=== PATIENT | male | born 1990 | race Caucasian/White ===

== ENCOUNTER 2017-01-16 07:05 | Observation (INO) ==
--- NOTE | 2017-01-16 07:37 | Emergency Department Note ---
Disposition Clinical Impression: Flexor tenosynovitis of finger Disposition: Admitted As Inpatient Condition: Fair Time of Disposition: 08:39 Extremity Problem HPI - General Chief complaint: ED Extremity Injury, Upper Stated complaint: right ring finger swelling Time Seen by Provider: 01/16/17 07:22 Source: patient Limitations: other (appears intoxicated) Nursing Notes Reviewed: Yes Vital Signs Reviewed: Yes - History of Present Illness HPI Narrative: Nontoxic-appearing 26-year-old male presents to the emergency department for a second time within the past 6 hours for evaluation of a right fourth finger injury, pain, and swelling. The patient was evaluated at the same facility last night for the same complaint. At that time, he was given a prescription for clindamycin, 300 mg 3 times daily for 7 days, as well as tramadol, 50 mg twice daily as needed for pain. He has yet to get these prescriptions filled, however complains of increasing pain, redness, and swelling. He denies any fever, chills, nausea, vomiting, or signs/symptoms of a systemic infection. The patient does appear to be intoxicated or under the influence. He can answer questions appropriately, however his mentation is slightly delayed. Of note, the patient was found to be wandering the hallways of this hospital after being discharged at 1:00 this morning. He was escorted back to the emergency department lobby, where he again checked in for a repeat evaluation. Pt Subjective Complaint: joint swelling, joint paint Onset (ago): day(s) (yesterday) Consistency: Worsening Injury Location: other (Right fourth finger) Pain Scale: 10 Quality: sharp Worsens with: range of motion, palpation Associated symptoms: Reports: denies other symptoms - Related Data Home Medications Medication Instructions Recorded Confirmed Citalopram Hydrobromide [Celexa] 40 mg PO DAILY 01/16/17 01/16/17 Dextroamphetamine/Amphetamine 20 mg PO BID 01/16/17 01/16/17 [Adderall 20 mg Tablet] Quetiapine Fumarate [SEROquel] 100 mg PO HS 01/16/17 01/16/17 Allergies Allergy/AdvReac Type Severity Reaction Status Date / Time No Known Allergies Allergy Verified 09/17/16 15:42 All systems ED: reviewed and negative except as stated. Constitutional: Denies: fever, chills, weakness, weight change Eyes: Denies: eye pain, eye discharge, vision change ENT ED: Denies: ear pain, throat pain, dental pain, hearing loss, epistaxis, congestion, dysphagia Cardiovascular: Denies: chest pain, palpitations, dyspnea on exertion, edema, syncope Respiratory: Denies: cough, dyspnea, wheezes, hemoptysis, stridor Gastrointestinal: Denies: abdominal pain, nausea, vomiting, diarrhea, constipation, hematemesis, melena, hematochezia Genitourinary: Denies: urgency, dysuria, frequency, hematuria Musculoskeletal: Reports: as per HPI, joint swelling (Right fourth finger swelling), arthralgia (Right fourth finger pain). Denies: back pain, neck pain , myalgia Integumentary: Denies: rash, abrasion, lesions Neurological: Denies: headache, weakness, numbness, paresthesias, confusion, abnormal gait, vertigo Psychiatric: Denies: anxiety, depression, suicidal thoughts, homicidal thoughts , auditory hallucinations, visual hallucinations Endocrine: Denies: fatigue Hematological/Lymphatic: Denies: easy bleeding, easy bruising Allergic/Immunologic: Denies: facial swelling, urticaria Past Medical History - Past Medical History Attestation: Yes The following information was validated with the patient. Source: patient, nursing notes reviewed Medical history: Reports: arthritis Psychiatric history: Reports: ADHD, bipolar - Social History Smoking Status: Current every day smoker Smokeless Tobacco Status: No Alcohol use: Reports: heavy, recent Drug use: Reports: marijuana Physical Exam - General Limitations: no limitations General appearance: alert, in no apparent distress, appears intoxicated - Head Head exam: atraumatic, normocephalic, normal inspection - Eye Eye exam: Present: normal appearance, PERRL, EOMI. Absent: nystagmus - ENT ENT exam: mucous membranes moist - Neck Neck exam: Present: normal inspection, full ROM, trachea midline. Absent: lymphadenopathy - Respiratory Respiratory exam: Present: normal lung sounds bilaterally. Absent: respiratory distress, wheezes, stridor, accessory muscle use, prolonged expiratory phase - Cardiovascular Cardiovascular exam: Present: regular rate, normal rhythm, normal heart sounds - Abdominal Exam Abdominal exam: Present: soft, Non-Tender, normal bowel sounds. Absent: tenderness, distention, guarding, rebound, rigidity - Expanded Upper Extremity Exam Shoulder exam: Present: normal inspection, full ROM Arm exam: Present: normal inspection, full ROM Elbow exam: Present: normal inspection, full ROM Forearm/Wrist exam: Present: normal inspection, full ROM Hand exam: Present: tenderness, swelling, abrasion, ecchymosis, erythema, other (The patient's right fourth digit is uniformly swollen from the MCP joint distally. Slight erythema noted over the region of the fourth metacarpal. This finger is held in a slight position of flexion at rest. There is pain with active flexion of the fourth digit. There is a breach in the skin of the distal phalanx, lateral aspect with moderate ecchymosis associated. The entire digit is moderately erythematous and warm to the touch.). Absent: full ROM, laceration, skin avulsion, deformity, crepitus, dislocation Neuromotor exam: Normal: wrist extension, thumb opposition, fingers 2-5 abduction Neurosensory exam: Normal: radial nerve, ulnar nerve, 2-point discrimination Vascular exam: Normal: capillary refill, radial pulse, ulnar pulse - Neurological Exam Neurological exam: Present: alert - Psychiatric Psychiatric exam: Present: normal affect, normal mood - Skin Skin exam: Present: warm, dry, intact, normal color Course Course Narrative: 0835: I spoke with Dr. Winn, hospitalist. Dr. Winn accepts patient for admission to the hospitalist service with orthopedic consult. - Consultations Consultation #1: I spoke with Dr. Zamora, orthopedist emission specialist. I discussed with Dr. Zamora my concerns for the possibility of a flexor tenosynovitis given the uniform swelling, flexion at rest, pain with flexion, inability to extend the finger, erythema, and wound. Dr. Zamora recommends admission to the hospitalist service with orthopedic consultation for the administration of IV antibiotics. He recommends Vancomycin and Zosyn. He also recommends forgoing the CT of the right hand. Time: 07:52 Vital Signs Temperature 99.0 F 01/16/17 07:05 Pulse Rate 81 01/16/17 07:05 Respiratory Rate 16 01/16/17 07:05 Blood Pressure 126/73 01/16/17 07:05 O2 Sat by Pulse Oximetry 99 01/16/17 07:05 Temperature 99.0 F 01/16/17 07:05 Pulse Rate 106 01/16/17 08:35 Respiratory Rate 16 01/16/17 08:55 Blood Pressure 127/83 01/16/17 08:55 O2 Sat by Pulse Oximetry 97 01/16/17 08:35 Oxygen Delivery Oxygen Delivery Room Air Extremity Problem, Nontraumati - Medical Records Medical records reviewed: Yes I reviewed the patient's medical records. - Lab Data Lab results reviewed: Yes I reviewed the patient's lab results. Result diagrams: 01/16/17 07:45 01/16/17 07:45 Lab Results 01/16/17 01/16/17 01/16/17 Range/Units 07:45 07:45 07:45 WBC 16.1 H (4.3-11.1) K/mcL RBC 4.35 (4.19-5.50) M/mcL Hgb 13.6 (12.9-16.9) g/dL Hct 40.5 (37.5-50.1) % MCV 93.1 (83.0-100.0) fL MCH 31.3 (28.0-33.3) pg MCHC 33.6 (31.6-35.5) g/dL RDW 12.1 (11.5-14.5) % Plt Count 204 (140-400) K/mcL MPV 9.7 (9.4-12.4) fL Immature Gran % 0.6 (0-4) % Seg Neutrophils % 90.0 % Lymphocytes % 3.1 % Monocytes % 6.1 % Eosinophils % 0.0 % Basophils % 0.2 % Neutrophils # 14.5 H (1.6-8.9) K/mcL Lymphocytes # 0.5 L (0.6-4.6) K/mcL Monocytes # 1.0 (0.0-1.3) K/mcL Eosinophils # 0.0 (0.0-0.6) K/mcL Basophils # 0.0 (0.0-0.2) K/mcL ESR 17 H (0-10) mm/hr Sodium 135 L (136-145) mEq/L Potassium 3.5 (3.5-4.5) mEq/L Chloride 104 (98-109) mEq/L Carbon Dioxide 21 (19-29) mEq/L BUN 16 (8-26) mg/dL Creatinine 0.92 (0.72-1.25) mg/dL Est GFR ( Amer) > 60 (> 60) Est GFR (Non-Af Amer) > 60 (> 60) BUN/Creatinine Ratio 17 (6-26) Glucose 106 H (70-99) mg/dL Calculated Osmolality 282 (280-300) Calcium 9.1 (8.6-10.8) mg/dL - Radiology Data Radiology results reviewed: Yes I reviewed the patient's radiology results. Hand X-Ray 01/16/17 07:53 IMPRESSION: No acute osseous abnormality. Soft tissue swelling of the right ring finger and dorsum of the hand. No soft tissue gas. D/ / Pratibha Meeks MD / Pratibha Meeks MD Interpreting Provider: Pratibha Meeks MD Attestation Statement - Attestation Attestation: I, Tan Foley, examined this patient and my medical decision-making was reviewed with the MUD MIXER/PA/Advanced Practice Nurse/Resident Physician. I agree with the documented findings, disposition and treatment plan as described except to the extent set forth below. 26-year-old male presents with pain and swelling and erythema to the right ring finger. Patient states he woke up at his cousin's house with severe pain in the right hand. He does not remember what injury occurred to the right ring finger. Upon my initial evaluation he has significant pain to forced extension of the right ring finger with a large amount of your edema, swelling surrounding the entire finger extending to the proximal metacarpal phalangeal joint. PA spoke with the orthopedic physician, Dr. Zamora, who recommended admission of the hospital for IV antibiotics and will see him on the floor.
[2017-01-16] MEDS ORDERED: Piperacillin/Tazobactam 3.375 GM in D5% in Water (Mini-Bag+) 100 ML IVPB ONE (07:50)
[2017-01-16] MEDS ORDERED: Vancomycin 1,000 MG in D5% in Water 250 ML IVPB ONE (07:50)
[2017-01-16 07:56] LABS: Basophils % 0.2 %; Hematocrit 40.5 % (37.5-50.1); Hemoglobin 13.6 g/dL (12.9-16.9); Immature Granulocytes % 0.6 % (0-4); Lymphocytes # 0.5 K/mcL (0.6-4.6); Lymphocytes % 3.1 %; Mean Corpuscular HGB Conc 33.6 g/dL (31.6-35.5); Mean Corpuscular Hemoglobin 31.3 pg (28.0-33.3); Mean Corpuscular Volume 93.1 fL (83.0-100.0); Mean Platelet Volume 9.7 fL (9.4-12.4); Monocytes % 6.1 %; Neutrophils # 14.5 K/mcL (1.6-8.9); Platelet Count 204 K/mcL (140-400); Red Blood Count 4.35 M/mcL (4.19-5.50); Red Cell Distribution Width 12.1 % (11.5-14.5)
[2017-01-16] MEDS ORDERED: Ketorolac 30 MG/ML VIAL IVP ONE (07:57)
[2017-01-16 08:12] LABS: BUN/Creatinine Ratio 17 (6-26); Blood Urea Nitrogen 16 mg/dL (8-26); Calcium 9.1 mg/dL (8.6-10.8); Carbon Dioxide 21 mEq/L (19-29); Chloride 104 mEq/L (98-109); Glucose 106 mg/dL (70-99); Osmolality,Calculated 282 (280-300); Potassium 3.5 mEq/L (3.5-4.5); Sodium 135 mEq/L (136-145); eGFR For African Americans > 60 (> 60); eGFR For Non-African Americans > 60 (> 60)
[2017-01-16] MEDS ORDERED: *HR* Morphine 2 MG/ML SYRINGE IVP ONE (09:51)
--- NOTE | 2017-01-16 09:58 | Orthopedic Consult Note ---
Date of Encounter: 01/16/17 Time of Encounter: 09:40 Assessment and Plan (1) Flexor tenosynovitis of finger Current Visit: Yes Status: Acute Elevate RUE inside stockinette from IV pole. ROM of hand as tolerated. Pain control per hospitalist. Continue IV vancomycin and zosyn. Will monitor for any improvement overnight. WBC has increased from 11 to 16.1 over 6hr time frame this morning. ESR elevated at 17. NPO after midnight tonight for possible surgery if no improvement or worsening overnight. Pending drug screen for patient's incoherence. History of Present Illness Chief complaint: right ring finger swelling HPI: Mr. Segura is a 26 year old male who presented to the ER this morning for right finger swelling and pain. He was given script for clindamycin and discharged. Per ER note patient was found wandering the halls of the hospital and brought back to ER and later admitted as swelling and redness had worsened. Patient unable to answer questions appropriately stating this was a work injuries several days ago but then said it happened Friday and then saying he wasnt sure exactly how it happened. He could not remember the actual injury. He thinks he just noticed the swelling early this morning when he originally came to ER. Denies numbness to finger but kept saying the whole hand hurt and could not give any other descriptions. Past Med Surg Social Fam HX - Past Medical History Medical history: arthritis Psychiatric history: ADHD, bipolar - Social History Smoking Status: Current every day smoker Smokeless Tobacco Status: No Alcohol use: heavy, recent Drug use: marijuana Medications and Allergies Citalopram Hydrobromide [Celexa] 40 mg PO DAILY 01/16/17 [History] Dextroamphetamine/Amphetamine [Adderall 20 mg Tablet] 20 mg PO BID 01/16/17 [ History] Quetiapine Fumarate [SEROquel] 100 mg PO HS 01/16/17 [History] Allergies No Known Allergies Allergy (Verified 09/17/16 15:42) ROS unobtainable: due to mental status (patient did not answer questions appropriately, asked me to repeat questions and then would fall asleep during exam. He would startle himself back awake and then ask where he was) All Systems Reviewed: A 10-system review of systems was performed and is negative for pertinent findings except as documented above in the HPI. Physical Exam - Constitutional Vitals: Temp Pulse Resp BP Pulse Ox 99.0 F 106 16 127/83 97 01/16/17 07:05 01/16/17 08:35 01/16/17 08:55 01/16/17 08:55 01/16/17 08:35 - Wrist & Hand right Location of pain: ring finger (Right ring finger moderately swollen uniformely through entire finger with erythema streaking into hand on dorsal side.Small open wound noted to dorsal ulnar side of RF distal phalanx with sourrounding ecchymosis. held in flexed position with limited AROM. Significant pain on passive extension/flexion of the RF. Significant tenderness along flexor tendon sheath upon palpation. NV intact with brisk cap refill) Results - Labs Result Diagrams: 01/16/17 07:45 01/16/17 07:45 Labs: Abnormal lab results WBC 16.1 K/mcL (4.3-11.1) H 01/16/17 07:45 Neutrophils # 14.5 K/mcL (1.6-8.9) H 01/16/17 07:45 Lymphocytes # 0.5 K/mcL (0.6-4.6) L 01/16/17 07:45 ESR 17 mm/hr (0-10) H 01/16/17 07:45 Sodium 135 mEq/L (136-145) L 01/16/17 07:45 Glucose 106 mg/dL (70-99) H 01/16/17 07:45 All other labs normal. - Diagnostic results Wrist/Hand x-ray: report reviewed, image reviewed (no acute bony abnormality, soft tissue swelling with no soft tissue gas) Consult Discharge Plan - Plan Referrals: NO,PCP [Primary Care Provider] - - Attending Attestation Case and plan of care discussed with supervising physician who was available for all aspects of care.
[2017-01-16] MEDS ORDERED: Ondansetron 4 MG/2 ML VIAL IVP PRN (10:12)
[2017-01-16] MEDS ORDERED: Naloxone 0.4 MG/ML INJ IVP PRN (10:12)
[2017-01-16] MEDS ORDERED: Acetaminophen 325 MG TABLET PO PRN (10:12)
--- NOTE | 2017-01-16 10:14 | Internal Med History&Physical ---
Date of Encounter: 01/16/17 Time of Encounter: 09:30 Assessment and Plan (1) Flexor tenosynovitis of finger Current visit: Yes Status: Acute right 4th digit tenosynovitis. He presented to our ED overnight because of pain and swelling on his right 4th and 3rd finger. Patient is alert and oriented x3 but very confused, and restless , and unable to provide a good history of present illness. Per records, he came to our ED overnight and was discharged to home on clindamycin and tramadol but he never left the hospital to get filled his prescription due to severe pain in his right hand. He was found wandering the hallways of this hospital at 1am and was escorted back to the ED. 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 He thinks he noticed swelling and pain on his right fingers 2 days ago but yesterday night, the pain and swelling became so severe that he seek medical attention. He reports fever and chills at home as well as hematuria. No other skin lesions or joint pain. No headache. No penile discharge. No dysuria. No animal or human bite. He lives in a [facility]. He denies any drugs or alcohol use. Xray of hand showed no acute process and no gas. Orthopedic consulted. continue Iv Vancomycin and Zosyn. blood cultures taken. pain control. (2) Cellulitis of ring finger Current visit: Yes Status: Acute plan as above. Qualifiers: Laterality: right Qualified Code(s): L03.011 - Cellulitis of right finger (3) Confusion Current visit: Yes Status: Acute suspect drug abuse but patient denies it. check urine drug screen. (4) Depression Current visit: Yes Status: Acute continue home dose of celexa and seroquel Qualifiers: Depression Type: unspecified Qualified Code(s): F32.9 - Major depressive disorder, single episode, unspecified (5) Hematuria Current visit: Yes Status: Acute new onset this morning. check UA, chlamydia and gonorrhea. Internal Medicine - H&P: HPI Chief complaint: right finger pain for 2 days Admitted From: Home Plans for Post Hospital Care: Home History of present illness: Mr. Segura is a 26 year old male with past medical history of depression on Seroquel and Celexa and ADHD on adderall who presents to our ED overnight because of pain and swelling on his right 4th and 3rd finger. Patient is alert and oriented x3 but very confused, and restless, and unable to provide a good history of present illness. Per records, he came to our ED overnight and was discharged to home on clindamycin and tramadol but he never left the hospital to get filled his prescription due to severe pain in his right hand. He was found wandering the hallways of this hospital at 1am and was escorted back to the ED. 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 He thinks he noticed swelling and pain on his right fingers 2 days ago but yesterday night, the pain and swelling became so severe that he seek medical attention. He reports fever and chills at home as well as hematuria. No other skin lesions or joint pain. No headache. No penile discharge. No dysuria. No animal or human bite. He lives in a [facility]. He denies any drugs or alcohol use. Past Med Surg Social Fam HX - Past Medical History Medical history: arthritis Psychiatric history: ADHD, bipolar, depression - Social History Smoking Status: Current every day smoker Smokeless Tobacco Status: No Alcohol use: heavy, recent Drug use: marijuana - Family History Mother Hx Family Cardiac Disorders: Yes (htn) Internal Medicine - H&P: Meds Citalopram Hydrobromide [Celexa] 40 mg PO DAILY 01/16/17 [History] Dextroamphetamine/Amphetamine [Adderall 20 mg Tablet] 20 mg PO BID 01/16/17 [ History] Quetiapine Fumarate [SEROquel] 100 mg PO HS 01/16/17 [History] Allergies No Known Allergies Allergy (Verified 09/17/16 15:42) All Systems PM: A 10-system review of systems was performed and is negative for pertinent findings except as documented above in the HPI. - Constitutional Vitals: Temp Pulse Resp BP Pulse Ox 99.0 F 106 16 127/83 97 01/16/17 07:05 01/16/17 08:35 01/16/17 08:55 01/16/17 08:55 01/16/17 08:35 General appearance: Present: cooperative, A&O X 3, pleasant, no acute distress, answers questions appropriately - Eye Eye exam: Present: PERRL - Respiratory Respiratory exam: Present: CTAB - Cardiovascular Cardiovascular exam: Present: RRR - GI/Abdominal GI/Abdominal exam: Present: normal bowel sounds, soft. Absent: distended, tenderness - Extremities Exam Extremities exam: Absent: pedal edema Additional comments: right fourth digit: there is erythema, swelling and tenderness to minimal touch from MCP to distal phalange. the finger is held in a flexed position and ROM is limited due to pain. there is a small skin opening on his distal phalange that has a yellow crust and a area of ecchymosis nearby. Third digit has mild swelling. - Neurological Exam Neurological exam: Present: alert, oriented X3, no focal deficits, strengths equal and symetr throughout. Absent: pronater drift, facial droop, speech deficit Additional comments: patient is confused and his speech is delayed. he states that he is in so severe pain that he can not think straight. no neck pain. no neck rigidity. - Skin Skin exam: Absent: intact (patient has multiple skin breaks in his arms and legs. Forehead: there is a yellow crust in between his eyebrows with a red base ulceration. ) Internal Med - H&P Results - Labs CBC & Chem 7: 01/16/17 07:45 01/16/17 07:45
[2017-01-16 10:40] LABS: Alanine Aminotransferase 14 Units/L (0-55); Albumin 3.9 g/dL (3.5-5.0); Albumin/Globulin Ratio 1.4 (1.1-2.2); Alkaline Phosphatase 81 Units/L (38-126); Aspartate Amino Transferase 21 Units/L (5-34); Bilirubin,Direct 0.5 mg/dL (0.0-0.5); Bilirubin,Indirect 1.3 mg/dL (0.0-1.2); Bilirubin,Total 1.8 mg/dL (0.2-1.2); C-Reactive Protein 68 mg/L (Less than 5); Globulin 2.7 g/dL (2.4-3.5); Magnesium 1.8 mg/dL (1.6-2.6); Phosphorous 1.8 mg/dL (2.3-4.7); Total Protein 6.6 g/dL (6.0-8.3)
[2017-01-16 10:42] LABS: INR 1.3; Prothrombin Time 14.5 Seconds (9.4-12.1)
[2017-01-16 10:45] LABS: Activated Partial Thrombo Time 32.1 Seconds (26.0-36.0)
[2017-01-16] MEDS: Ringers Solution, Lactated 1,000 ML IVC SCH (11:52)
[2017-01-16 18:08] LABS: Bilirubin,Urine Negative (Negative); Blood,Urine Small (Negative); Clarity,Urine Clear (Clear); Color,Urine Yellow (Yellow); Glucose,Urine (UA) Normal (Normal); Ketones,Urine 15 mg/dL (Negative); Leukocyte Esterase,Urine Negative (Negative); Nitrite,Urine Negative (Negative); Protein,Urine 30 mg/dL (Neg-Trace); Specific Gravity,Urine >= 1.030 (1.010-1.025); Urobilinogen,Urine Normal (Normal)
[2017-01-16 18:10] LABS: Amphetamine Screen,Urine Positive ng/mL (Cutoff=1000); Barbiturate Screen,Urine Negative ng/mL (Cutoff=200); Benzodiazepines Screen,Urine Negative ng/mL (Cutoff=200); Cannabinoid Screen,Urine Positive ng/mL (Cutoff = 50); Cocaine Screen,Urine Negative ng/mL (Cutoff= 300); Opiate Screen,Urine Negative ng/mL (Cutoff=300); Phencyclidine Screen,Urine Negative ng/mL (Cutoff=25)
[2017-01-16 18:24] LABS: Bacteria,Urine Few per hpf (None-Few)
[2017-01-16] MEDS: *HR* HYDROcodone/Acet 5/325 mg TABLET PO PRN (21:30)
[2017-01-17] MEDS: *HR* Morphine 2 MG/ML SYRINGE IVP PRN ×5 (00:25→20:33)
[2017-01-17] MEDS: Ringers Solution, Lactated 1,000 ML IVC SCH (00:26)
[2017-01-17] MEDS: *HR* HYDROcodone/Acet 5/325 mg TABLET PO PRN ×3 (03:09→22:15)
[2017-01-17 04:59] LABS: Basophils % 0.3 %; Eosinophils # 0.1 K/mcL (0.0-0.6); Hematocrit 38.4 % (37.5-50.1); Hemoglobin 12.8 g/dL (12.9-16.9); Immature Granulocytes % 0.3 % (0-4); Lymphocytes % 11.3 %; Mean Corpuscular HGB Conc 33.3 g/dL (31.6-35.5); Mean Corpuscular Hemoglobin 31.4 pg (28.0-33.3); Mean Corpuscular Volume 94.1 fL (83.0-100.0); Mean Platelet Volume 10.5 fL (9.4-12.4); Monocytes # 1.1 K/mcL (0.0-1.3); Monocytes % 12.1 %; Neutrophils # 6.8 K/mcL (1.6-8.9); Platelet Count 189 K/mcL (140-400); Red Blood Count 4.08 M/mcL (4.19-5.50); Red Cell Distribution Width 12.6 % (11.5-14.5)
[2017-01-17 05:26] LABS: BUN/Creatinine Ratio 14 (6-26); Blood Urea Nitrogen 11 mg/dL (8-26); Calcium 8.4 mg/dL (8.6-10.8); Carbon Dioxide 23 mEq/L (19-29); Chloride 108 mEq/L (98-109); Glucose 113 mg/dL (70-99); Osmolality,Calculated 284 (280-300); Potassium 3.6 mEq/L (3.5-4.5); Sodium 137 mEq/L (136-145); eGFR For African Americans > 60 (> 60); eGFR For Non-African Americans > 60 (> 60)
[2017-01-17] MEDS ORDERED: Lidocaine 1% 20 ML MDV ID ONE (09:31)
[2017-01-17] MEDS: Pantoprazole 40 MG VIAL IVP SCH (09:36)
[2017-01-17] MEDS ORDERED: Ondansetron 4 MG/2 ML VIAL ONE (10:31)
[2017-01-17] MEDS ORDERED: Vancomycin 2,000 MG in D5% in Water 250 ML IVPB SCH (12:00)
--- NOTE | 2017-01-17 13:33 | Internal Med Progress Note ---
Date of Encounter: 01/17/17 Time of Encounter: 13:31 - Assessment and plan (1) Flexor tenosynovitis of finger Current Visit: Yes Status: Acute Assessment and plan: persistent swelling and redness of eliza right hand mostly 4th and 5th finger. reports decreased sensation at the tip of 4th and 5th finger continue IV vanco and Zosyn follow blood cx, seen by ortho , appreciate recommendations planned for bedside I and D today. pain control. (2) Confusion Current Visit: Yes Status: Acute Assessment and plan: no confusion at present alert, awake and orientedx3, may have been confused due to severe pain yest - Subjective Interval history: seen at the bedside, c/o pain and swelling of the right hand, admitted for cellulitis seen by , planned for bedside I ad D. - Constitutional Vitals: Temp Pulse Resp BP Pulse Ox 99.8 F H 61 16 112/69 96 01/17/17 11:04 01/17/17 11:04 01/17/17 11:04 01/17/17 11:04 01/17/17 11:04 General appearance: Present: cooperative, A&O X 3, pleasant, no acute distress, answers questions appropriately Exam: - Eye Eye exam: Present: PERRL - Respiratory Respiratory exam: Present: CTAB - Cardiovascular Cardiovascular exam: Present: RRR - GI/Abdominal GI/Abdominal exam: Present: normal bowel sounds, soft. Absent: distended, tenderness - Extremities Exam Extremities exam: Absent: pedal edema Additional comments: right fourth digit: there is erythema, swelling and tenderness to minimal touch from MCP to distal phalange. the finger is held in a flexed position and ROM is limited due to pain. there is a small skin opening on his distal phalange that has a yellow crust and a area of ecchymosis nearby. Third digit has mild swelling. Neurological Exam Neurological exam: Present: alert, oriented X3, no focal deficits, strengths equal and symetr throughout. Absent: pronater drift, facial droop, speech deficit - Skin Skin exam: Absent: intact (patient has multiple skin breaks in his arms and legs. Forehead: there is a yellow crust in between his eyebrows with a red base ulceration Internal Medicine: Result - Labs CBC & Chem 7: 01/17/17 04:20 01/17/17 04:20 Labs: Short CBC 01/17/17 Range/Units 04:20 WBC 9.1 (4.3-11.1) K/mcL Hgb 12.8 L (12.9-16.9) g/dL Hct 38.4 (37.5-50.1) % Plt Count 189 (140-400) K/mcL Neutrophils # 6.8 (1.6-8.9) K/mcL BMP 01/17/17 04:20 Sodium 137 Potassium 3.6 Chloride 108 Carbon Dioxide 23 BUN 11 Creatinine 0.77 Glucose 113 H Calcium 8.4 L Urine 01/16/17 Range/Units 17:56 Urine Color Yellow (Yellow) Urine Clarity Clear (Clear) Urine pH 6.0 (5.0-8.0) pH Units Ur Specific [place] >= 1.030 H (1.010-1.025) Urine Protein 30 H (Neg-Trace) mg/dL Urine Glucose (UA) Normal (Normal) mg/dL - ABG Interpretation ABG results: PT/INR, D-dimer PT 14.5 Seconds (9.4-12.1) H 01/16/17 10:30 Consult Discharge Plan - Plan Referrals: NO,PCP [Primary Care Provider] -
[2017-01-17] MEDS: Vancomycin 1,250 MG in D5% in Water 250 ML IVPB SCH (14:21)
[2017-01-17] MEDS: Nicotine 14 MG PATCH.TD24 TD SCH (14:21)
--- NOTE | 2017-01-17 15:59 | Orthopedics Progress Note ---
Date of Encounter: 01/17/17 Time of Encounter: 12:45 - Assessment and Plan (1) Flexor tenosynovitis of finger Current Visit: Yes Status: Acute Patient also examined by Dr. Zamora this morning who recommended bedside I&D. I discussed the procedure as well as r/b/a and patient expressed understanding. Consent signed and given to nurse. Right ring finger was prepped and draped in sterile fashion using hibiclense. Digital block performed using 6cc 1% lidocaine. #11blade scapel used to make incision on ulnar side of the ring finger. Area did bleed some with very minimal purulent drainage. cx collected. No deep loculations noted. Area was not large enough to insert packing. Incision irrigated with saline and bulky dry dressings applied. Elevate RUE inside stockinette from IV pole. ROM of hand as tolerated. Pain control per hospitalist. Continue IV vancomycin and zosyn. WBC has decreased from 16.1 to 9.1 today. Subjective Principal diagnosis: right ring finger swelling Interval history: Patient states still having significant pain but better controlled with pain medication. no events overnight. States he did keep his hand elevated in stockinette overnight. admits to numbness to ring finger. Patient more alert and oriented today. 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 He removed a hang nail to the ring finger near the open wound a few days before this all started. Objective Vital signs: Vital Signs Temp Pulse Resp BP Pulse Ox 01/17/17 15:39 99.5 F 82 16 126/71 96 01/17/17 11:04 99.8 F H 61 16 112/69 96 01/17/17 06:49 99.6 F 67 16 116/70 94 01/17/17 04:45 98.6 F 69 18 111/70 96 01/17/17 00:19 99.3 F 72 16 107/64 95 01/16/17 21:00 100.3 F H 86 16 95/58 95 01/16/17 15:56 100.1 F H 87 18 109/67 95 Intake and Output 01/16/17 01/17/17 01/17/17 23:59 07:59 15:59 Intake Total 1000 / 1000 Output Total 300 / 300 250 / 250 700 / 700 Balance -300 / -300 750 / 750 -700 / -700 Intake: IV Fluids 1000 / 1000 Lactated Ringers 1,000 ML 1000 / 1000 @ 75 mls/hr IVC .[id number] [facility] Rx#:[id number] Output: Urine 300 / 300 250 / 250 700 / 700 Other: # Voids 1 Weight 92.034 kg Patient Weight 01/17/17 23:59 Weight 92.034 kg Incision: swollen (right ring finger has worsening uniform swelling and erythema and developed blister like area on ulnar side of finger just proximal to the open wound that is roughly 4cm long. continues to hold finger in flexed postion. no active drainage. Restricted ROM of all fingers but especially the ring finger. significant tenderness along all sides of finger. brisk cap refill , NV intact) - Labs CBC & BMP: 01/17/17 04:20 01/17/17 04:20 Labs: Abnormal lab results RBC 4.08 M/mcL (4.19-5.50) L 01/17/17 04:20 Hgb 12.8 g/dL (12.9-16.9) L 01/17/17 04:20 ESR 17 mm/hr (0-10) H 01/16/17 07:45 PT 14.5 Seconds (9.4-12.1) H 01/16/17 10:30 Glucose 113 mg/dL (70-99) H 01/17/17 04:20 Calcium 8.4 mg/dL (8.6-10.8) L 01/17/17 04:20 Phosphorus 1.8 mg/dL (2.3-4.7) L 01/16/17 07:45 Total Bilirubin 1.8 mg/dL (0.2-1.2) H 01/16/17 07:45 Indirect Bilirubin 1.3 mg/dL (0.0-1.2) H 01/16/17 07:45 C-Reactive Protein 68 mg/L (Less than 5) H 01/16/17 07:45 Ur Specific [place] >= 1.030 (1.010-1.025) H 01/16/17 17:56 Urine Protein 30 mg/dL (Neg-Trace) H 01/16/17 17:56 Urine Ketones 15 mg/dL (Negative) H 01/16/17 17:56 Urine Blood Small (Negative) H 01/16/17 17:56 Urine Microscopic RBC 3-5 per hpf (0-3) H 01/16/17 17:56 Ur Amphetamines Screen Positive ng/mL (Enatip=5489) H 01/16/17 17:30 U Marijuana (THC) Screen Positive ng/mL (Cutoff = 50) H 01/16/17 17:30 Consult Discharge Plan - Plan Referrals: NO,PCP [Primary Care Provider] -
[2017-01-18] MEDS: Vancomycin 1,250 MG in D5% in Water 250 ML IVPB SCH ×2 (00:28→12:29)
[2017-01-18] MEDS: *HR* Morphine 2 MG/ML SYRINGE IVP PRN ×2 (00:34→04:42)
[2017-01-18] MEDS: *HR* HYDROcodone/Acet 5/325 mg TABLET PO PRN ×2 (03:39→09:01)
--- NOTE | 2017-01-18 08:18 | Orthopedics Progress Note ---
Date of Encounter: 01/18/17 Time of Encounter: 08:13 Subjective Principal diagnosis: right ring finger swelling Interval history: S: Patient seen at the bedside. Complains of persistent pain to the right ring finger. Had an I and D yesterday by Destinee Nowak along the dorsal/ulnar aspect of the hand. O: Afebrile, VSS Right ring finger moderately swollen/edametous with edema to the hand. There is a blister that had been unroofed over the dorsal/ulnar aspect of the ring finger Slightly cloudy drainage from this area with focal tenderness most pronounced over this area. He is able go gently flex and extend the digit without significant worsening of his symptoms. Mild tenderness volarly along the digit A: Right ring finger infection P: Continue broad spectrum antibiotics in the mean time. Follow up cultures from yesterdays I and D. Minimal concern for a purulent flexor tenosynovitis. Elevation. Will add toradol to his meds. Objective Vital signs: Vital Signs Temp Pulse Resp BP Pulse Ox 01/18/17 07:05 99.2 F 79 18 125/80 99 01/18/17 03:52 98.8 F 70 16 123/78 96 01/17/17 23:52 99.5 F 72 14 131/82 97 01/17/17 20:42 97 01/17/17 19:18 99.4 F 62 16 116/75 96 01/17/17 15:39 99.5 F 82 16 126/71 96 01/17/17 11:04 99.8 F H 61 16 112/69 96 Intake and Output 01/17/17 01/18/17 01/18/17 23:59 07:59 15:59 Intake Total 250 / 250 350 / 350 Output Total 300 / 300 Balance 250 / 250 50 / 50 Intake: IV Fluids 250 / 250 250 / 250 Vancocin 1,250 MG In 250 / 250 250 / 250 Dextrose 5% 250 ML @ 166. 67 mls/hr IVPB Q12H [facility] Rx#:[id number] Oral 100 / 100 Output: Urine 300 / 300 Other: Weight 93 kg Patient Weight 01/18/17 23:59 Weight 93 kg - Labs CBC & BMP: 01/17/17 04:20 01/17/17 04:20 Labs: Abnormal lab results RBC 4.08 M/mcL (4.19-5.50) L 01/17/17 04:20 Hgb 12.8 g/dL (12.9-16.9) L 01/17/17 04:20 ESR 17 mm/hr (0-10) H 01/16/17 07:45 PT 14.5 Seconds (9.4-12.1) H 01/16/17 10:30 Glucose 113 mg/dL (70-99) H 01/17/17 04:20 Calcium 8.4 mg/dL (8.6-10.8) L 01/17/17 04:20 Phosphorus 1.8 mg/dL (2.3-4.7) L 01/16/17 07:45 Total Bilirubin 1.8 mg/dL (0.2-1.2) H 01/16/17 07:45 Indirect Bilirubin 1.3 mg/dL (0.0-1.2) H 01/16/17 07:45 C-Reactive Protein 68 mg/L (Less than 5) H 01/16/17 07:45 Ur Specific [place] >= 1.030 (1.010-1.025) H 01/16/17 17:56 Urine Protein 30 mg/dL (Neg-Trace) H 01/16/17 17:56 Urine Ketones 15 mg/dL (Negative) H 01/16/17 17:56 Urine Blood Small (Negative) H 01/16/17 17:56 Urine Microscopic RBC 3-5 per hpf (0-3) H 01/16/17 17:56 Ur Amphetamines Screen Positive ng/mL (Mtsszk=7430) H 01/16/17 17:30 U Marijuana (THC) Screen Positive ng/mL (Cutoff = 50) H 01/16/17 17:30 Consult Discharge Plan - Plan Referrals: NO,PCP [Primary Care Provider] -
[2017-01-18] MEDS: Nicotine 14 MG PATCH.TD24 TD SCH (09:00)
[2017-01-18] MEDS: Pantoprazole 40 MG VIAL IVP SCH (09:01)
[2017-01-18] MEDS: Ketorolac 30 MG/ML VIAL IVP SCH ×3 (12:01→22:58)
--- NOTE | 2017-01-18 15:22 | Internal Med Progress Note ---
Date of Encounter: 01/18/17 Time of Encounter: 15:19 - Assessment and plan (1) Flexor tenosynovitis of finger Current Visit: Yes Status: Acute Assessment and plan: persistent swelling and redness of eliza right hand mostly 4th and 5th finger, appears clinically better than yest. continue IV vanco and Zosyn prelim blood cx shows no growth, seen by ortho , appreciate recommendations s/p bedside I and D yesterday pain control. (2) Confusion Current Visit: Yes Status: Acute Assessment and plan: no confusion at present alert, awake and orientedx3, may have been confused due to severe pain yest - Subjective Interval history: seen at the bedside, c/o persistent pain and swelling of the right hand, admitted for cellulitis followed by , s/p bedside I ad D yesterday. - Constitutional Vitals: Temp Pulse Resp BP Pulse Ox 98.7 F 73 14 130/85 98 01/18/17 11:20 01/18/17 11:20 01/18/17 11:20 01/18/17 11:20 01/18/17 11:20 General appearance: Present: cooperative, A&O X 3, pleasant, no acute distress, answers questions appropriately Exam: - Eye Eye exam: Present: PERRL - Respiratory Respiratory exam: Present: CTAB - Cardiovascular Cardiovascular exam: Present: RRR - GI/Abdominal GI/Abdominal exam: Present: normal bowel sounds, soft. Absent: distended, tenderness - Extremities Exam Extremities exam: Absent: pedal edema Additional comments: right fourth digit: there is erythema, swelling and tenderness to minimal touch from MCP to distal phalange. wrapped in gauze,ROM is limited due to pain. Third digit has mild swelling. Neurological Exam Neurological exam: Present: alert, oriented X3, no focal deficits, strengths equal and symetr throughout. Absent: pronater drift, facial droop, speech deficit - Skin Skin exam: Absent: intact (patient has multiple skin breaks in his arms and legs. Forehead: there is a yellow crust in between his eyebrows with a red base ulceration Internal Medicine: Result - Labs CBC & Chem 7: 01/17/17 04:20 01/17/17 04:20 - ABG Interpretation ABG results: PT/INR, D-dimer PT 14.5 Seconds (9.4-12.1) H 01/16/17 10:30 Consult Discharge Plan - Plan Referrals: NO,PCP [Non-Partnered Physician] -
[2017-01-19] MEDS: *HR* HYDROcodone/Acet 5/325 mg TABLET PO PRN ×5 (00:13→20:32)
[2017-01-19] MEDS: Vancomycin 1,250 MG in D5% in Water 250 ML IVPB SCH ×3 (00:15→20:29)
[2017-01-19] MEDS: Ketorolac 30 MG/ML VIAL IVP SCH ×3 (06:49→18:58)
--- NOTE | 2017-01-19 09:35 | Orthopedics Progress Note ---
Date of Encounter: 01/19/17 Time of Encounter: 09:33 Subjective Principal diagnosis: right ring finger swelling Interval history: S: Patient seen at the bedside. Pain improved significantly compared to yesterday. No new complaints. O: Afebrile, VSS Right ring finger mildly swollen/edametous with edema to the hand, improved compared to yesterday. There is a blister that had been unroofed over the dorsal/ulnar aspect of the ring finger No drainage from this area with focal tenderness most pronounced over this area. He is able go flex and extend the digit without significant worsening of his symptoms. A: Right ring finger infection, improving P: Continue broad spectrum antibiotics in the mean time. Elevation. Since he is now improving, continue Abx with anticipation of switching to orals soon. No plans or surgical drainage. Will continue to follow clinically. Objective Vital signs: Vital Signs Temp Pulse Resp BP Pulse Ox 01/19/17 07:09 97.6 F 61 16 128/79 97 01/19/17 04:24 98.6 F 62 15 131/83 97 01/18/17 23:19 98.3 F 82 16 126/72 94 01/18/17 19:53 98.5 F 61 16 132/88 97 01/18/17 16:12 98.5 F 60 16 119/75 99 01/18/17 11:20 98.7 F 73 14 130/85 98 Intake and Output 01/18/17 01/19/17 01/19/17 23:59 07:59 15:59 Intake Total 250 / 250 Balance 250 / 250 Intake: IV Fluids 250 / 250 Vancocin 1,250 MG In 250 / 250 Dextrose 5% 250 ML @ 166. 67 mls/hr IVPB Q12H [facility] Rx#:[id number] Other: Weight 91.9 kg Patient Weight 01/19/17 23:59 Weight 91.9 kg - Labs CBC & BMP: 01/17/17 04:20 01/17/17 04:20 Labs: Abnormal lab results RBC 4.08 M/mcL (4.19-5.50) L 01/17/17 04:20 Hgb 12.8 g/dL (12.9-16.9) L 01/17/17 04:20 ESR 17 mm/hr (0-10) H 01/16/17 07:45 PT 14.5 Seconds (9.4-12.1) H 01/16/17 10:30 Glucose 113 mg/dL (70-99) H 01/17/17 04:20 Calcium 8.4 mg/dL (8.6-10.8) L 01/17/17 04:20 Phosphorus 1.8 mg/dL (2.3-4.7) L 01/16/17 07:45 Total Bilirubin 1.8 mg/dL (0.2-1.2) H 01/16/17 07:45 Indirect Bilirubin 1.3 mg/dL (0.0-1.2) H 01/16/17 07:45 C-Reactive Protein 68 mg/L (Less than 5) H 01/16/17 07:45 Ur Specific [place] >= 1.030 (1.010-1.025) H 01/16/17 17:56 Urine Protein 30 mg/dL (Neg-Trace) H 01/16/17 17:56 Urine Ketones 15 mg/dL (Negative) H 01/16/17 17:56 Urine Blood Small (Negative) H 01/16/17 17:56 Urine Microscopic RBC 3-5 per hpf (0-3) H 01/16/17 17:56 Ur Amphetamines Screen Positive ng/mL (Fclsuh=8517) H 01/16/17 17:30 U Marijuana (THC) Screen Positive ng/mL (Cutoff = 50) H 01/16/17 17:30 Consult Discharge Plan - Plan Referrals: NO,PCP [Non-Partnered Physician] -
[2017-01-19] MEDS: Pantoprazole 40 MG VIAL IVP SCH (10:48)
[2017-01-19] MEDS: Nicotine 14 MG PATCH.TD24 TD SCH (10:48)
[2017-01-19 11:53] LABS: Vancomycin,Trough 5.6 mcg/mL (10-20)
--- NOTE | 2017-01-19 12:17 | Internal Med Progress Note ---
Date of Encounter: 01/19/17 Time of Encounter: 12:14 - Assessment and plan (1) Flexor tenosynovitis of finger Current Visit: Yes Status: Acute Assessment and plan: persistent swelling and redness of eliza right hand mostly 4th and 5th finger, appears clinically better than yest. continue IV vanco prelim blood cx shows no growth, seen by ortho , appreciate recommendations s/p bedside I and D pain control. will plan dc tomm on oral antibiotics. (2) Confusion Current Visit: Yes Status: Acute Assessment and plan: no confusion at present alert, awake and orientedx3, may have been confused due to severe pain yest - Subjective Interval history: seen at the bedside, reports improvement in pain and swelling of the right hand, admitted for cellulitis followed by , s/p bedside I ad D . continue IV vanco for today, plan to dc tomm on oral. - Constitutional Vitals: Temp Pulse Resp BP Pulse Ox 97.6 F 61 16 128/79 97 01/19/17 07:09 01/19/17 07:09 01/19/17 07:09 01/19/17 07:09 01/19/17 07:09 General appearance: Present: cooperative, A&O X 3, pleasant, no acute distress, answers questions appropriately Exam: Exam: - Eye Eye exam: Present: PERRL - Respiratory Respiratory exam: Present: CTAB - Cardiovascular Cardiovascular exam: Present: RRR - GI/Abdominal GI/Abdominal exam: Present: normal bowel sounds, soft. Absent: distended, tenderness - Extremities Exam Extremities exam: Absent: pedal edema Additional comments: right fourth digit: there is improved erythema, swelling and tenderness MCP to distal phalange. wrapped in gauze,ROM is limited due to pain. Third digit has mild swelling. Neurological Exam Neurological exam: Present: alert, oriented X3, no focal deficits, strengths equal and symetr throughout. Absent: pronater drift, facial droop, speech deficit - Skin Skin exam: Absent: intact (patient has multiple skin breaks in his arms and legs. Forehead: there is a yellow crust in between his eyebrows with a red base ulceration Internal Medicine: Result - Labs CBC & Chem 7: 01/17/17 04:20 01/17/17 04:20 - ABG Interpretation ABG results: PT/INR, D-dimer PT 14.5 Seconds (9.4-12.1) H 01/16/17 10:30 Consult Discharge Plan - Plan Referrals: NO,PCP [Non-Partnered Physician] -
[2017-01-19 15:35] LABS: BUN/Creatinine Ratio 12 (6-26); Blood Urea Nitrogen 8 mg/dL (8-26); eGFR For African Americans > 60 (> 60); eGFR For Non-African Americans > 60 (> 60)
[2017-01-20] MEDS: Ketorolac 30 MG/ML VIAL IVP SCH ×2 (00:06→09:30)
[2017-01-20] MEDS: *HR* HYDROcodone/Acet 5/325 mg TABLET PO PRN ×3 (00:35→10:05)
[2017-01-20] MEDS: Vancomycin 1,250 MG in D5% in Water 250 ML IVPB SCH (03:49)
[2017-01-20] MEDS: Nicotine 14 MG PATCH.TD24 TD SCH (09:38)
--- NOTE | 2017-01-20 09:51 | Discharge Summary ---
Date of Encounter: 01/20/17 Time of Encounter: 09:49 - Discharge Diagnosis (1) Flexor tenosynovitis of finger Priority: Primary Status: Acute (2) Confusion Priority: Primary Status: Acute - Discharge Medications Prescriptions: HYDROcodone/Acet 5/325 mg [[place] 5-325 mg] 1 tab PO Q4HR PRN #20 tablet PRN Reason: Moderate Pain (4-6) Amoxicillin/Clavulanate [Augmentin] 875 mg PO BIDWM #10 tablet Home Medications: Citalopram Hydrobromide [Celexa] 40 mg PO DAILY 01/16/17 [History] Dextroamphetamine/Amphetamine [Adderall 20 mg Tablet] 20 mg PO BID 01/16/17 [ History] Quetiapine Fumarate [Seroquel] 100 mg PO HS 01/16/17 [History] Amoxicillin/Clavulanate [Augmentin] 875 mg PO BIDWM #10 tablet 01/20/17 [Rx] HYDROcodone/Acet 5/325 mg [[place] 5-325 mg] 1 tab PO Q4HR PRN #20 tablet [Rx] Allergies/Adverse Reactions: Allergies No Known Allergies Allergy (Verified 09/17/16 15:42) Date of admission: 01/16/17 08:43 Primary care physician: Tobias Michael DO Discharging clinician: Denys Whiting Anticipated date of discharge: 01/20/17 - Patient Status Disposition: Home, Self-Care Condition: Fair Functional capacity at discharge: independent ambulation Overall status at discharge: patient is back to baseline - Discharge Instructions Follow Up With: Destinee Mcallister, PAC [Physician Addiction Professional] - 01/27/17 2:30 pm NO,PCP [Non-Partnered Physician] - Additional Instructions: THREE TIMES A DAY, REMOVE YOUR DRESSING AND WASH FINGER WITH SOAP AND WATER. THEN, GENTLY PAT DRY AND COVER WITH GAUZE AND WRAP WITH COBAN. PLEASE ATTEND ALL APPOINTMENTS SCHEDULED. PLEASE TAKE ALL MEDICATIONS PRESCRIBED. CALL DESTINEE MCALLISTER'S OFFICE IF YOU HAVE ANY GREEN, YELLOW, BROWN OR FOUL SMELLING DRAINAGE FROM THE SITE. CALL IF SWELLING OR REDNESS WORSENS, OR IF YOU HAVE ANY OTHER CONCERNS. FIND A PRIMARY CARE PROVIDER TO ESTABLISH CARE. - Diet and Activity Activity: resume usual activities as tolerated Diet: advance to your usual diet Interval History: Mr. Segura is a 26 year old male with past medical history of depression on Seroquel and Celexa and ADHD on adderall who presents to our ED overnight because of pain and swelling on his right 4th and 3rd finger.No animal or human bite. He lives in a long-term. He denies any drugs or alcohol use. Per records, he came to our ED overnight and was discharged to home on clindamycin and tramadol but he never left the hospital to get filled his prescription due to severe pain in his right hand. He was found wandering the hallways of this hospital at 1am and was escorted back to the ED. 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 He thinks he noticed swelling and pain on his right fingers 2 days ago but yesterday night, the pain and swelling became so severe that he seek medical attention. He reports fever and chills at home as well as hematuria. No other skin lesions or joint pain. No headache. No penile discharge. No dysuria. No animal or human bite. He lives in a long-term. He denies any drugs or alcohol use. Xray of hand showed no acute process and no gas. ortho was consulted and he was started on Iv antibiotics, he underwent bedside Iand D with ortho and was continued on IV antibiotics he is being dc today in stable condition, the cellulitis has improved clinically and will be dc with oral antibiotics , will f/u with ortho as OP. Hospital course: Mr. Segura is a 26 year old male - Time Spent with Patient Total time spent providing and/or coordinating discharge services: - Constitutional Vitals: Temp Pulse Resp BP Pulse Ox 98.3 F 56 18 132/81 98 01/20/17 06:46 01/20/17 06:46 01/20/17 06:46 01/20/17 06:46 01/20/17 06:46 General appearance: Present: cooperative, A&O X 3, pleasant, no acute distress, answers questions appropriately Exam: - Eye Eye exam: Present: PERRL - Respiratory Respiratory exam: Present: CTAB - Cardiovascular Cardiovascular exam: Present: RRR - GI/Abdominal GI/Abdominal exam: Present: normal bowel sounds, soft. Absent: distended, tenderness - Extremities Exam Extremities exam: Absent: pedal edema Additional comments: right fourth digit: there is erythema, swelling and tenderness but has improved , wrapped in gauze,ROM is limited due to pain. Third digit has mild swelling. Neurological Exam Neurological exam: Present: alert, oriented X3, no focal deficits, strengths equal and symetr throughout. Absent: pronater drift, facial droop, speech deficit - Skin Skin exam: Absent: intact (patient has multiple skin breaks in his arms and legs. Forehead: there is a yellow crust in between his eyebrows with a red base ulceration
[2017-01-20 10:55] VITALS: BP 106/61
[2017-01-20] MEDS ORDERED: Aminoglycoside Consult 1 EACH MC ONE (12:41)
== END 2017-01-20 12:42 | disposition home or self-care (01) ==
LOC: EMEROO 07:05 → 3NENU 07:05
PROVIDERS: ADMIT Internal Medicine; ATTEND Internal Medicine Endocrinology, Diabetes & Metabolism

== ENCOUNTER 2017-01-28 18:43 | Inpatient (IN) ==
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
[2017-01-28 19:34] LABS: Amphetamine Screen,Urine Negative ng/mL (Cutoff=1000); Barbiturate Screen,Urine Negative ng/mL (Cutoff=200); Benzodiazepines Screen,Urine Negative ng/mL (Cutoff=200); Cannabinoid Screen,Urine Positive ng/mL (Cutoff = 50); Cocaine Screen,Urine Negative ng/mL (Cutoff= 300); Opiate Screen,Urine Positive ng/mL (Cutoff=300); Phencyclidine Screen,Urine Negative ng/mL (Cutoff=25)
[2017-01-28 19:47] LABS: Basophils # 0.1 K/mcL (0.0-0.2); Basophils % 0.7 %; Eosinophils # 0.1 K/mcL (0.0-0.6); Eosinophils % 1.8 %; Hematocrit 42.8 % (37.5-50.1); Hemoglobin 14.2 g/dL (12.9-16.9); Immature Granulocytes % 0.4 % (0-4); Immature Platelets 2.5 % (1.1-6.1); Lymphocytes # 2.2 K/mcL (0.6-4.6); Lymphocytes % 29.7 %; Mean Corpuscular HGB Conc 33.2 g/dL (31.6-35.5); Mean Corpuscular Hemoglobin 30.8 pg (28.0-33.3); Mean Corpuscular Volume 92.8 fL (83.0-100.0); Mean Platelet Volume 9.3 fL (9.4-12.4); Monocytes # 0.9 K/mcL (0.0-1.3); Monocytes % 11.6 %; Neutrophils # 4.1 K/mcL (1.6-8.9); Platelet Count 408 K/mcL (140-400); Red Blood Count 4.61 M/mcL (4.19-5.50); Red Cell Distribution Width 12.1 % (11.5-14.5); Segmented Neutrophils % 55.8 %
[2017-01-28] MEDS ORDERED: *HR* HYDROcodone/Acet 10/325 mg TABLET PO ONE (20:00)
[2017-01-28 20:01] LABS: BUN/Creatinine Ratio 12 (6-26); Blood Urea Nitrogen 9 mg/dL (8-26); Calcium 8.8 mg/dL (8.6-10.8); Carbon Dioxide 25 mEq/L (19-29); Chloride 106 mEq/L (98-109); Glucose 86 mg/dL (70-99); Osmolality,Calculated 286 (280-300); Potassium 3.7 mEq/L (3.5-4.5); Sodium 139 mEq/L (136-145); eGFR For African Americans > 60 (> 60); eGFR For Non-African Americans > 60 (> 60)
[2017-01-28 20:04] LABS: Platelet Estimate Normal (Normal); Reactive Lymphocytes Present (Not Present)
[2017-01-28 20:06] LABS: Acetaminophen < 1.0 mcg/mL (10-30); Ethanol < 10 mg/dL (0-10); Salicylate < 5.0 mg/dL (15-30)
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
[2017-01-29] MEDS ORDERED: MOM Conc 10 ML UD.LIQ PO PRN (15:50)
[2017-01-29] MEDS ORDERED: Haloperidol Lactate 5 MG/ML VIAL IM PRN (15:50)
[2017-01-29] MEDS ORDERED: Mag Hydrox/Al Hydrox/Simeth 30 ML UDC PO PRN (15:50)
[2017-01-29] MEDS: Ibuprofen 400 MG TABLET PO PRN (17:01)
[2017-01-29] MEDS: Nicotine 2 MG GUM BC PRN (17:02)
[2017-01-30] MEDS: Nicotine 2 MG GUM BC PRN ×2 (13:54→19:09)
--- NOTE | 2017-01-30 14:01 | Psychiatry History & Physical ---
Date of Encounter: 01/30/17 Time of Encounter: 13:53 History of Present Illness Patient Stated Chief Complaint: suicidal ideation Medicare Admission Attestation: For traditional Medicare patients the provided hospital inpatient services are reasonable and necessary and in the case of services not specified as inpatient -only under 42 CFR 419.22 (n), that they are appropriately provided as inpatient services in accordance 42 CFR 412.3. For Critical Access Hospital the patient may reasonably be expected to be discharged or transferred to a hospital within 96 hours after admission to the Critical Access Hospital. Admitted From: Home Plans for Post Hospital Care: Home History of Present Illness: Mr. Segura is a 26 year old male who was admitted secondary to SI. Presented to the ER claiming his [facility]....Celexa, Seroquel, Adderall, and [place] for an infection in his finger. Reported he would no longer feel suicidal if he could be placed back on his medications. Given Celexa and Seroquel. Informed he would need to return to outpatient provider who he has a contract with for controlled substances for the others. Continued to endorse SI without full medication regimen so admitted to 1A. Today he reports feeling the same. Claims Celexa and Seroquel only work with Adderall in the mix. Has an appointment February 12 with his outpatient provider. Reported his diagnosis is Bipolar Disorder, however, he also agreed with ADHD when asked if he had ever received that diagnosis as Adderall is not typically used for other psychiatric conditions. Informed him ADHD is rarely treated in an inpatient setting. Unclear discharge plan as he does not seem to stay in one place for very long. Denied medical problems or substance abuse problems. Past Med Surg Social Fam HX - Past Medical History Medical history: arthritis - Past Psychiatric History Psychiatric history: Reports: bipolar Family psychiatric history: Unknown Family History of Suicide: Unknown - Past Surgical History Surgical History: non-contributory - Social History Smoking Status: Current every day smoker Smokeless Tobacco Status: No Alcohol use: occasionally Drug use: marijuana - Family History Mother Hx Family Cardiac Disorders: Yes (htn) Medications & Allergies Citalopram Hydrobromide [Celexa] 40 mg PO DAILY 01/16/17 [History] Dextroamphetamine/Amphetamine [Adderall 20 mg Tablet] 20 mg PO BID 01/16/17 [ History] Quetiapine Fumarate [Seroquel] 100 mg PO HS 01/16/17 [History] Allergies No Known Allergies Allergy (Verified 01/28/17 18:50) Review of Systems Constitutional: Denies: fever, chills, weakness, weight change Eyes: Denies: eye pain, vision change Ears, Nose, Throat: Denies: ear pain, throat pain, dental pain, hearing loss, congestion Cardiovascular: Denies: chest pain, palpitations, dyspnea on exertion Respiratory: Denies: cough, dyspnea, wheezes Gastrointestinal: Denies: abdominal pain, nausea, vomiting, diarrhea, constipation Genitourinary male: Denies: urgency, dysuria, frequency, genital lesions Genitourinary female: Denies: urgency, dysuria, frequency, abnormal menses, dyspareunia Musculoskeletal: Reports: joint pain Neurological: Denies: headache, weakness, numbness, memory loss Endocrine: Denies: fatigue, heat or cold intolerance Hematologic/Lymphatic: Denies: easy bruising, lymphadenopathy Allergic/Immunologic: Denies: urticaria, itchy eyes Mental Status Exam Patient orientation: Yes Person, Yes Time, Yes Place Level of alertness: Alert Patient appearance: Appropriate, Well Groomed Behavior: calm, cooperative Psychomotor activity: Normal Eye contact: Minimal Contact Mood description: Irritable Affect description: congruent with mood Speech pattern: Normal rate, Normal rhythm, Normal tone Speech volume: Normal Thought process: Linear, Goal Oriented Thought content: Yes Suicidal ideation Perceptual disturbances: No Auditory hallucinations, No Visual hallucinations Attention span: Capable of Focused Attention Memory description: Grossly Intact Patient reliability: Questionable Historian Intelligence estimate: Average Judgment: Limited Insight: Minimal Exam - HEENT Head exam IM: Present: atraumatic Eye exam IM: Present: EOMI - Neurological Neurological exam IM: Present: alert, oriented X3 - Respiratory Respiratory exam IM: Present: CTAB - GI/Abdominal GI/Abdominal exam IM: Present: normal bowel sounds - Extremities Extremities exam IM: Present: tenderness - Skin Skin exam IM: Present: normal color Results - Vital Signs Vital signs: Temp Pulse Resp BP Pulse Ox 98.4 F 80 18 120/72 100 01/29/17 20:53 01/29/17 20:53 01/29/17 20:53 01/29/17 20:53 01/29/17 11:39 - Labs Labs: Laboratory Last Values WBC 7.3 K/mcL (4.3-11.1) 01/28/17 19:39 RBC 4.61 M/mcL (4.19-5.50) 01/28/17 19:39 Hgb 14.2 g/dL (12.9-16.9) 01/28/17 19:39 Hct 42.8 % (37.5-50.1) 01/28/17 19:39 MCV 92.8 fL (83.0-100.0) 01/28/17 19:39 MCH 30.8 pg (28.0-33.3) 01/28/17 19:39 MCHC 33.2 g/dL (31.6-35.5) 01/28/17 19:39 RDW 12.1 % (11.5-14.5) 01/28/17 19:39 Plt Count 408 K/mcL (140-400) H 01/28/17 19:39 MPV 9.3 fL (9.4-12.4) L 01/28/17 19:39 Immature Gran % 0.4 % (0-4) 01/28/17 19:39 Seg Neutrophils % 55.8 % 01/28/17 19:39 Lymphocytes % 29.7 % 01/28/17 19:39 Monocytes % 11.6 % 01/28/17 19:39 Eosinophils % 1.8 % 01/28/17 19:39 Basophils % 0.7 % 01/28/17 19:39 Neutrophils # 4.1 K/mcL (1.6-8.9) 01/28/17 19:39 Lymphocytes # 2.2 K/mcL (0.6-4.6) 01/28/17 19:39 Monocytes # 0.9 K/mcL (0.0-1.3) 01/28/17 19:39 Eosinophils # 0.1 K/mcL (0.0-0.6) 01/28/17 19:39 Basophils # 0.1 K/mcL (0.0-0.2) 01/28/17 19:39 Reactive Lymphocytes Present (Not Present) A 01/28/17 19:39 Platelet Estimate Normal (Normal) 01/28/17 19:39 Immature Plt Fraction 2.5 % (1.1-6.1) 01/28/17 19:39 Sodium 139 mEq/L (136-145) 01/28/17 19:39 Potassium 3.7 mEq/L (3.5-4.5) 01/28/17 19:39 Chloride 106 mEq/L (98-109) 01/28/17 19:39 Carbon Dioxide 25 mEq/L (19-29) 01/28/17 19:39 BUN 9 mg/dL (8-26) 01/28/17 19:39 Creatinine 0.76 mg/dL (0.72-1.25) 01/28/17 19:39 Est GFR ( Amer) > 60 (> 60) 01/28/17 19:39 Est GFR (Non-Af Amer) > 60 (> 60) 01/28/17 19:39 BUN/Creatinine Ratio 12 (6-26) 01/28/17 19:39 Glucose 86 mg/dL (70-99) 01/28/17 19:39 Calculated Osmolality 286 (280-300) 01/28/17 19:39 Calcium 8.8 mg/dL (8.6-10.8) 01/28/17 19:39 Salicylates < 5.0 mg/dL (15-30) L 01/28/17 19:39 Urine Opiates Screen Positive ng/mL (Awnbhi=662) H 01/28/17 19:20 Acetaminophen < 1.0 mcg/mL (10-30) L 01/28/17 19:39 Ur Barbiturates Screen Negative ng/mL (Pnojec=065) 01/28/17 19:20 Ur Phencyclidine Scrn Negative ng/mL (Cutoff=25) 01/28/17 19:20 Ur Amphetamines Screen Negative ng/mL (Cvjsuf=5871) 01/28/17 19:20 U Benzodiazepines Scrn Negative ng/mL (Nnofhi=323) 01/28/17 19:20 Urine Cocaine Screen Negative ng/mL (Cutoff= 300) 01/28/17 19:20 U Marijuana (THC) Screen Positive ng/mL (Cutoff = 50) H 01/28/17 19:20 Ethyl Alcohol < 10 mg/dL (0-10) 01/28/17 19:39 Assessment and Plan (1) Bipolar disorder Current visit: Yes Status: Acute Plan: Admit inpatient for safety and stabilization, Close observation, Suicide Precautions per unit protocol, Encourage participation in unit milieu, Group Therapy, Monitor sleep, Monitor appetite Risks, benefits, side effects, alternatives discussed w/pt: Yes Patient agreeable to treatment: Yes Plans for Post Hospital Care: Home Estimated Length of Stay (Days): 4 Qualifiers: Active/Remission status: currently active Current bipolar episode type: depressed Current episode severity: moderate Qualified Code(s): F31.32 - Bipolar disorder, current episode depressed, moderate
[2017-01-30] MEDS: Ibuprofen 400 MG TABLET PO PRN (19:09)
[2017-01-31] MEDS: Nicotine 2 MG GUM BC PRN ×4 (08:42→21:00)
--- NOTE | 2017-01-31 13:37 | Psychiatry Progress Note ---
Date of Encounter: 01/31/17 Time of Encounter: 13:32 Subjective Interval history: Client still having significant pain in finger. Removed bandage and finger does look infected. Red and swollen. Client is unsure if he is still supposed to be taking antibiotics or when he is scheduled for follow-up for care. Will consult wound care or hospitalist for advice on best way to manage infection and pain. Client is denying SI today but reports he is isolating and does not want to talk to anyone. Feeling anxious. Asking to try Wellbutrin. Unsure if he has tried this medication in the past but feels Celexa is not working for him and he is hearing good things from the other patients about Wellbutrin. Wellbutrin may also help with ADHD if that is an accurate diagnosis for him. Will also help replace some of the activation he feels he is missing from not getting the Adderall. May be beneficial in this situation although he may not get significant anxiety relief from it. Review of Systems Constitutional: Denies: fever, chills, weakness, weight change Eyes: Denies: eye pain, vision change Ears, Nose, Throat: Denies: ear pain, throat pain, dental pain, hearing loss, congestion Cardiovascular: Denies: chest pain, palpitations, dyspnea on exertion Respiratory: Denies: cough, dyspnea, wheezes Gastrointestinal: Denies: abdominal pain, nausea, vomiting, diarrhea, constipation Musculoskeletal: Reports: joint swelling, joint pain Neurological: Denies: headache, weakness, numbness, memory loss Objective: Exam Patient orientation: Yes Person, Yes Time, Yes Place Level of alertness: Alert Patient appearance: Appropriate, Well Groomed Behavior: calm, cooperative Psychomotor activity: Normal Eye contact: Minimal Contact Mood description: Depressed, Anxious Affect description: congruent with mood Speech pattern: Normal rate, Normal rhythm, Normal tone Speech volume: Normal Thought process: Linear, Goal Oriented Thought content: No Suicidal ideation, No Homicidal ideation, No Overt delusions Perceptual disturbances: No Auditory hallucinations, No Visual hallucinations Judgment: Fair Insight: Partial Results - Vital Signs Vital Signs: Temp Pulse Resp BP Pulse Ox 98.4 F 60 18 117/72 100 01/31/17 08:43 01/31/17 08:43 01/31/17 08:43 01/31/17 08:43 01/29/17 11:39 Assessment and Plan (1) Bipolar disorder Current visit: Yes Status: Acute Plan: Continue hospitalization, Close observation, Suicide Precautions per unit protocol, Encourage participation in unit milieu, Group Therapy, Monitor sleep, Monitor appetite Risks, benefits, side effects, alternatives discussed w/pt: Yes Patient agreeable to treatment: Yes Qualifiers: Active/Remission status: currently active Current bipolar episode type: depressed Current episode severity: moderate Qualified Code(s): F31.32 - Bipolar disorder, current episode depressed, moderate Consult Discharge Plan - Plan Referrals: [facility] [Outside] - 02/18/17 2:30 pm (The above appointment is with Jannet Plummer, for mental health and substance abuse counseling. When you come to your first appointment, you will have an orientation to the agency and meet with the counselor. Please bring the following with you to your first visit to the clinic: 1) proof of household income (two consecutive pay stubs, social security award letter, bank statement , statement letter from [facility], child support statement, IRS 1040 or W2 form, or a statement from the person who financially supports you stating they help provide for your basic needs), 2) proof of residency (drivers license, a piece of mail showing your address, a statement from person you live with verifying you live at their address), 3) your social security card, 4) photo ID, 5) your insurance card (if you have commercial insurance you must call to obtain a prior authorization number before you arrive to your first appointment) and 6) if you do not have insurance but have applied for Medicaid, please bring verification you have applied. You may contact the office regularly to check for cancellations that may allow you to be seen sooner. ) Aureliano Beebe PAC [Physician Industrial Waste Treatment Technician] - 02/18/17 4:00 pm (The above appointment is with Aureliano Beebe's associate, Maura Flanagan CNP, at [facility]. This appointment is to establish you with a primary care provider. Your needs for medication and/or Vivitrol will be assessed and treated as indicated as well. Please arrive 15 minutes early to complete paperwork. Please bring your insurance card, photo ID and list of current medications to your first appointment. This is the first available appointment. You may contact the office regularly to check for cancellations that may allow you to be seen sooner. )
--- NOTE | 2017-01-31 14:11 | Internal Medicine Consult Note ---
Date of Encounter: 01/31/17 Time of Encounter: 14:08 - Assessment and Plan (1) Flexor tenosynovitis of finger Current Visit: Yes Status: Chronic Assessment and plan: Patient with well treated with flexor tenosynovitis involving the right fourth finger. Cellulitis seems to have improved but erythema and swelling remaining. As the patient has not had leukocytosis or fever, or any discharge and the site does not appear to be tender, I do not believe he needs any further antibiotics. Recommend keeping the hand elevated and treat symptomatically for pain. If he does develop fever or chills or the swelling and erythema get worse , would recommend another course of antibiotics and follow-up with hand surgery. Internal Medicine - CN: HPI - Data of Consult Patient: known to practice within the last 3 years Requesting Physician: Vickie Johnson MD - Consult Narrative Reason for consult: Swelling and redness involving the right fourth finger History of present illness: Mr. Segura is a 26 year old male patient With history of bipolar disorder, ADHD and depression who is currently admitted to the psychiatric unit for suicidal ideation was found to have swelling and redness involving his right fourth finger. Patient had been recently admitted to the hospital for flexor tenosynovitis involving the same finger and had been treated for it with IV antibiotics and then oral antibiotics. He completed treatment with oral antibiotics ( Augmentin) about 5 days back. He does not have any increase in size or discharge from the site, he does have continued pain. He had been discharged on [place] but present in the psychiatric unit he is not receiving any narcotic medications. No fever reported. His blood work from 01/28 shows normal WBC count. Past Med Surg Social Fam HX - Past Medical History Attestation: Yes The following information was validated with the patient. Source: old records reviewed Medical history: arthritis Psychiatric history: bipolar - Past Surgical History Surgical History: non-contributory - Social History Smoking Status: Current every day smoker Packs per day: 1 ppd Smokeless Tobacco Status: No Alcohol use: occasionally Drug use: marijuana - Family History Mother Hx Family Cardiac Disorders: Yes (htn) All systems: reviewed and no additional remarkable complaints except as stated - Constitutional Constitutional: no chills, no fever(s) - Cardiovascular Cardiovascular ROS IM: as per HPI - Respiratory Respiratory: as per HPI - Gastrointestinal Gastrointestinal: as per HPI - Integumentary Integumentary IM: erythema, rash Internal Medicine - CN: Meds Citalopram Hydrobromide [Celexa] 40 mg PO DAILY 01/16/17 [History] Dextroamphetamine/Amphetamine [Adderall 20 mg Tablet] 20 mg PO BID 01/16/17 [ History] Quetiapine Fumarate [Seroquel] 100 mg PO HS 01/16/17 [History] Allergies No Known Allergies Allergy (Verified 01/28/17 18:50) Internal Medicine - CN: Exam - Constitutional Vitals: Temp Pulse Resp BP Pulse Ox 98.4 F 60 18 117/72 100 01/31/17 08:43 01/31/17 08:43 01/31/17 08:43 01/31/17 08:43 01/29/17 11:39 General appearance IM: Present: cooperative, A&O X 3, answers questions appropriately - Extremities Exam Additional comments: Erythema involving the right fourth finger with swelling. Decreased range of motion at the interphalangeal joints due to swelling. However does not appear to be an active infection with warmth or tenderness to palpation. There is an open ulcer on the lateral surface of the middle digit that has clean base and margins without any discharge. - Expanded Upper Extremities Exam Hand L/R front image: 1 - erythema Internal Medicine - CN: Reslt - Labs CBC & Chem 7: 01/28/17 19:39 01/28/17 19:39 Consult Discharge Plan - Plan [facility] - 02/18/17 2:30 pm (The above appointment is with Jannet Plummer, for mental health and substance abuse counseling. When you come to your first appointment, you will have an orientation to the agency and meet with the counselor. Please bring the following with you to your first visit to the clinic: 1) proof of household income (two consecutive pay stubs, social security award letter, bank statement , statement letter from [facility], child support statement, IRS 1040 or W2 form, or a statement from the person who financially supports you stating they help provide for your basic needs), 2) proof of residency (drivers license, a piece of mail showing your address, a statement from person you live with verifying you live at their address), 3) your social security card, 4) photo ID, 5) your insurance card (if you have commercial insurance you must call to obtain a prior authorization number before you arrive to your first appointment) and 6) if you do not have insurance but have applied for Medicaid, please bring verification you have applied. You may contact the office regularly to check for cancellations that may allow you to be seen sooner. ) Aureliano Beebe, MONICA [Physician Fret Saw Operator] - 02/18/17 4:00 pm (The above appointment is with Aureliano Beebe's associate, Maura Flanagan CNP, at [facility]. This appointment is to establish you with a primary care provider. Your needs for medication and/or Vivitrol will be assessed and treated as indicated as well. Please arrive 15 minutes early to complete paperwork. Please bring your insurance card, photo ID and list of current medications to your first appointment. This is the first available appointment. You may contact the office regularly to check for cancellations that may allow you to be seen sooner. )
[2017-01-31] MEDS: hydrOXYzine pamoate 25 MG CAPSULE PO PRN ×2 (14:29→20:57)
[2017-01-31] MEDS: Ibuprofen 400 MG TABLET PO PRN (14:30)
--- NOTE | 2017-01-31 17:44 | Orthopedic Consult Note ---
Date of Encounter: 01/31/17 Time of Encounter: 17:45 Assessment and Plan (1) Flexor tenosynovitis of finger Current Visit: Yes Status: Chronic Discussed his situation with patient regarding his finger and discussed case with Dr. Zamora. Recommended wound cleansing with Hibiclens, application of 2x2 gauze, and 1-2 layers of gauze wrap with paper tape to the finger. Change twice daily and when saturated. Keep clean and dry. Start Bactrim DS antibiotic BID for 10 days as seems may be infected still or reinfected. Wound cultures from I& D at last admission reviewed - no growth. Discussed pain regimen: Patient to have Motrin, Tylenol as needed for pain control. No narcotics to be provided. Patient to apply ice as needed 20 minutes on, 20mins off for pain and swelling. Occupational therapy consultation. The above communicated to nursing staff on 1A. Thank you for this consultation. History of Present Illness Chief complaint: right finger pain HPI: Mr. Segura is a 26 year old male with right 4th digit swelling and pain. Patient was recently admitted with flexor tenosynovitis which was incised and drained here in the hospital at that time. Patient did not follow up as an outpatient. As he has been readmitted for other medical conditions, we were consulted for his hand. Mr. Segura states that the finger is in fact improved however he finished the Augmentin antibiotic several days ago and has not had medical follow up. he admits that he has had loose bowels since starting the Augmentin. In discussion it appears Mr. Segura has been favoring his right hand as the pain and swelling has been impacting his ability to perform ADLs. He states that the pain has been increasing in this digit over the past several days. As he is currently admitted inpatient to the psychiatric unit he is unable to take narcotics. In discussing this with him he states that he has been taking Motrin with mild relief in pain. He states he has been trying to keep it covered but has noted some weeping drainage. On exam, Mr. Segura is pleasant, alert, and oriented. His right 4th digit displays significant edema, blanching when flexed or extended at all IP joints with restricted ROM. There is an appx 2cm in length and 1cm in height wound with 1x1cm ulceration with overlying slough and pinpoint bleeding at periphery to medial aspect overlying the DIP joint of the right 4th digit. This is exquisitely tender to touch. There is scattered exfoliative scaling of skin from the wound to the dorsal aspect of the right wrist. Nailbeds are intact without disruption. 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 Wrist flexion/extension intact. Discussed his situation with him regarding his finger and discussed case with Dr. Zamora. Recommended wound cleansing with Hibiclens, application of 2x2 gauze , and 1-2 layers of gauze wrap with paper tape to the finger. Change twice daily and when saturated. Keep clean and dry. Start Bactrim DS antibiotic BID for 10 days as seems may be infected still or reinfected. Wound cultures from I& D at last admission reviewed - no growth. Discussed pain regimen: Patient to have Motrin, Tylenol as needed for pain control. No narcotics to be provided. Patient to apply ice as needed 20 minutes on, 20mins off for pain and swelling. Occupational therapy consultation. The above communicated to nursing staff on 1A. Patient to follow up outpatient as needed. If still inpatient through the weekend, would be happy to monitor progress with regard to finger. Thank you for this consultation. Past Med Surg Social Fam HX - Past Medical History Medical history: arthritis Psychiatric history: bipolar - Past Surgical History Surgical History: non-contributory - Social History Smoking Status: Current every day smoker Packs per day: 1 ppd Smokeless Tobacco Status: No Alcohol use: occasionally Drug use: marijuana - Family History Mother Hx Family Cardiac Disorders: Yes (htn) Medications and Allergies Citalopram Hydrobromide [Celexa] 40 mg PO DAILY 01/16/17 [History] Dextroamphetamine/Amphetamine [Adderall 20 mg Tablet] 20 mg PO BID 01/16/17 [ History] Quetiapine Fumarate [Seroquel] 100 mg PO HS 01/16/17 [History] Allergies No Known Allergies Allergy (Verified 01/28/17 18:50) All Systems Reviewed: A 10-system review of systems was performed and is negative for pertinent findings except as documented above in the HPI. Physical Exam - Constitutional Vitals: Temp Pulse Resp BP Pulse Ox 98.4 F 60 18 117/72 100 01/31/17 08:43 01/31/17 08:43 01/31/17 08:43 01/31/17 08:43 01/29/17 11:39 Results - Labs Result Diagrams: 01/28/17 19:39 01/28/17 19:39 Labs: Abnormal lab results Plt Count 408 K/mcL (140-400) H 01/28/17 19:39 MPV 9.3 fL (9.4-12.4) L 01/28/17 19:39 Reactive Lymphocytes Present (Not Present) A 01/28/17 19:39 Salicylates < 5.0 mg/dL (15-30) L 01/28/17 19:39 Urine Opiates Screen Positive ng/mL (Gsrrmw=345) H 01/28/17 19:20 Acetaminophen < 1.0 mcg/mL (10-30) L 01/28/17 19:39 U Marijuana (THC) Screen Positive ng/mL (Cutoff = 50) H 01/28/17 19:20 All other labs normal. Consult Discharge Plan - Plan [facility] - 02/18/17 2:30 pm (The above appointment is with Jannet Plummer, for mental health and substance abuse counseling. When you come to your first appointment, you will have an orientation to the agency and meet with the counselor. Please bring the following with you to your first visit to the clinic: 1) proof of household income (two consecutive pay stubs, social security award letter, bank statement , statement letter from [facility], child support statement, IRS 1040 or W2 form, or a statement from the person who financially supports you stating they help provide for your basic needs), 2) proof of residency (drivers license, a piece of mail showing your address, a statement from person you live with verifying you live at their address), 3) your social security card, 4) photo ID, 5) your insurance card (if you have commercial insurance you must call to obtain a prior authorization number before you arrive to your first appointment) and 6) if you do not have insurance but have applied for Medicaid, please bring verification you have applied. You may contact the office regularly to check for cancellations that may allow you to be seen sooner. ) Aureliano Beebe, PAC [Physician Cash Processing Specialist] - 02/18/17 4:00 pm (The above appointment is with Aureliano Beebe's associate, Maura Flanagan CNP, at [facility]. This appointment is to establish you with a primary care provider. Your needs for medication and/or Vivitrol will be assessed and treated as indicated as well. Please arrive 15 minutes early to complete paperwork. Please bring your insurance card, photo ID and list of current medications to your first appointment. This is the first available appointment. You may contact the office regularly to check for cancellations that may allow you to be seen sooner. )
[2017-01-31] MEDS: Sulfamethoxazole/Trimeth DS 1 EACH TABLET PO SCH (20:57)
[2017-02-01 08:15] LABS: Basophils # 0.1 K/mcL (0.0-0.2); Basophils % 0.9 %; Eosinophils # 0.2 K/mcL (0.0-0.6); Eosinophils % 2.6 %; Hematocrit 41.4 % (37.5-50.1); Immature Granulocytes % 0.6 % (0-4); Lymphocytes % 28.9 %; Mean Corpuscular HGB Conc 33.8 g/dL (31.6-35.5); Mean Corpuscular Hemoglobin 31.5 pg (28.0-33.3); Mean Corpuscular Volume 93.2 fL (83.0-100.0); Mean Platelet Volume 10.3 fL (9.4-12.4); Monocytes # 0.8 K/mcL (0.0-1.3); Monocytes % 11.2 %; Neutrophils # 3.9 K/mcL (1.6-8.9); Platelet Count 311 K/mcL (140-400); Red Blood Count 4.44 M/mcL (4.19-5.50); Red Cell Distribution Width 12.4 % (11.5-14.5); Segmented Neutrophils % 55.8 %
[2017-02-01] MEDS: Sulfamethoxazole/Trimeth DS 1 EACH TABLET PO SCH ×2 (09:08→20:06)
[2017-02-01] MEDS: BuPROPion XL (24 HR) 150 MG TABLET PO SCH (09:08)
[2017-02-01] MEDS: Nicotine 2 MG GUM BC PRN ×6 (09:13→22:21)
--- NOTE | 2017-02-01 09:49 | Psychiatry Progress Note ---
Date of Encounter: 02/01/17 Time of Encounter: 09:15 Subjective Interval history: Patient seen and interviewed. History and physical examination is review. Patient is isolated and withdrawn. He is endorsing some depression. Tolerating medications fairly well. Denying any suicidal ideations but unable to verbalize a safety plan. Patient is worried and anxious about his housing situation. Encouraged to attend groups and participate in activities. Review of Systems Psychiatric: Reports: depression, anhedonia, hopelessness Objective: Exam Patient orientation: Yes Person, Yes Time, Yes Place Level of alertness: Alert Patient appearance: Appropriate, Well Groomed Behavior: withdrawn Psychomotor activity: Normal Eye contact: Maintains Eye Contact Mood description: Depressed Affect description: constricted, dysphoric Speech pattern: Normal rate, Normal rhythm, Normal tone Speech volume: Normal Thought process: Linear, Goal Oriented Thought content: No Suicidal ideation, No Homicidal ideation, No Overt delusions Perceptual disturbances: No Auditory hallucinations, No Visual hallucinations Judgment: Limited Insight: Minimal Results - Vital Signs Vital Signs: Temp Pulse Resp BP Pulse Ox 98.2 F 75 14 128/84 100 01/31/17 21:00 01/31/17 21:00 01/31/17 21:00 01/31/17 21:00 01/29/17 11:39 - Labs Labs: Laboratory Results - last 24 hr 02/01/17 07:27 WBC 7.0 RBC 4.44 Hgb 14.0 Hct 41.4 MCV 93.2 MCH 31.5 MCHC 33.8 RDW 12.4 Plt Count 311 MPV 10.3 Immature Gran % 0.6 Seg Neutrophils % 55.8 Lymphocytes % 28.9 Monocytes % 11.2 Eosinophils % 2.6 Basophils % 0.9 Neutrophils # 3.9 Lymphocytes # 2.0 Monocytes # 0.8 Eosinophils # 0.2 Basophils # 0.1 Assessment and Plan (1) Depression Current visit: Yes Status: Acute Plan: Continue hospitalization, Close observation, Suicide Precautions per unit protocol, Encourage participation in unit milieu, Group Therapy, Monitor sleep, Monitor appetite Risks, benefits, side effects, alternatives discussed w/pt: Yes Patient agreeable to treatment: Yes Qualifiers: Depression Type: unspecified Qualified Code(s): F32.9 - Major depressive disorder, single episode, unspecified Consult Discharge Plan - Plan [facility] - 02/18/17 2:30 pm (The above appointment is with Jannet Plummer, for mental health and substance abuse counseling. When you come to your first appointment, you will have an orientation to the agency and meet with the counselor. Please bring the following with you to your first visit to the clinic: 1) proof of household income (two consecutive pay stubs, social security award letter, bank statement , statement letter from [facility], child support statement, IRS 1040 or W2 form, or a statement from the person who financially supports you stating they help provide for your basic needs), 2) proof of residency (drivers license, a piece of mail showing your address, a statement from person you live with verifying you live at their address), 3) your social security card, 4) photo ID, 5) your insurance card (if you have commercial insurance you must call to obtain a prior authorization number before you arrive to your first appointment) and 6) if you do not have insurance but have applied for Medicaid, please bring verification you have applied. You may contact the office regularly to check for cancellations that may allow you to be seen sooner. ) Aureliano Beebe, MONICA [Physician Media Relations Coordinator] - 02/18/17 4:00 pm (The above appointment is with Aureliano Beebe's associate, Maura Flanagan CNP, at [facility]. This appointment is to establish you with a primary care provider. Your needs for medication and/or Vivitrol will be assessed and treated as indicated as well. Please arrive 15 minutes early to complete paperwork. Please bring your insurance card, photo ID and list of current medications to your first appointment. This is the first available appointment. You may contact the office regularly to check for cancellations that may allow you to be seen sooner. )
[2017-02-01] MEDS: hydrOXYzine pamoate 25 MG CAPSULE PO PRN ×3 (11:19→18:55)
[2017-02-01] MEDS: Ibuprofen 400 MG TABLET PO PRN (11:20)
--- NOTE | 2017-02-01 14:50 | Internal Med Progress Note ---
Date of Encounter: 02/01/17 Time of Encounter: 14:48 - Assessment and plan (1) Flexor tenosynovitis of finger Current Visit: Yes Status: Chronic Assessment and plan: Right fourth finger tenosynovitis/cellulitis Continue Bactrim day 2 Followed by orthopedic surgery, consider IND or further imaging if worse. Continue monitoring as needed (2) Tobacco abuse Current Visit: Yes Status: Acute Assessment and plan: Smoking cessation counseling Continue nicotine gum (3) Depression Current Visit: Yes Status: Acute Assessment and plan: Continue management per psychiatry Qualifiers: Depression Type: unspecified Qualified Code(s): F32.9 - Major depressive disorder, single episode, unspecified (4) Bipolar disorder Current Visit: Yes Status: Acute Qualifiers: Active/Remission status: currently active Current bipolar episode type: depressed Current episode severity: moderate Qualified Code(s): F31.32 - Bipolar disorder, current episode depressed, moderate - Subjective Interval history: The patient is still complaining of some pain in his right fourth finger, appears to be less erythematosus, less tender, no fevers, no abdominal pain, no dysuria, no chest pain or shortness of breath - Constitutional Vitals: Temp Pulse Resp BP Pulse Ox 97.9 F 56 16 122/77 100 02/01/17 09:00 02/01/17 09:00 02/01/17 09:00 02/01/17 09:00 01/29/17 11:39 General appearance: Present: cooperative, A&O X 3, answers questions appropriately - Head Head exam: Present: atraumatic, normocephalic - Eye Eye exam: Present: PERRL, conjuntiva pink, sclera anicteric Pupils: Present: PERRL - Neck Neck exam general surgery: Present: supple, trachea midline. Absent: lymphadenopathy - Respiratory Respiratory exam: Present: CTAB. Absent: accessory muscle use, rales, rhonchi, wheezes - Cardiovascular Cardiovascular exam: Present: RRR, +S1, +S2. Absent: diastolic murmur, gallop, rubs, systolic murmur - GI/Abdominal GI/Abdominal exam: Present: normal bowel sounds, soft, no peritoneal signs. Absent: distended, tenderness - Extremities Exam Extremities exam: Present: tenderness (2cm in length and 1cm in height wound with 1x1cm ulceration with overlying slough and pinpoint bleeding at periphery to medial aspect overlying the DIP joint of the right 4th digit. ), warm, radial pulses palpable and symetrical. Absent: calf tenderness, cyanotic, pedal edema Additional comments: Erythema and tenderness over the entire right fourth finger improving - Neurological Exam Neurological exam: Present: CN II-XII intact, oriented X3, no focal deficits. Absent: pronater drift, facial droop, speech deficit - Skin Skin exam: Present: dry, intact Internal Medicine: Result - Labs CBC & Chem 7: 02/01/17 07:27 01/28/17 19:39 - VTE Reasons for not Prescribing Prophylaxis: Treatment not Indicated - Low risk for VTE Consult Discharge Plan - Plan Referrals: [facility] [Outside] - 02/18/17 2:30 pm (The above appointment is with Jannet Plummer, for mental health and substance abuse counseling. When you come to your first appointment, you will have an orientation to the agency and meet with the counselor. Please bring the following with you to your first visit to the clinic: 1) proof of household income (two consecutive pay stubs, social security award letter, bank statement , statement letter from [facility], child support statement, IRS 1040 or W2 form, or a statement from the person who financially supports you stating they help provide for your basic needs), 2) proof of residency (drivers license, a piece of mail showing your address, a statement from person you live with verifying you live at their address), 3) your social security card, 4) photo ID, 5) your insurance card (if you have commercial insurance you must call to obtain a prior authorization number before you arrive to your first appointment) and 6) if you do not have insurance but have applied for Medicaid, please bring verification you have applied. You may contact the office regularly to check for cancellations that may allow you to be seen sooner. ) Aureliano Beebe PAC [Physician Motel Manager] - 02/18/17 4:00 pm (The above appointment is with Aureliano Beebe's associate, Maura Flanagan CNP, at [facility]. This appointment is to establish you with a primary care provider. Your needs for medication and/or Vivitrol will be assessed and treated as indicated as well. Please arrive 15 minutes early to complete paperwork. Please bring your insurance card, photo ID and list of current medications to your first appointment. This is the first available appointment. You may contact the office regularly to check for cancellations that may allow you to be seen sooner. )
[2017-02-02] MEDS: Sulfamethoxazole/Trimeth DS 1 EACH TABLET PO SCH ×2 (09:31→20:31)
[2017-02-02] MEDS: BuPROPion XL (24 HR) 150 MG TABLET PO SCH (09:31)
[2017-02-02] MEDS: Nicotine 2 MG GUM BC PRN ×5 (09:54→20:36)
--- NOTE | 2017-02-02 10:30 | Psychiatry Progress Note ---
Date of Encounter: 02/02/17 Time of Encounter: 10:30 Subjective Interval history: Patient seen and interviewed. He reported doing okay. Endorsing some anxiety and hopelessness related to the housing situation. Patient is isolated and withdrawn in his room. He is denying any suicidal ideation but unable to verbalize a safety plan. Tolerating medications fairly well. Encouraged to attend groups and work on a safety plan. Review of Systems Psychiatric: Reports: depression, anhedonia, hopelessness Objective: Exam Patient orientation: Yes Person, Yes Time, Yes Place Level of alertness: Alert Patient appearance: Appropriate, Well Groomed Behavior: calm, cooperative Psychomotor activity: Normal Eye contact: Maintains Eye Contact Mood description: Depressed, Anxious Affect description: constricted, dysphoric Speech pattern: Normal rate, Normal rhythm, Normal tone Speech volume: Normal Thought process: Linear, Goal Oriented Thought content: No Suicidal ideation, No Homicidal ideation, No Overt delusions Perceptual disturbances: No Auditory hallucinations, No Visual hallucinations Judgment: Fair Insight: Partial Additional Findings: THE patient is denying suicidal ideations but he is still endorsing hopelessness and is unable to contract for safety off the unit. Results - Vital Signs Vital Signs: Temp Pulse Resp BP Pulse Ox 98.0 F 60 16 121/71 100 02/02/17 09:00 02/02/17 09:00 02/02/17 09:00 02/02/17 09:00 01/29/17 11:39 Assessment and Plan (1) Depression Current visit: Yes Status: Acute Plan: Continue hospitalization, Close observation, Suicide Precautions per unit protocol, Encourage participation in unit milieu, Group Therapy, Monitor sleep, Monitor appetite Additional Plan: Patient is encouraged to work on a safety plan. Patient is told that we will consider discharging him tomorrow so he could sort out his housing situation by then. Risks, benefits, side effects, alternatives discussed w/pt: Yes Patient agreeable to treatment: Yes Qualifiers: Depression Type: unspecified Qualified Code(s): F32.9 - Major depressive disorder, single episode, unspecified Consult Discharge Plan - Plan [facility] - 02/18/17 2:30 pm (The above appointment is with Jannet Plummer, for mental health and substance abuse counseling. When you come to your first appointment, you will have an orientation to the agency and meet with the counselor. Please bring the following with you to your first visit to the clinic: 1) proof of household income (two consecutive pay stubs, social security award letter, bank statement , statement letter from [facility], child support statement, IRS 1040 or W2 form, or a statement from the person who financially supports you stating they help provide for your basic needs), 2) proof of residency (drivers license, a piece of mail showing your address, a statement from person you live with verifying you live at their address), 3) your social security card, 4) photo ID, 5) your insurance card (if you have commercial insurance you must call to obtain a prior authorization number before you arrive to your first appointment) and 6) if you do not have insurance but have applied for Medicaid, please bring verification you have applied. You may contact the office regularly to check for cancellations that may allow you to be seen sooner. ) Aureliano Beebe, PAC [Physician Volleyball Assistant Coach] - 02/18/17 4:00 pm (The above appointment is with Aureliano Beebe's associate, Maura Flanagan CNP, at [facility]. This appointment is to establish you with a primary care provider. Your needs for medication and/or Vivitrol will be assessed and treated as indicated as well. Please arrive 15 minutes early to complete paperwork. Please bring your insurance card, photo ID and list of current medications to your first appointment. This is the first available appointment. You may contact the office regularly to check for cancellations that may allow you to be seen sooner. )
[2017-02-02] MEDS: hydrOXYzine pamoate 25 MG CAPSULE PO PRN ×2 (12:14→18:12)
[2017-02-02] MEDS: Ibuprofen 400 MG TABLET PO PRN (12:19)
--- NOTE | 2017-02-02 12:25 | Internal Med Progress Note ---
Date of Encounter: 02/02/17 Time of Encounter: 12:24 - Assessment and plan (1) Flexor tenosynovitis of finger Current Visit: Yes Status: Chronic Assessment and plan: Right fourth finger tenosynovitis/cellulitis Continue Bactrim day 3 Followed by orthopedic surgery, consider IND or further imaging if worse. Continue monitoring as needed (2) Tobacco abuse Current Visit: Yes Status: Acute Assessment and plan: Smoking cessation counseling Continue nicotine gum (3) Depression Current Visit: Yes Status: Acute Assessment and plan: Continue management per psychiatry Qualifiers: Depression Type: unspecified Qualified Code(s): F32.9 - Major depressive disorder, single episode, unspecified (4) Bipolar disorder Current Visit: Yes Status: Acute Qualifiers: Active/Remission status: currently active Current bipolar episode type: depressed Current episode severity: moderate Qualified Code(s): F31.32 - Bipolar disorder, current episode depressed, moderate - Subjective Interval history: Pain has improved in his right fourth finger, appears to be less erythematosus, less tender, no fevers, no abdominal pain, no dysuria, no chest pain or shortness of breath - Constitutional Vitals: Temp Pulse Resp BP Pulse Ox 98.0 F 60 16 121/71 100 02/02/17 09:00 02/02/17 09:00 02/02/17 09:00 02/02/17 09:00 01/29/17 11:39 General appearance: Present: cooperative, A&O X 3, answers questions appropriately - Head Head exam: Present: atraumatic, normocephalic - Eye Eye exam: Present: PERRL, conjuntiva pink, sclera anicteric Pupils: Present: PERRL - Neck Neck exam general surgery: Present: supple, trachea midline. Absent: lymphadenopathy - Respiratory Respiratory exam: Present: CTAB. Absent: accessory muscle use, rales, rhonchi, wheezes - Cardiovascular Cardiovascular exam: Present: RRR, +S1, +S2. Absent: diastolic murmur, gallop, rubs, systolic murmur - GI/Abdominal GI/Abdominal exam: Present: normal bowel sounds, soft, no peritoneal signs. Absent: distended, tenderness - Extremities Exam Extremities exam: Present: warm, radial pulses palpable and symetrical. Absent : calf tenderness, cyanotic, pedal edema Additional comments: 2cm in length and 1cm in height wound with 1x1cm ulceration with overlying slough and pinpoint bleeding at periphery to medial aspect overlying the DIP joint of the right 4th digit. ), warm, radial pulses palpable and symetrical. - Neurological Exam Neurological exam: Present: CN II-XII intact, oriented X3, no focal deficits. Absent: pronater drift, facial droop, speech deficit - Skin Skin exam: Present: dry, intact Internal Medicine: Result - Labs CBC & Chem 7: 02/01/17 07:27 01/28/17 19:39 - VTE Reasons for not Prescribing Prophylaxis: Treatment not Indicated - Low risk for VTE Consult Discharge Plan - Plan Referrals: [facility] [Outside] - 02/18/17 2:30 pm (The above appointment is with Jannet Plummer, for mental health and substance abuse counseling. When you come to your first appointment, you will have an orientation to the agency and meet with the counselor. Please bring the following with you to your first visit to the clinic: 1) proof of household income (two consecutive pay stubs, social security award letter, bank statement , statement letter from [facility], child support statement, IRS 1040 or W2 form, or a statement from the person who financially supports you stating they help provide for your basic needs), 2) proof of residency (drivers license, a piece of mail showing your address, a statement from person you live with verifying you live at their address), 3) your social security card, 4) photo ID, 5) your insurance card (if you have commercial insurance you must call to obtain a prior authorization number before you arrive to your first appointment) and 6) if you do not have insurance but have applied for Medicaid, please bring verification you have applied. You may contact the office regularly to check for cancellations that may allow you to be seen sooner. ) Aureliano Beebe PAC [Physician Solar Energy Consultant And Designer] - 02/18/17 4:00 pm (The above appointment is with Aureliano Beebe's associate, Maura Flanagan CNP, at [facility]. This appointment is to establish you with a primary care provider. Your needs for medication and/or Vivitrol will be assessed and treated as indicated as well. Please arrive 15 minutes early to complete paperwork. Please bring your insurance card, photo ID and list of current medications to your first appointment. This is the first available appointment. You may contact the office regularly to check for cancellations that may allow you to be seen sooner. )
[2017-02-03] MEDS ORDERED: BuPROPion XL (24 HR) 150 MG TABLET PO SCH (09:00)
[2017-02-03] MEDS: Sulfamethoxazole/Trimeth DS 1 EACH TABLET PO SCH (09:31)
[2017-02-03] MEDS: BuPROPion XL (24 HR) 150 MG TABLET PO SCH (09:34)
[2017-02-03] MEDS: Nicotine 2 MG GUM BC PRN ×2 (09:36→12:09)
[2017-02-03 09:54] VITALS: BP 108/66
--- NOTE | 2017-02-03 13:06 | Discharge Summary ---
Date of Encounter: 02/03/17 Time of Encounter: 13:02 Diagnosis - Discharge Diagnosis (1) Bipolar disorder Status: Acute Qualifiers: Active/Remission status: currently active Current bipolar episode type: depressed Current episode severity: moderate Qualified Code(s): F31.32 - Bipolar disorder, current episode depressed, moderate Medications - Discharge Medications Prescriptions: BuPROPion XL (24 HR) [Wellbutrin Xl] 300 mg PO DAILY #60 tab.er.24h Quetiapine Fumarate [Seroquel] 100 mg PO HS #30 tablet BuPROPion XL (24 HR) [Wellbutrin Xl] 300 mg PO DAILY #60 tab.er.24h 02/03/17 [Rx ] Quetiapine Fumarate [Seroquel] 100 mg PO HS #30 tablet 02/03/17 [Rx] Sulfamethoxazole/Trimeth DS [Bactrim Ds] 2 each PO BID tablet 02/03/17 [Rx] Allergies No Known Allergies Allergy (Verified 01/28/17 18:50) Provider Date of admission: 02/01/17 09:32 Primary care physician: PCP NO Discharging clinician: Josse Kelsey Assessment and Plan - Patient/Caregiver Discharge Instructions Activity: resume usual activities as tolerated Diet: regular diet - Follow up Plan Follow up with: [facility] [Outside] - 02/13/17 10:30 am (The above appointment is with Babita Del Rosario, counselor at [facility]. Your first appointment will be very thorough and the total appointment time will take between two and three hours. You will be completing paperwork, meeting with a counselor and a nurse, and developing a treatment plan. You will receive follow- up appointments for on-going services , which could include counseling and community support. Please bring the following with you to your first visit to the clinic: 1) proof of household income (two consecutive pay stubs, social security award letter, bank statement , statement letter from [facility], child support statement, IRS 1040 or W2 form, or a statement from the person who financially supports you stating they help provide for your basic needs), 2) proof of residency (drivers license, a piece of mail showing your address, a statement from person you live with verifying you live at their address), 3) your social security number, and 4) your insurance card (if you have commercial insurance you must call to obtain a prior authorization number before you arrive to your first appointment). If you do not bring these items, you will not be seen.) Aureliano Beebe PAC [Physician Oil Painter] - 02/18/17 4:00 pm (The above appointment is with Aureliano Beebe's associate, Maura Flanagan CNP, at [facility]. This appointment is to establish you with a primary care provider. Your needs for medication and/or Vivitrol will be assessed and treated as indicated as well. Please arrive 15 minutes early to complete paperwork. Please bring your insurance card, photo ID and list of current medications to your first appointment. This is the first available appointment. You may contact the office regularly to check for cancellations that may allow you to be seen sooner. ) Functional capacity at discharge: independent ambulation Overall status at discharge: Stable Disposition: Home, Self-Care Hospital Course Hospital course: Mr. Segura is a 26 year old male admitted for suicidal ideation and running out of medication. For details of the admission please see H&P On the unit patient medication were adjusted, Celexa was discontinued, started on Wellbutrin and Seroquel. Patient reported improvement in energy level, less depressed, participated in activities and denied suicidal ideation. He was advised and educated about drug use lack THC and compliance with treatment. On discharge she was medically stable denies suicidal ideation. His discharge plans were completed by social work. - Time Spent with Patient Total time spent providing and/or coordinating discharge services: Greater than 30 minutes Quality - Multiple Antipsychotics Patient discharged on 2 or more antipsychotic medications: No Procedures - Procedures Procedures: Medication Management, Crisis Stabilization, Supportive Therapy, Group Therapy, Psychoeducational Therapy Mental Status Exam - Mental Status Exam Patient orientation: Yes Person, Yes Time, Yes Place Level of alertness: Alert Patient appearance: Appropriate, Well Groomed Behavior: calm, cooperative Psychomotor activity: Normal Eye contact: Maintains Eye Contact Mood description: Euthymic/stable Affect description: congruent with mood, full range Speech pattern: Normal rate, Normal rhythm, Normal tone Speech Volume: Normal Thought process: Linear, Goal Oriented Thought Content: No Suicidal ideation, No Homicidal ideation, No Overt delusions Perceptual Disturbances: No Auditory hallucinations, No Visual hallucinations Judgment: Limited Insight: Partial
--- NOTE | 2017-02-03 14:58 | Orthopedics Progress Note ---
Date of Encounter: 02/03/17 Time of Encounter: 12:45 - Assessment and Plan (1) Flexor tenosynovitis of finger Current Visit: Yes Status: Chronic Continue wound care. Begin wet to dry dressings after washing incision with soap /water TID. Continue to ice and elevate for the swelling. Continue finger ROM. Continue bactrim PO and will need to continue this upon DC. Will follow up with Destinee Nowak PA-C in [facility] office on 02/12/17 at 11:45am. Subjective Principal diagnosis: Right ring finger infection Interval history: Patient states he is doing better today and has been working on motion of fingers. Denies any new concerns. States tip of finger is numb and tingling. No active drainage from the wound. Objective Vital signs: Vital Signs Temp Pulse Resp BP 02/03/17 09:00 97.8 F 67 16 108/66 02/02/17 20:48 98.0 F 85 16 99/61 Intake and Output 02/02/17 02/03/17 02/03/17 23:59 07:59 15:59 Other: Meal Dinner Lunch Percent of Meal Consumed 100% 100% Incision: swollen (Right ring finger continues to be swollen with improving blanchable erythema. Incision to ulnar side of finger intact with distal portion eschar. no active drainage. mild tenderness to palpation of the finger. Almost full AROM of finger. brisk cap refill) - Labs CBC & BMP: 02/01/17 07:27 01/28/17 19:39 Labs: Abnormal lab results Reactive Lymphocytes Present (Not Present) A 01/28/17 19:39 Salicylates < 5.0 mg/dL (15-30) L 01/28/17 19:39 Urine Opiates Screen Positive ng/mL (Ndhewu=140) H 01/28/17 19:20 Acetaminophen < 1.0 mcg/mL (10-30) L 01/28/17 19:39 U Marijuana (THC) Screen Positive ng/mL (Cutoff = 50) H 01/28/17 19:20 - VTE Reasons for not Prescribing Prophylaxis: Treatment not Indicated - Low risk for VTE Consult Discharge Plan - Plan Instructions: Bipolar Disorder (DC), Depression (DC) Referrals: [facility] [Outside] - 02/13/17 10:30 am (The above appointment is with Babita Del Rosario, counselor at [facility]. Your first appointment will be very thorough and the total appointment time will take between two and three hours. You will be completing paperwork, meeting with a counselor and a nurse, and developing a treatment plan. You will receive follow- up appointments for on-going services , which could include counseling and community support. Please bring the following with you to your first visit to the clinic: 1) proof of household income (two consecutive pay stubs, social security award letter, bank statement , statement letter from [employer], child support statement, IRS 1040 or W2 form, or a statement from the person who financially supports you stating they help provide for your basic needs), 2) proof of residency (drivers license, a piece of mail showing your address, a statement from person you live with verifying you live at their address), 3) your social security number, and 4) your insurance card (if you have commercial insurance you must call to obtain a prior authorization number before you arrive to your first appointment). If you do not bring these items, you will not be seen.) Aureliano Beebe, MONICA [Physician Direct Casting Operator] - 02/18/17 4:00 pm (The above appointment is with Aureliano Beebe's associate, Maura Flanagan CNP, at [facility]. This appointment is to establish you with a primary care provider. Your needs for medication and/or Vivitrol will be assessed and treated as indicated as well. Please arrive 15 minutes early to complete paperwork. Please bring your insurance card, photo ID and list of current medications to your first appointment. This is the first available appointment. You may contact the office regularly to check for cancellations that may allow you to be seen sooner. ) Prescriptions: BuPROPion XL (24 HR) [Wellbutrin Xl] 300 mg PO DAILY #60 tab.er.24h Quetiapine Fumarate [Seroquel] 100 mg PO HS #30 tablet
== END 2017-02-03 15:05 | disposition home or self-care (01) | DRG 753 ==
LOC: 1ANU 18:43 → EMEROO 18:43 → SUATTDRO 01-29 15:24 → 1ANU 01-29 16:29 → SUATTDRO 02-01 09:32
PROVIDERS: ADMIT Psychiatry & Neurology Psychiatry; ATTEND Psychiatry & Neurology Psychiatry

== ENCOUNTER 2017-02-05 14:09 | Inpatient (IN) ==
[2017-02-05] MEDS ORDERED: *HR* FentaNYL (PF) 100 MCG/2 ML VIAL IVP ONE (15:29)
--- NOTE | 2017-02-05 15:29 | Emergency Department Note ---
Disposition Clinical Impression: Flexor tenosynovitis of finger, Abscess Cellulitis Qualifiers: Site of cellulitis: extremity Site of cellulitis of extremity: upper extremity Laterality: right Qualified Code(s): L03.113 - Cellulitis of right upper limb Disposition: Admitted As Inpatient Condition: Good Time of Disposition: 19:05 General Adult HPI - General Chief complaint: ED Extremity Problem,Nontraumatic Stated complaint: finger swelling Time Seen by Provider: 02/05/17 15:00 Source: patient Mode of arrival: ambulatory Limitations: no limitations Nursing Notes Reviewed: Yes Vital Signs Reviewed: Yes - History of Present Illness HPI Narrative: Several week history of flexor tenosynovitis to the right fourth digit. Has had IV antibiotics and was discharged on by mouth antibiotics. He has failed outpatient therapy for this. Reporting an increase in the swelling and erythema. Also reporting pain to this digit. Pain Scale: 9 - Related Data Home Medications Medication Instructions Recorded Confirmed Citalopram Hydrobromide 40 mg PO DAILY 02/05/17 02/05/17 [Citalopram HBr] Dextroamphetamine/Amphetamine 20 mg PO BID 02/05/17 02/05/17 [Adderall 20 mg Tablet] Previous Rx's Medication Instructions Recorded BuPROPion XL (24 HR) [Wellbutrin 300 mg PO DAILY #60 tab.er.24h 02/03/17 Xl] Quetiapine Fumarate [Seroquel] 100 mg PO HS #30 tablet 02/03/17 Allergies Allergy/AdvReac Type Severity Reaction Status Date / Time No Known Allergies Allergy Verified 01/28/17 18:50 Review of Systems: No fevers or chills. No shortness of breath or chest pain. No abdominal pain nausea vomiting or diarrhea. No edema to his lower extremities. Is reporting pain, swelling, infection to his fourth digit of his right hand. Denies any pain in his wrist. Denies any pain in his hand. Denies any headaches or visual disturbances. Denies any SI or HI at this time. All systems ED: reviewed and negative except as stated. Past Medical History - Past Medical History Attestation: Yes The following information was validated with the patient. Medical history: Reports: arthritis Surgical history: Reports: non-contributory Psychiatric history: Reports: anxiety, bipolar, depression - Social History Smoking Status: Current every day smoker Smokeless Tobacco Status: No Alcohol use: Reports: occasionally Drug use: Reports: marijuana Physical Exam - General Limitations: no limitations General appearance: alert, in no apparent distress - Head Head exam: atraumatic, normocephalic, normal inspection - Eye Eye exam: Present: normal appearance, PERRL, EOMI - ENT ENT exam: normal exam, normal oropharynx, mucous membranes moist - Neck Neck exam: Present: normal inspection, full ROM, trachea midline - Chest Chest inspection: Present: normal inspection, symmetric chest wall rise - Respiratory Respiratory exam: Present: normal lung sounds bilaterally. Absent: respiratory distress - Cardiovascular Cardiovascular exam: Present: regular rate, normal rhythm, normal heart sounds - Abdominal Exam Abdominal exam: Present: soft, Non-Tender, normal bowel sounds. Absent: tenderness, distention, guarding, rebound, rigidity, organomegaly - Expanded Upper Extremity Exam Shoulder exam: Present: normal inspection, full ROM Arm exam: Present: normal inspection, full ROM Elbow exam: Present: normal inspection, full ROM Forearm/Wrist exam: Present: normal inspection, full ROM Hand exam: Present: tenderness (To palpation of right fourth digit), swelling ( entirety of right fourth digit), erythema (Right fourth digit) Hand L/R back image: 1 - Erythema and warmth cellulitic appearing. 2 - Ulcerated area. Vascular exam: Normal: capillary refill, radial pulse - Expanded Lower Extremity Exam Hip/Pelvis exam: Present: normal inspection, full ROM Upper leg exam: Present: normal inspection, full ROM Knee exam: Present: normal inspection, full ROM Lower leg exam: Present: normal inspection, full ROM Ankle exam: Present: normal inspection, full ROM Foot/toe exam: Present: normal inspection, full ROM Neurovascular/Tendon exam: Absent: motor deficit, sensory deficit, tendon deficit Course Course Narrative: Male patient with a psychiatric history presenting to the emergency department complaining of swelling to his right fourth digit. He was admitted a week ago but then went and spent some time on 1a after his medical admission. He states that he was admitted here approximately a week ago and started on IV antibiotics. He states that his finger started with an ingrown fingernail and is just gotten worse since then. He states that after he was discharged he has been taking his by mouth antibiotics however the finger has gotten more red and more swollen and more painful. There is an area of induration to the distal and lateral aspect of his fourth digit. There is erythema and swelling to his whole right fourth digit. There is an area that appears ulcerated around the DIP joint to the lateral aspect. After reading the note it appears as if this was an unroofed blister on his recent admission. There is no discharge at this time. This is not appear to extend into his hand. I believe this is a flexor tenosynovitis. He has had pain whenever he flexes his finger. He denies any fevers at home. He denies any nausea vomiting or diarrhea. I have spoken with Dr. Zamora who is agreeable with us admitting the patient to the hospitalist for IV antibiotics and he states he will see the patient while he is here. We have started patient on pain medication while he is here. We have also given him medication for his pain. We will admit him to the hospital. - Reevaluation(s) Reevaluation #1: Pharmacy staff is trying seeing that the patient told them that he has not been taking any of his oral antibiotics since he was discharged. He states that these were not called and said he did not get them. This is contradictory to what he initially told me that he had finished his course of antibiotics 2 days ago. Time: 16:59 - Consultations Consultation #1: Dr Zamora is requesting that we admit patient to the hospitalist. He is requesting IV vancomycin. He states he will see the patient while he is here. Time: 16:38 Consultation #2: Dr Bain accepted patient in stable condition. Time: 16:58 Vital Signs Temperature 97.6 F 02/05/17 14:23 Pulse Rate 96 02/05/17 14:23 Respiratory Rate 16 02/05/17 14:23 Blood Pressure 132/88 02/05/17 14:23 O2 Sat by Pulse Oximetry 98 02/05/17 14:23 Temperature 97.9 F 02/05/17 23:51 Pulse Rate 78 02/05/17 23:51 Respiratory Rate 17 02/05/17 23:51 Blood Pressure 118/72 02/05/17 23:51 O2 Sat by Pulse Oximetry 95 02/05/17 23:51 Oxygen Delivery Oxygen Delivery Room Air Medical Decision Making - Medical Records Medical records reviewed: Yes I reviewed the patient's medical records. - Lab Data Lab results reviewed: Yes I reviewed the patient's lab results. Result diagrams: 02/05/17 15:58 02/05/17 15:58 Lab Results 02/05/17 02/05/17 Range/Units 15:58 15:58 WBC 6.6 (4.3-11.1) K/mcL RBC 4.43 (4.19-5.50) M/mcL Hgb 13.5 (12.9-16.9) g/dL Hct 41.0 (37.5-50.1) % MCV 92.6 (83.0-100.0) fL MCH 30.5 (28.0-33.3) pg MCHC 32.9 (31.6-35.5) g/dL RDW 12.9 (11.5-14.5) % Plt Count 347 (140-400) K/mcL MPV 10.1 (9.4-12.4) fL Immature Gran % 0.3 (0-4) % Seg Neutrophils % 59.1 % Lymphocytes % 24.3 % Monocytes % 12.8 % Eosinophils % 2.6 % Basophils % 0.9 % Neutrophils # 3.9 (1.6-8.9) K/mcL Lymphocytes # 1.6 (0.6-4.6) K/mcL Monocytes # 0.8 (0.0-1.3) K/mcL Eosinophils # 0.2 (0.0-0.6) K/mcL Basophils # 0.1 (0.0-0.2) K/mcL Sodium 138 (136-145) mEq/L Potassium 3.8 (3.5-4.5) mEq/L Chloride 107 (98-109) mEq/L Carbon Dioxide 22 (19-29) mEq/L BUN 11 (8-26) mg/dL Creatinine 0.82 (0.72-1.25) mg/dL Est GFR ( Amer) > 60 (> 60) Est GFR (Non-Af Amer) > 60 (> 60) BUN/Creatinine Ratio 13 (6-26) Glucose 83 (70-99) mg/dL Calculated Osmolality 285 (280-300) Calcium 9.2 (8.6-10.8) mg/dL - Radiology Data Radiology results reviewed: Yes I reviewed the patient's radiology results. Attestation Statement - Attestation Attestation: I personally interviewed and examined this patient and my medical decision- making was reviewed with the ED Resident Physician, Dr. Robb I agree with the documented findings, disposition and treatment plan as described except to the extent set forth below. Patient is a 26-year-old white male who presents to the emergency department with worsening swelling pain and redness to his right fourth digit. Patient has been hospitalized, discharged actually one week ago from 's service for flexor tenosynovitis. Patient had I&D performed and was receiving IV antibiotics and was discharged on Augmentin. According to the records he was followed up as an outpatient he states changed to Bactrim which she been taking for 3 days prior to his most recent follow-up appointment to 48 hours ago. He was again seen in the office and encouraged to continue Bactrim and was told that a prescription would be called in for him. Patient states he has not had any antibiotics for the last 48 hours and there must been a problem with calling in the antibiotic. Over the last 48 hours he has had significant worsening of his soft tissue swelling of the entire fourth finger with pain with passive extension of the finger tenderness along the flexor sheath. Patient has no spontaneous drainage from his postop site. His cultures from that I&D were negative. Patient denies any fevers or chills, seems to have a slight bit of redness extending into the dorsum of the right hand. Patient's exam findings I agree with as documented. Patient came with an IV in place we will go ahead and initiate antibiotics with vancomycin and Rocephin here and obtain baseline labs. Patient will be treated for pain and we will contact Dr. Ureña. Discussed with Dr. Garcia and apparently this patient has horrible issues with compliance and has not been taking his medications or do her following up in the office. They agreed with antibiotics and they will consult on the patient for surgical evaluation. Discussed the case with the hospitalist who accepted the patient for admission for medical management. Patient remained hemodynamically stable and comfortable while in the ED.
[2017-02-05] MEDS ORDERED: Vancomycin 1,250 MG in D5% in Water 250 ML IVPB ONE (15:44)
[2017-02-05] MEDS ORDERED: Ketorolac 15 MG/ML VIAL IVP ONE (15:47)
[2017-02-05 16:24] LABS: Basophils # 0.1 K/mcL (0.0-0.2); Basophils % 0.9 %; Eosinophils # 0.2 K/mcL (0.0-0.6); Eosinophils % 2.6 %; Hemoglobin 13.5 g/dL (12.9-16.9); Immature Granulocytes % 0.3 % (0-4); Lymphocytes # 1.6 K/mcL (0.6-4.6); Lymphocytes % 24.3 %; Mean Corpuscular HGB Conc 32.9 g/dL (31.6-35.5); Mean Corpuscular Hemoglobin 30.5 pg (28.0-33.3); Mean Corpuscular Volume 92.6 fL (83.0-100.0); Mean Platelet Volume 10.1 fL (9.4-12.4); Monocytes # 0.8 K/mcL (0.0-1.3); Monocytes % 12.8 %; Neutrophils # 3.9 K/mcL (1.6-8.9); Platelet Count 347 K/mcL (140-400); Red Blood Count 4.43 M/mcL (4.19-5.50); Red Cell Distribution Width 12.9 % (11.5-14.5); Segmented Neutrophils % 59.1 %
[2017-02-05 16:40] LABS: BUN/Creatinine Ratio 13 (6-26); Blood Urea Nitrogen 11 mg/dL (8-26); Calcium 9.2 mg/dL (8.6-10.8); Carbon Dioxide 22 mEq/L (19-29); Chloride 107 mEq/L (98-109); Glucose 83 mg/dL (70-99); Osmolality,Calculated 285 (280-300); Potassium 3.8 mEq/L (3.5-4.5); Sodium 138 mEq/L (136-145); eGFR For African Americans > 60 (> 60); eGFR For Non-African Americans > 60 (> 60)
[2017-02-05] MEDS ORDERED: *HR* OxyCODONE/APAP 5/325 TABLET PO ONE (16:59)
--- NOTE | 2017-02-05 18:06 | Orthopedic Consult Note ---
Date of Encounter: 02/05/17 Time of Encounter: 17:40 Assessment and Plan (1) Cellulitis of finger of right hand Current Visit: Yes Status: Acute Worsening cellulitis to right ring finger. Patient has been noncompliant on outpatient basis with treatment thus far. Plan for right ring finger I&D in the OR tomorrow by Dr. Zamora. Will need to be NPO after midnight tonight. Continue IV abx per hospitalist. Continue to elevate right hand and finger motion as tolerated. History of Present Illness Chief complaint: Right ring finger infection HPI: Mr. Segura is a 26 year old male who presented to the ER today because he states that he has increased pain in his hand compared to the last couple of days and states that his antibiotic did not get called in. We have been following this patient for 3 weeks now. He was originally admitted on 01/16/17 for the finger infection and bedside I&D was performed during that hospital stay and was given IV vancomycin. His symptoms improved and he was discharged on augmentin. Patient now showed to his follow up appt in the [facility] office on . We were not able to get ahold of him to reschedule this appt. He was readmitted on 01/28/17 to 1A for suicidal ideations. We were consulted on and recommended he be started on oral bactrim at that time as he was not allowed to have an IV for abx while staying on 1A. He continued to show improvement and was discharged on 02/03/17 with a script for bactrim but patient states this was not at his pharmacy when he went to pick it up so he has not had any abx for the past 48 hrs. Patient states he has been doing his local wound care washing with soap/water 2-3xday as instructed and working on motion of finger. States he does have increased numbness to finger and pain is now radiating to hand. Denies any new injuries. Denies any drainage from wound. Denies any fevers, SOB, chest pain at this time. Past Med Surg Social Fam HX - Past Medical History Medical history: arthritis Psychiatric history: anxiety, bipolar, depression - Past Surgical History Surgical History: non-contributory - Social History Smoking Status: Current every day smoker Smokeless Tobacco Status: No Alcohol use: occasionally Drug use: marijuana - Family History Mother Hx Family Cardiac Disorders: Yes (htn) Medications and Allergies BuPROPion XL (24 HR) [Wellbutrin Xl] 300 mg PO DAILY #60 tab.er.24h 02/03/17 [Rx ] Quetiapine Fumarate [Seroquel] 100 mg PO HS #30 tablet 02/03/17 [Rx] Citalopram Hydrobromide [Citalopram HBr] 40 mg PO DAILY 02/05/17 [History] Dextroamphetamine/Amphetamine [Adderall 20 mg Tablet] 20 mg PO BID 02/05/17 [ History] Allergies No Known Allergies Allergy (Verified 01/28/17 18:50) All Systems Reviewed: A 10-system review of systems was performed and is negative for pertinent findings except as documented above in the HPI. - Constitutional Constitutional: as per HPI - Cardiovascular Cardiovascular: as per HPI - Respiratory Respiratory: as per HPI - Musculoskeletal Musculoskeletal: as per HPI Physical Exam - Constitutional Vitals: Temp Pulse Resp BP Pulse Ox 97.6 F 96 16 132/88 98 02/05/17 14:23 02/05/17 14:23 02/05/17 14:23 02/05/17 14:23 02/05/17 14:23 - Wrist & Hand right Location of pain: ring finger (moderate erythema and swelling to ring finger worse around middle and distal phalanx and does not extend into hand. closed wound with eschar noted to ulnar side of finger at DIPJ with no active drainage. Mild skin sloughing noted to dorsal hand. Mild tenderness to palpation along flexor tendon not out of proportion to expectation. almost full AROM of finger with no increased pain upon PROM. brisk cap refill, NV intact) Results - Labs Result Diagrams: 02/05/17 15:58 02/05/17 15:58 Labs: H & H 02/05/17 Range/Units 15:58 Hgb 13.5 (12.9-16.9) g/dL Hct 41.0 (37.5-50.1) % All other labs normal. - Diagnostic results Wrist/Hand x-ray: report reviewed, image reviewed (no acute bony abnormalities including no evidence on osteomyelitis ) Consult Discharge Plan - Plan Referrals: Aureliano Beebe, PAC [Primary Care Provider] - - Attending Attestation Case and plan of care discussed with supervising physician who was available for all aspects of care.
[2017-02-05] MEDS ORDERED: Naloxone 0.4 MG/ML INJ IVP PRN (19:26)
--- NOTE | 2017-02-05 19:55 | Internal Med History&Physical ---
Date of Encounter: 02/05/17 Time of Encounter: 19:50 Assessment and Plan (1) Cellulitis of finger of right hand Current visit: Yes Status: Acute Right 4th digit swelling, erythema, and pain. Patient is able to flex and extend. Patient was previously admitted for same, and given I&D by Dr. Zamora, discharged on Augmentin. Unclear if patient was compliant with outpatient treatment. Vancomycin and zosyn IVPB [place] and morphine PRN for pain, Narcan PRN for respiratory depression NPO after midnight for planned I&D tomorrow. (2) Tobacco abuse Current visit: No Status: Acute Patient smokes 1/2 PPD. Discussed smoking cessation and encouraged quitting. Nicotine patch and smoking cessation education ordered. (3) Anxiety Current visit: Yes Status: Acute Patient reporting feeling anxious and appears fidgety and uncomfortable. Xanax 0.5mg PO BID PRN. (4) Bipolar disorder Current visit: Yes Status: Chronic Continue home doses of Wellbutrin and Seroquel. Qualifiers: Active/Remission status: currently active Current bipolar episode type: depressed Current episode severity: moderate Qualified Code(s): F31.32 - Bipolar disorder, current episode depressed, moderate (5) DVT prophylaxis Current visit: Yes Status: Acute Start lovenox 40mg SQ after surgery. Internal Medicine - H&P: HPI Chief complaint: right 4th finger pain, swelling and redness Admitted From: Emergency Dept Plans for Post Hospital Care: Home History of present illness: Mr. Segura is a 26 year old male presented to the ER today with complaints of right fourth finger pain, swelling and redness. Patient was previously admitted with cellulitis and flexor tenosynovitis in his right fourth digit and had an I&D by Dr. Zamora and was discharged on Augmentin. It is unclear whether the patient was compliant with outpatient treatment with oral antibiotics. Patient reports his pain and swelling has been getting worse the last few days she has right came to the ER. He denies any fever, chills, sweats. He denies any nausea, vomiting, abdominal pain or diarrhea. Evaluation in the emergency department revealed normal white blood cell count is 6.6. Finger x-ray showed nonspecific diffuse soft tissue swelling of the fourth digit, in no acute osseous abnormality. He was consulted, and plans to take the patient for an I& D tomorrow and requests patient be on IV vancomycin. On exam, patient alert and oriented, reporting he is anxious about his finger and the procedure. Heart has regular rate and rhythm, lungs are clear bilaterally to auscultation. Right fourth digit has erythema and swelling of the entire digit with oh bilateral area of necrosis tissue on the distal interphalangeal joint. Past Med Surg Social Fam HX - Past Medical History Medical history: arthritis Psychiatric history: anxiety, bipolar, depression - Past Surgical History Surgical History: orthopedic, other (ankle fusion) - Social History Smoking Status: Current every day smoker Packs per day: 1/2 Smokeless Tobacco Status: No Alcohol use: occasionally Drug use: marijuana - Family History Mother Hx Family Cardiac Disorders: Yes (htn) Father Living Status: Age at : 42 Hx Family Cardiac Disorders: Yes Internal Medicine - H&P: Meds BuPROPion XL (24 HR) [Wellbutrin Xl] 300 mg PO DAILY #60 tab.er.24h 02/03/17 [Rx ] Quetiapine Fumarate [Seroquel] 100 mg PO HS #30 tablet 02/03/17 [Rx] Citalopram Hydrobromide [Citalopram HBr] 40 mg PO DAILY 02/05/17 [History] Dextroamphetamine/Amphetamine [Adderall 20 mg Tablet] 20 mg PO BID 02/05/17 [ History] Allergies No Known Allergies Allergy (Verified 01/28/17 18:50) All Systems PM: A 10-system review of systems was performed and is negative for pertinent findings except as documented above in the HPI. - Constitutional Constitutional: no chills, no fever(s), no night sweats - EENT Eyes: no change in vision, no discharge, no pain, no photophobia Ears: no ear discharge, no ear pain, no tinnitus Nose, mouth and throat: no dysphagia, no nasal discharge, no neck pain, no sore throat - Cardiovascular Cardiovascular ROS IM: no chest pain, no diaphoresis, no dyspnea, no lightheadedness, no palpitations, no syncope - Respiratory Respiratory: no cough, no dyspnea, no wheezing, no excessive phlegm production - Gastrointestinal Gastrointestinal: no abdominal pain, no diarrhea, no hematemesis, no hematochezia, no melena, no nausea, no vomiting - Musculoskeletal Musculoskeletal ROS IM: no numbness, no tingling Additional comments: pain in right 4th finger. - Integumentary Integumentary IM: erythema (right 4th finger), non-healing lesions (right 4th finger), no rash, no unusual bruising - Neurological Neurological ROS: no confusion, no convulsions, no focal weakness, no numbness, no tingling, no tremor(s) - Hematologic/Lymphatic Hematologic/Lymphatic: no easy bruising - Constitutional Vitals: Temp Pulse Resp BP Pulse Ox 97.6 F 82 14 147/72 98 02/05/17 14:23 02/05/17 18:00 02/05/17 19:05 02/05/17 19:05 02/05/17 14:23 General appearance: Present: A&O X 3, pleasant, no acute distress - Head Head exam: Present: atraumatic, normocephalic - Eye Eye exam: Present: PERRL, conjuntiva pink, sclera anicteric Pupils: Present: PERRL - Neck Neck exam general surgery: Present: supple, trachea midline. Absent: lymphadenopathy - Respiratory Respiratory exam: Present: CTAB. Absent: accessory muscle use, rales, rhonchi, wheezes - Cardiovascular Cardiovascular exam: Present: RRR, +S1, +S2. Absent: diastolic murmur, gallop, rubs, systolic murmur - GI/Abdominal GI/Abdominal exam: Present: normal bowel sounds, soft, no peritoneal signs. Absent: distended, tenderness - Extremities Exam Extremities exam: Present: warm, radial pulses palpable and symetrical. Absent : calf tenderness, cyanotic, pedal edema - Expanded Upper Extremities Exam Hand wrist exam: Present: erythema (right 4th digit), swelling (right 4th digit) , tenderness (right 4th digit) - Neurological Exam Neurological exam: Present: CN II-XII intact, oriented X3, no focal deficits. Absent: facial droop, speech deficit - Skin Skin exam: Present: dry, intact Internal Med - H&P Results - Labs CBC & Chem 7: 02/05/17 15:58 02/05/17 15:58 Labs: All Lab Results (24 Hours) 02/05/17 02/05/17 Range/Units 15:58 15:58 WBC 6.6 (4.3-11.1) K/mcL RBC 4.43 (4.19-5.50) M/mcL Hgb 13.5 (12.9-16.9) g/dL Hct 41.0 (37.5-50.1) % MCV 92.6 (83.0-100.0) fL MCH 30.5 (28.0-33.3) pg MCHC 32.9 (31.6-35.5) g/dL RDW 12.9 (11.5-14.5) % Plt Count 347 (140-400) K/mcL MPV 10.1 (9.4-12.4) fL Immature Gran % 0.3 (0-4) % Seg Neutrophils % 59.1 % Lymphocytes % 24.3 % Monocytes % 12.8 % Eosinophils % 2.6 % Basophils % 0.9 % Neutrophils # 3.9 (1.6-8.9) K/mcL Lymphocytes # 1.6 (0.6-4.6) K/mcL Monocytes # 0.8 (0.0-1.3) K/mcL Eosinophils # 0.2 (0.0-0.6) K/mcL Basophils # 0.1 (0.0-0.2) K/mcL Sodium 138 (136-145) mEq/L Potassium 3.8 (3.5-4.5) mEq/L Chloride 107 (98-109) mEq/L Carbon Dioxide 22 (19-29) mEq/L BUN 11 (8-26) mg/dL Creatinine 0.82 (0.72-1.25) mg/dL Est GFR ( Amer) > 60 (> 60) Est GFR (Non-Af Amer) > 60 (> 60) BUN/Creatinine Ratio 13 (6-26) Glucose 83 (70-99) mg/dL Calculated Osmolality 285 (280-300) Calcium 9.2 (8.6-10.8) mg/dL - Diagnostic Studies Other Images Additional comments: Finger X-Ray 02/05/17 15:01 IMPRESSION: 1. Nonspecific diffuse soft tissue swelling of the 4th digit. 2. No acute osseous abnormality. D/ / Luiz Bingham MD / Luiz Bingham MD Interpreting Provider: Luiz Bingham MD
[2017-02-05] MEDS: ALPRAZolam 0.5 MG TABLET PO PRN (20:27)
[2017-02-05] MEDS: *HR* Morphine 2 MG/ML SYRINGE IVP PRN (20:27)
[2017-02-05] MEDS: Nicotine 14 MG PATCH.TD24 TD SCH (20:27)
[2017-02-05] MEDS: *HR* HYDROcodone/Acet 5/325 mg TABLET PO PRN (22:12)
[2017-02-06] MEDS: Piperacillin/Tazobactam 3.375 GM in D5% in Water (Mini-Bag+) 100 ML IVPB SCH ×3 (00:12→23:44)
[2017-02-06] MEDS: *HR* Morphine 2 MG/ML SYRINGE IVP PRN ×6 (00:51→22:46)
[2017-02-06] MEDS: ALPRAZolam 0.5 MG TABLET PO PRN ×3 (01:11→18:05)
[2017-02-06] MEDS: *HR* HYDROcodone/Acet 5/325 mg TABLET PO PRN ×3 (02:26→23:58)
[2017-02-06 03:28] LABS: Basophils # 0.1 K/mcL (0.0-0.2); Basophils % 1.1 %; Eosinophils # 0.4 K/mcL (0.0-0.6); Hematocrit 39.1 % (37.5-50.1); Hemoglobin 13.1 g/dL (12.9-16.9); Immature Granulocytes % 0.2 % (0-4); Lymphocytes # 2.2 K/mcL (0.6-4.6); Mean Corpuscular HGB Conc 33.5 g/dL (31.6-35.5); Mean Corpuscular Hemoglobin 31.2 pg (28.0-33.3); Mean Corpuscular Volume 93.1 fL (83.0-100.0); Monocytes # 0.9 K/mcL (0.0-1.3); Monocytes % 13.8 %; Neutrophils # 2.8 K/mcL (1.6-8.9); Platelet Count 307 K/mcL (140-400); Red Cell Distribution Width 12.9 % (11.5-14.5); Segmented Neutrophils % 43.9 %
[2017-02-06 03:42] LABS: BUN/Creatinine Ratio 13 (6-26); Blood Urea Nitrogen 11 mg/dL (8-26); Calcium 9.1 mg/dL (8.6-10.8); Carbon Dioxide 23 mEq/L (19-29); Chloride 105 mEq/L (98-109); Glucose 100 mg/dL (70-99); Osmolality,Calculated 283 (280-300); Potassium 3.8 mEq/L (3.5-4.5); Sodium 137 mEq/L (136-145); eGFR For African Americans > 60 (> 60); eGFR For Non-African Americans > 60 (> 60)
[2017-02-06] MEDS ORDERED: *HR* Enoxaparin 40 MG/0.4 ML SYRINGE SQ SCH (06:00)
[2017-02-06] MEDS ORDERED: BuPROPion XL (24 HR) 150 MG TABLET PO SCH (09:00)
[2017-02-06] MEDS ORDERED: Nicotine 14 MG PATCH.TD24 TD SCH (09:00)
[2017-02-06] MEDS: Nicotine 14 MG PATCH.TD24 TD SCH ×2 (10:01→17:48)
--- NOTE | 2017-02-06 13:12 | Internal Med Progress Note ---
Date of Encounter: 02/06/17 Time of Encounter: 13:10 - Assessment and plan (1) Cellulitis of finger of right hand Current Visit: Yes Status: Acute Assessment and plan: 26/M Admitted with cellulitis of the finger of the right hand. Failed outpatient antibiotics trial. Patient also complains of pain in his axilla. The pain is excruciating in nature and claims to be 10 out of 10 Plan: Patient has been evaluated by hand surgery. Patient is scheduled for surgery this afternoon. ( I and D) Patient is presently on IV Zosyn. We will continue antibiotics at this time. Depending on the culture we might have to readjust antibiotics. (2) Tobacco abuse Current Visit: No Status: Acute Assessment and plan: Discussed at length and patient is willing to take nicotine patches (3) Bipolar disorder Current Visit: Yes Status: Chronic Assessment and plan: Stable Qualifiers: Active/Remission status: currently active Current bipolar episode type: depressed Current episode severity: moderate Qualified Code(s): F31.32 - Bipolar disorder, current episode depressed, moderate (4) DVT prophylaxis Current Visit: Yes Status: Acute Assessment and plan: Lovenox - Subjective Interval history: Patient seen and examined. Chart reviewed. Patient complains of excruciating pain in his ring finger. Patient denies chest pain, shortness of breath, dizziness, abdominal pain or vomiting - Constitutional Vitals: Temp Pulse Resp BP Pulse Ox 98.3 F 83 10 127/81 97 02/06/17 10:36 02/06/17 10:36 02/06/17 10:36 02/06/17 10:36 02/06/17 10:36 General appearance: Present: A&O X 3, pleasant, no acute distress - Head Head exam: Present: atraumatic, normocephalic - Eye Eye exam: Present: PERRL, conjuntiva pink, sclera anicteric Pupils: Present: PERRL - Neck Neck exam general surgery: Present: supple, trachea midline. Absent: lymphadenopathy - Respiratory Respiratory exam: Present: CTAB. Absent: accessory muscle use, rales, rhonchi, wheezes - Cardiovascular Cardiovascular exam: Present: RRR, +S1, +S2. Absent: diastolic murmur, gallop, rubs, systolic murmur - GI/Abdominal GI/Abdominal exam: Present: normal bowel sounds, soft, no peritoneal signs. Absent: distended, tenderness - Extremities Exam Extremities exam: Present: warm, radial pulses palpable and symetrical. Absent : calf tenderness, cyanotic, pedal edema - Neurological Exam Neurological exam: Present: CN II-XII intact, oriented X3, no focal deficits. Absent: pronater drift, facial droop, speech deficit - Skin Skin exam: Present: dry, intact Internal Medicine: Result - Labs CBC & Chem 7: 02/06/17 03:18 02/06/17 03:18 Labs: Short CBC 02/06/17 Range/Units 03:18 WBC 6.4 (4.3-11.1) K/mcL Hgb 13.1 (12.9-16.9) g/dL Hct 39.1 (37.5-50.1) % Plt Count 307 (140-400) K/mcL Neutrophils # 2.8 (1.6-8.9) K/mcL BMP 02/06/17 03:18 Sodium 137 Potassium 3.8 Chloride 105 Carbon Dioxide 23 BUN 11 Creatinine 0.86 Glucose 100 H Calcium 9.1 Consult Discharge Plan - Plan Referrals: Aureliano Beebe, PAC [Primary Care Provider] -
--- NOTE | 2017-02-06 15:16 | Anesthesia Evaluation PreOp ---
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 History: Other (Bipolar disorder?, anxiety) Other Medical History: Other (cellulitis of the R 4th digit of the hand) Alcohol Use: occasionally Drug use: marijuana Medications and Allergies BuPROPion XL (24 HR) [Wellbutrin Xl] 300 mg PO DAILY #60 tab.er.24h 02/03/17 [Rx ] Quetiapine Fumarate [Seroquel] 100 mg PO HS #30 tablet 02/03/17 [Rx] Citalopram Hydrobromide [Citalopram HBr] 40 mg PO DAILY 02/05/17 [History] Dextroamphetamine/Amphetamine [Adderall 20 mg Tablet] 20 mg PO BID 02/05/17 [ History] Allergies No Known Allergies Allergy (Verified 01/28/17 18:50) - Meds/Allergy Pre-op Review Medications Reviewed: Yes Allergies Reviewed: Yes Beta Blockers on Current Med List: No Anesthesia Results - Labs 02/06/17 03:18 02/06/17 03:18 - Imaging EKG: report reviewed, image reviewed (SR) Anesthesia Exam Last Vital Signs Temp 98.3 F 02/06/17 10:36 Pulse 83 02/06/17 10:36 Resp 10 02/06/17 10:36 BP 127/81 02/06/17 10:36 Pulse Ox 97 02/06/17 10:36 Weight: 83 kg - HEENT Pupil (Motor): Pupils equal, EOMI Mallampati: II Teeth: Normal Oral Opening: Greater than 3 - DATA ANALYTICS ARCHITECT LOC: Oriented DATA ANALYTICS ARCHITECT Motor: Normal RUE, Normal LUE, Normal RLE, Normal LLE, Normal Face - Cardiac Rhythm: Regular Murmur: None - Pulmonary Breath Sounds: bilateral Clear Respiratory Effort: Symmetrical Anesthesia Assess/Plan ASA Score: 2 Modified [place] Scale for Level of Consciousness: Cooperative, oriented, and tranquil Anesthetic Plan: General Monitoring Plan: Standard Monitors Recovery Plan: PACU
[2017-02-06] MEDS ORDERED: *HR* Midazolam HCl 2 MG/2 ML VIAL ONE (15:40)
[2017-02-06] MEDS ORDERED: *HR* FentaNYL (PF) 100 MCG/2 ML VIAL ONE (15:40)
[2017-02-06] MEDS ORDERED: *HR* Propofol 200 MG/20 ML VIAL IVP ONE (15:40)
[2017-02-06] MEDS ORDERED: Ondansetron 4 MG/2 ML VIAL ONE (15:42)
[2017-02-06] MEDS ORDERED: Lidocaine -MPF 2% 2 ML VIAL ONE (15:42)
[2017-02-06] MEDS ORDERED: Dexamethasone 4 MG/ML VIAL ONE (15:42)
--- NOTE | 2017-02-06 16:51 | Operative Note ---
Date of procedure: 02/06/17 Pre-op diagnosis: Right ring finger abscess Post-op diagnosis: same (Right ring finger abscessFelon) Procedure: Right ring finger re-incision and drainage of abscess Anesthesia: ONDINA Surgeon: Marquez Zamora Paralegal Supervisor: Destinee Nowak Estimated blood loss (cc): 2 Tourniquet Time (Minutes): 4 Specimen: Cultures Condition: stable Disposition: PACU Procedure in Detail: Indications: The patient is a 26-year-old [id number] man who was being treated for a right ring finger infection with abscess. He underwent an and a few weeks ago. The patient was discharged and I will follow up in office. He later presented on the psychiatric unit and on consultation the finger appeared infected once again. He was responding well to by mouth Bactrim. The patient was discharged on Friday and presented to emergency room and Friday. Patient worsening redness. He was not on antibiotics. At that point it was decided to admit the patient for IV antibiotics and do a repeat formal I&D. Procedure: The patient's IV antibiotics were held. He was brought back into the operating room and placed on the OR table in supine position with the affected upper extremity on a hand table. A sign in was performed. The patient underwent general anesthesia, a tourniquet was placed on the right upper extremity close to the axilla, and the right upper extremity was prepped and draped in the usual sterile fashion. A timeout was performed. The right ring finger tip was swollen and erythematous mainly at the volar pad. He had a dry eschar on the distal ulnar side of the previous I&D was performed. The right upper extremity was elevated, exsanguinated with an Patrick wrap, and the tourniquet was raised to pressure 250 mmHg. The dry eschar was sharply debrided. The wound was extended 1.5 cm proximally in a mid lateral incision and 1 cm distally. The volar flap was elevated and a small amount of purulent fluid was encountered. Cultures were obtained for aerobic and anaerobic. The septae were broken through and the volar pad. The wounds copiously with normal saline. There did not appear to be more purulent fluid proximally dorsum of the digit. The tourniquet was deflated. The wound was copiously irrigated with normal saline once again. The incision was closed with 5-0 nylon simple sutures. The open area with eschar located was then packed with quarter-inch iodoform, packing deeply and the volar pad. Patient was given a digital block using 10 mL of 0.5% Marcaine Sterile dressings applied, including a volar finger splint. The patient was then extubated and taken to the recovery room in stable condition.
--- NOTE | 2017-02-06 17:24 | Anesthesia Evaluation Post Op ---
Date of Encounter: 02/06/17 Time of Encounter: 17:24 - Vital Signs Vital Signs: Last Vital Signs Temp 97.2 F L 02/06/17 16:55 Pulse 84 02/06/17 17:15 Resp 14 02/06/17 17:15 BP 120/75 02/06/17 17:15 Pulse Ox 99 02/06/17 17:15 - Lungs Lungs: Clear Ascult./Percussion - Airway Airway: Non-obstructed - Cardiovascular Regular Rate - Mental Status Mental Status: Alert & Oriented, Answers Appropriately - Pain Pain Scale: 2 - Nausea Vomiting Nausea Vomiting: Not Present - Hydration Hydration: Ice chips - Discharge PostOp Status: Transfer Patient to floor
[2017-02-06] MEDS ORDERED: Vancomycin 1,250 MG in D5% in Water 250 ML IVPB SCH (17:37)
[2017-02-06] MEDS ORDERED: Naloxone 0.4 MG/ML INJ IVP PRN (17:37)
[2017-02-06] MEDS ORDERED: Piperacillin/Tazobactam 3.375 GM in D5% in Water (Mini-Bag+) 100 ML IVPB SCH (18:00)
[2017-02-07] MEDS: ALPRAZolam 0.5 MG TABLET PO PRN ×2 (01:00→12:54)
[2017-02-07] MEDS: *HR* Morphine 2 MG/ML SYRINGE IVP PRN ×4 (02:57→19:46)
[2017-02-07] MEDS: *HR* HYDROcodone/Acet 5/325 mg TABLET PO PRN ×5 (04:13→23:04)
[2017-02-07 04:36] LABS: Basophils % 0.4 %; Eosinophils % 0.7 %; Hematocrit 39.4 % (37.5-50.1); Hemoglobin 12.9 g/dL (12.9-16.9); Immature Granulocytes % 0.4 % (0-4); Lymphocytes # 1.1 K/mcL (0.6-4.6); Lymphocytes % 19.4 %; Mean Corpuscular HGB Conc 32.7 g/dL (31.6-35.5); Mean Corpuscular Hemoglobin 30.6 pg (28.0-33.3); Mean Corpuscular Volume 93.4 fL (83.0-100.0); Mean Platelet Volume 10.2 fL (9.4-12.4); Monocytes # 0.5 K/mcL (0.0-1.3); Monocytes % 9.7 %; Neutrophils # 3.9 K/mcL (1.6-8.9); Platelet Count 327 K/mcL (140-400); Red Blood Count 4.22 M/mcL (4.19-5.50); Red Cell Distribution Width 12.7 % (11.5-14.5); Segmented Neutrophils % 69.4 %
[2017-02-07 04:57] LABS: Alanine Aminotransferase 31 Units/L (0-55); Albumin 3.4 g/dL (3.5-5.0); Albumin/Globulin Ratio 1.1 (1.1-2.2); Alkaline Phosphatase 88 Units/L (38-126); Aspartate Amino Transferase 17 Units/L (5-34); BUN/Creatinine Ratio 10 (6-26); Bilirubin,Total 1.2 mg/dL (0.2-1.2); Blood Urea Nitrogen 9 mg/dL (8-26); Carbon Dioxide 26 mEq/L (19-29); Chloride 104 mEq/L (98-109); Globulin 3.1 g/dL (2.4-3.5); Glucose 149 mg/dL (70-99); Osmolality,Calculated 287 (280-300); Sodium 138 mEq/L (136-145); Total Protein 6.5 g/dL (6.0-8.3); eGFR For African Americans > 60 (> 60); eGFR For Non-African Americans > 60 (> 60)
[2017-02-07] MEDS: *HR* Enoxaparin 40 MG/0.4 ML SYRINGE SQ SCH (06:46)
[2017-02-07] MEDS: BuPROPion XL (24 HR) 150 MG TABLET PO SCH (08:09)
[2017-02-07] MEDS: Piperacillin/Tazobactam 3.375 GM in D5% in Water (Mini-Bag+) 100 ML IVPB SCH ×3 (08:09→23:05)
[2017-02-07] MEDS: Nicotine 14 MG PATCH.TD24 TD SCH ×2 (09:48→18:22)
--- NOTE | 2017-02-07 13:01 | Electrocardiograph Report ---
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
--- NOTE | 2017-02-07 13:33 | Orthopedics Progress Note ---
Date of Encounter: 02/07/17 Time of Encounter: 12:30 - Assessment and Plan (1) Cellulitis of finger of right hand Current Visit: Yes Status: Acute POD#1 Right RF I&D Packing removed today. Begin local wound care washing incision with soap and water 3xdaily and keep covered until healed. Continue IV abx per hospitalist. Recommend at least 1 more night of IV abx. Upon discharge will need to have PO abx, Continue to elevate right hand and finger motion as tolerated. Will follow up in [facility] office with Destinee Nowak PA-C on 02/12/17 at 11:45am. Subjective Principal diagnosis: Right ring finger abscess Interval history: Patient doing well overnight. Denies any new complaints. States dressings kept coming off and have been change since surgery. Denies fever. Objective Vital signs: Vital Signs Temp Pulse Resp BP Pulse Ox 02/07/17 11:30 98.9 F 82 16 112/75 97 02/07/17 08:00 98.1 F 02/07/17 07:44 98.5 F 71 16 109/57 97 02/07/17 03:38 98.1 F 80 16 114/62 95 02/07/17 02:56 85 111/63 02/06/17 23:22 98.8 F 95 18 138/90 95 02/06/17 21:12 98.6 F 98 16 133/88 97 02/06/17 19:36 98.2 F 96 18 143/79 95 02/06/17 18:15 87 14 128/86 97 02/06/17 17:45 80 14 131/90 97 02/06/17 17:25 98.5 F 82 14 124/89 100 02/06/17 17:15 84 14 120/75 99 02/06/17 17:05 75 14 103/69 94 02/06/17 16:55 97.2 F L 76 14 112/64 95 Intake and Output 02/06/17 02/07/17 02/07/17 23:59 07:59 15:59 Intake Total 240 / 240 100 / 100 Output Total 5 / 5 Balance 235 / 235 100 / 100 Intake: IV Fluids 100 / 100 Zosyn 3.375 GM In 100 / 100 Dextrose 5% (Minibag+) 100 ML 100 ML @ 25 mls/hr IVPB Q8HR SH[facility]NA Rx#: [id number] Oral 240 / 240 Output: Estimated Blood Loss Other: Meal Dinner Percent of Meal Consumed 100% # Voids 1 Weight 86.046 kg Patient Weight 02/07/17 23:59 Weight 86.046 kg Incision: swollen (right finger continues to be swollen with erythema to entire digit. Incision is open with packing in place. No active drainage. ROM to finger limited. Brisk cap refill. NV intact) - Labs CBC & BMP: 02/07/17 03:54 02/07/17 03:54 Labs: Abnormal lab results Glucose 149 mg/dL (70-99) H 02/07/17 03:54 Albumin 3.4 g/dL (3.5-5.0) L 02/07/17 03:54 - VTE Documentation of Mechanical Device: Intermittent pneumatic compression device Consult Discharge Plan - Plan Additional Instructions: Begin local wound care washing incision with soap and water 3xdaily and keep covered until healed. Upon discharge will need to have PO abx, Continue to elevate right hand and finger motion as tolerated. Will follow up in [facility] office with Destinee Nowak PA-C on 02/12/17 at 11:45am. Referrals: Aureliano Beebe, PAC [Primary Care Provider] -
[2017-02-07] MEDS ORDERED: Aminoglycoside Consult 1 EACH MC ONE (14:11)
--- NOTE | 2017-02-07 16:47 | Internal Med Progress Note ---
Date of Encounter: 02/07/17 Time of Encounter: 16:45 - Assessment and plan (1) Cellulitis of finger of right hand Current Visit: Yes Status: Acute Assessment and plan: 26/M Admitted with cellulitis of the finger of the right hand. Failed outpatient antibiotics trial. Patient also complains of pain in his axilla. The pain is excruciating in nature and claims to be 10 out of 10 Plan: Patient has been evaluated by hand surgery. Patient is scheduled for surgery this afternoon. ( I and D) Patient is presently on IV Zosyn. We will continue antibiotics at this time. Depending on the culture we might have to readjust antibiotics. 02/07/2017 Postoperative day#1 On IV Zosyn. Patient underwent incision and drainage by orthopedic surgery. Patient feels much better as compared to yesterday. Noted response from orthopedic surgery. We will continue IV antibiotics tonight. Likely home tomorrow (2) Tobacco abuse Current Visit: No Status: Acute Assessment and plan: Discussed at length and patient is willing to take nicotine patches (3) Bipolar disorder Current Visit: Yes Status: Chronic Assessment and plan: Stable Qualifiers: Active/Remission status: currently active Current bipolar episode type: depressed Current episode severity: moderate Qualified Code(s): F31.32 - Bipolar disorder, current episode depressed, moderate (4) DVT prophylaxis Current Visit: Yes Status: Acute Assessment and plan: Lovenox - Subjective Interval history: Patient seen and examined. Chart reviewed. Patient complains of excruciating pain in his ring finger. Patient denies chest pain, shortness of breath, dizziness, abdominal pain or vomiting 02/07/2017 Seen and examined. Chart reviewed. Patient does not complain of any pain, shortness of breath, dizziness, diarrhea or abdominal pain - Constitutional Vitals: Temp Pulse Resp BP Pulse Ox 99.3 F 92 14 121/67 95 02/07/17 14:42 02/07/17 14:42 02/07/17 14:42 02/07/17 14:42 02/07/17 14:42 General appearance: Present: A&O X 3, pleasant, no acute distress - Head Head exam: Present: atraumatic, normocephalic - Eye Eye exam: Present: PERRL, conjuntiva pink, sclera anicteric Pupils: Present: PERRL - Neck Neck exam general surgery: Present: supple, trachea midline. Absent: lymphadenopathy - Respiratory Respiratory exam: Present: CTAB. Absent: accessory muscle use, rales, rhonchi, wheezes - Cardiovascular Cardiovascular exam: Present: RRR, +S1, +S2. Absent: diastolic murmur, gallop, rubs, systolic murmur - GI/Abdominal GI/Abdominal exam: Present: normal bowel sounds, soft, no peritoneal signs. Absent: distended, tenderness - Extremities Exam Extremities exam: Present: warm, radial pulses palpable and symetrical. Absent : calf tenderness, cyanotic, pedal edema Additional comments: Noted that patient had a surgery yesterday on his finger - Neurological Exam Neurological exam: Present: CN II-XII intact, oriented X3, no focal deficits. Absent: pronater drift, facial droop, speech deficit - Skin Skin exam: Present: dry, intact Internal Medicine: Result - Labs CBC & Chem 7: 02/07/17 03:54 02/07/17 03:54 Labs: Short CBC 02/07/17 Range/Units 03:54 WBC 5.6 (4.3-11.1) K/mcL Hgb 12.9 (12.9-16.9) g/dL Hct 39.4 (37.5-50.1) % Plt Count 327 (140-400) K/mcL Neutrophils # 3.9 (1.6-8.9) K/mcL BMP 02/07/17 03:54 Sodium 138 Potassium 4.0 Chloride 104 Carbon Dioxide 26 BUN 9 Creatinine 0.86 Glucose 149 H Calcium 9.0 Liver Function 02/07/17 Range/Units 03:54 Total Bilirubin 1.2 (0.2-1.2) mg/dL AST 17 (5-34) Units/L ALT 31 (0-55) Units/L Alkaline Phosphatase 88 (38-126) Units/L Albumin 3.4 L (3.5-5.0) g/dL - VTE Documentation of Mechanical Device: Intermittent pneumatic compression device Consult Discharge Plan - Plan Additional Instructions: Begin local wound care washing incision with soap and water 3xdaily and keep covered until healed. Upon discharge will need to have PO abx, Continue to elevate right hand and finger motion as tolerated. Will follow up in [facility] office with Destinee Nowak PA-C on 7/5/17 at 11:45am. Referrals: [place],Beulah F, PAC [Primary Care Provider] -
[2017-02-08] MEDS: *HR* Morphine 2 MG/ML SYRINGE IVP PRN ×5 (00:04→20:23)
[2017-02-08] MEDS: ALPRAZolam 0.5 MG TABLET PO PRN ×2 (00:04→12:02)
[2017-02-08] MEDS: *HR* HYDROcodone/Acet 5/325 mg TABLET PO PRN ×3 (03:25→13:28)
[2017-02-08] MEDS: *HR* Enoxaparin 40 MG/0.4 ML SYRINGE SQ SCH (04:44)
[2017-02-08 06:40] LABS: Alanine Aminotransferase 21 Units/L (0-55); Albumin 3.2 g/dL (3.5-5.0); Albumin/Globulin Ratio 1.1 (1.1-2.2); Alkaline Phosphatase 78 Units/L (38-126); Aspartate Amino Transferase 15 Units/L (5-34); BUN/Creatinine Ratio 12 (6-26); Bilirubin,Total 0.9 mg/dL (0.2-1.2); Blood Urea Nitrogen 10 mg/dL (8-26); Calcium 8.7 mg/dL (8.6-10.8); Carbon Dioxide 26 mEq/L (19-29); Chloride 106 mEq/L (98-109); Globulin 2.8 g/dL (2.4-3.5); Glucose 90 mg/dL (70-99); Osmolality,Calculated 287 (280-300); Potassium 3.9 mEq/L (3.5-4.5); Sodium 139 mEq/L (136-145); eGFR For African Americans > 60 (> 60); eGFR For Non-African Americans > 60 (> 60)
[2017-02-08] MEDS: Piperacillin/Tazobactam 3.375 GM in D5% in Water (Mini-Bag+) 100 ML IVPB SCH ×2 (07:27→15:24)
[2017-02-08] MEDS: BuPROPion XL (24 HR) 150 MG TABLET PO SCH (07:28)
[2017-02-08 08:53] LABS: Basophils # 0.1 K/mcL (0.0-0.2); Basophils % 0.9 %; Eosinophils # 0.4 K/mcL (0.0-0.6); Eosinophils % 7.1 %; Hematocrit 37.7 % (37.5-50.1); Hemoglobin 12.3 g/dL (12.9-16.9); Immature Granulocytes % 0.2 % (0-4); Lymphocytes # 2.3 K/mcL (0.6-4.6); Lymphocytes % 40.2 %; Mean Corpuscular HGB Conc 32.6 g/dL (31.6-35.5); Mean Corpuscular Hemoglobin 31.1 pg (28.0-33.3); Mean Corpuscular Volume 95.4 fL (83.0-100.0); Mean Platelet Volume 10.3 fL (9.4-12.4); Monocytes # 0.7 K/mcL (0.0-1.3); Monocytes % 12.8 %; Neutrophils # 2.2 K/mcL (1.6-8.9); Platelet Count 287 K/mcL (140-400); Red Blood Count 3.95 M/mcL (4.19-5.50); Red Cell Distribution Width 12.9 % (11.5-14.5); Segmented Neutrophils % 38.8 %
[2017-02-08] MEDS: Nicotine 21 MG PATCH.TD24 TD SCH (14:32)
[2017-02-08] MEDS ORDERED: *HR* LORazepam 2 MG/ML VIAL IVP PRN ×2 (15:07)
[2017-02-08] MEDS: *HR* LORazepam 2 MG/ML VIAL IVP PRN (16:25)
--- NOTE | 2017-02-08 16:57 | Internal Med Progress Note ---
Date of Encounter: 02/08/17 Time of Encounter: 16:53 - Assessment and plan (1) Alcohol withdrawal Current Visit: Yes Status: Acute Assessment and plan: This is a new finding since this morning. Noted that patient has a heavy history of alcohol consumption. Last drink: 3 days back. Tremors noted on both upper extremity, lips and generalized shaking. Plan: Will initiate CIWA protocol close observation Qualifiers: Complication of substance-induced condition: with unspecified complication Qualified Code(s): F10.239 - Alcohol dependence with withdrawal, unspecified (2) Cellulitis of finger of right hand Current Visit: Yes Status: Acute Assessment and plan: 26/M Admitted with cellulitis of the finger of the right hand. Failed outpatient antibiotics trial. Patient also complains of pain in his axilla. The pain is excruciating in nature and claims to be 10 out of 10 Plan: Patient has been evaluated by hand surgery. Patient is scheduled for surgery this afternoon. ( I and D) Patient is presently on IV Zosyn. We will continue antibiotics at this time. Depending on the culture we might have to readjust antibiotics. 02/07/2017 Postoperative day#1 On IV Zosyn. Patient underwent incision and drainage by orthopedic surgery. Patient feels much better as compared to yesterday. Noted response from orthopedic surgery. We will continue IV antibiotics tonight. Likely home tomorrow 02/08/2017 Postoperative day 2 On IV Zosyn Patient feels much better but likely in early alcohol withdrawal. Case discussed with infectious disease: Recommended clindamycin on discharge. (3) Tobacco abuse Current Visit: No Status: Acute Assessment and plan: Discussed at length and patient is willing to take nicotine patches (4) Bipolar disorder Current Visit: Yes Status: Chronic Assessment and plan: Stable Qualifiers: Active/Remission status: currently active Current bipolar episode type: depressed Current episode severity: moderate Qualified Code(s): F31.32 - Bipolar disorder, current episode depressed, moderate (5) DVT prophylaxis Current Visit: Yes Status: Acute Assessment and plan: Lovenox - Subjective Interval history: Patient seen and examined. Chart reviewed. Patient complains of excruciating pain in his ring finger. Patient denies chest pain, shortness of breath, dizziness, abdominal pain or vomiting 02/07/2017 Seen and examined. Chart reviewed. Patient does not complain of any pain, shortness of breath, dizziness, diarrhea or abdominal pain 02/08/2017 Seen and examined. Chart reviewed. Patient has persistent palpitation, tremors, slurring of speech, Patient claims that he is a heavy alcoholic and the last drink was 3 days back. - Constitutional Vitals: Temp Pulse Resp BP Pulse Ox 98.6 F 69 17 126/77 97 02/08/17 15:27 02/08/17 15:27 02/08/17 15:27 02/08/17 15:27 02/08/17 15:27 General appearance: Present: A&O X 3, pleasant, no acute distress - Head Head exam: Present: atraumatic, normocephalic Additional comments: I have examined this patient at bedside. Patient has a Bilaterally, tremors of his lips, and generalized shaking noted. Patient does not have any abnormality in his hair, neck, eyes, ears, cervical region and nasal area. Examination of heart reveals normal S1-S2. Lungs sounds are bilaterally equal. Examination of his abdomen is benign. Patient has a recent surgery on his right upper extremity finger. Brief neurological examination is negative for any CVA/TIA. Examination of skin does not reveal any bruise or - Eye Eye exam: Present: PERRL, conjuntiva pink, sclera anicteric Pupils: Present: PERRL - Neck Neck exam general surgery: Present: supple, trachea midline. Absent: lymphadenopathy - Respiratory Respiratory exam: Present: CTAB. Absent: accessory muscle use, rales, rhonchi, wheezes - Cardiovascular Cardiovascular exam: Present: RRR, +S1, +S2. Absent: diastolic murmur, gallop, rubs, systolic murmur - GI/Abdominal GI/Abdominal exam: Present: normal bowel sounds, soft, no peritoneal signs. Absent: distended, tenderness - Extremities Exam Extremities exam: Present: warm, radial pulses palpable and symetrical. Absent : calf tenderness, cyanotic, pedal edema - Neurological Exam Neurological exam: Present: CN II-XII intact, oriented X3, no focal deficits. Absent: pronater drift, facial droop, speech deficit - Skin Skin exam: Present: dry, intact Internal Medicine: Result - Labs CBC & Chem 7: 02/08/17 05:54 02/08/17 05:54 Labs: Short CBC 02/08/17 Range/Units 05:54 WBC 5.6 (4.3-11.1) K/mcL Hgb 12.3 L (12.9-16.9) g/dL Hct 37.7 (37.5-50.1) % Plt Count 287 (140-400) K/mcL Neutrophils # 2.2 (1.6-8.9) K/mcL BMP 02/08/17 05:54 Sodium 139 Potassium 3.9 Chloride 106 Carbon Dioxide 26 BUN 10 Creatinine 0.82 Glucose 90 Calcium 8.7 Liver Function 02/08/17 Range/Units 05:54 Total Bilirubin 0.9 (0.2-1.2) mg/dL AST 15 (5-34) Units/L ALT 21 (0-55) Units/L Alkaline Phosphatase 78 (38-126) Units/L Albumin 3.2 L (3.5-5.0) g/dL - VTE Documentation of Mechanical Device: Intermittent pneumatic compression device Consult Discharge Plan - Plan Additional Instructions: Begin local wound care washing incision with soap and water 3xdaily and keep covered until healed. Upon discharge will need to have PO abx, Continue to elevate right hand and finger motion as tolerated. Will follow up in [facility] office with Destinee Nowak PA-C on 02/12/17 at 11:45am. Referrals: Aureliano Beebe, PAC [Primary Care Provider] -
[2017-02-08] MEDS ORDERED: Thiamine (B-1) 100 MG, Folic Acid 1 MG, MVI, adult with vitamin K 10 ML in 0.9 % Sodi... IVPB SCH (18:00)
--- NOTE | 2017-02-08 19:56 | Orthopedics Progress Note ---
Date of Encounter: 02/08/17 Time of Encounter: 19:55 Subjective Principal diagnosis: Right ring finger abscess Interval history: S: Doing well clinically. Pin improved to his right ring finger. O: Afeb/VSS Right ring finger with minimal swelling, and minimal redness surrounding ulnar sided ulcer and I and D site No drainage. Minimal tenderness He can flex and extend the digits with some limitation due to pain. The fingertip is sensate and well perfused. A: Post I and D of the right ring finger. P: Progressing nicely. May switch to oral antibiotics and discharge with daily dressing changes and soapy soaks Follow up with Destinee Nowak in the office in 1 week Orthopedically stable for discharge; Will be available as needed if he worsens clinically. Objective Vital signs: Vital Signs Temp Pulse Resp BP Pulse Ox 02/08/17 18:37 98.7 F 80 15 136/88 97 02/08/17 15:27 98.6 F 69 17 126/77 97 02/08/17 11:56 98.6 F 76 15 131/82 97 02/08/17 07:40 98.2 F 66 13 137/89 97 02/08/17 03:43 97.6 F 70 16 126/74 97 02/07/17 22:52 98.0 F 81 14 124/83 96 02/07/17 20:00 99 Intake and Output 02/08/17 02/08/17 02/08/17 07:59 15:59 23:59 Intake Total 100 / 100 1060 / 1060 400 / 400 Output Total 700 / 700 550 / 550 0 / 0 Balance -600 / -600 510 / 510 400 / 400 Intake: IV Fluids 100 / 100 100 / 100 Zosyn 3.375 GM In 100 / 100 100 / 100 Dextrose 5% (Minibag+) 100 ML 100 ML @ 25 mls/hr IVPB Q8HR [facility] Rx#: [id number] Oral 960 / 960 400 / 400 Output: Urine 700 / 700 550 / 550 0 / 0 Other: Meal Breakfast Dinner Percent of Meal Consumed 100% # Voids 1 Weight 86.409 kg Patient Weight 02/08/17 23:59 Weight 86.409 kg - Labs CBC & BMP: 02/08/17 05:54 02/08/17 05:54 Labs: Abnormal lab results RBC 3.95 M/mcL (4.19-5.50) L 02/08/17 05:54 Hgb 12.3 g/dL (12.9-16.9) L 02/08/17 05:54 Albumin 3.2 g/dL (3.5-5.0) L 02/08/17 05:54 - VTE Documentation of Mechanical Device: Intermittent pneumatic compression device Consult Discharge Plan - Plan Additional Instructions: Begin local wound care washing incision with soap and water 3xdaily and keep covered until healed. Upon discharge will need to have PO abx, Continue to elevate right hand and finger motion as tolerated. Will follow up in [facility] office with Destinee Nowak PA-C on 02/12/17 at 11:45am. Referrals: Aureliano Beebe, PAC [Primary Care Provider] -
[2017-02-09] MEDS: Piperacillin/Tazobactam 3.375 GM in D5% in Water (Mini-Bag+) 100 ML IVPB SCH ×5 (01:30→23:45)
[2017-02-09] MEDS: *HR* Morphine 2 MG/ML SYRINGE IVP PRN ×6 (01:30→23:44)
[2017-02-09] MEDS: *HR* Enoxaparin 40 MG/0.4 ML SYRINGE SQ SCH (06:06)
[2017-02-09] MEDS: Nicotine 21 MG PATCH.TD24 TD SCH (08:20)
[2017-02-09] MEDS: Vitamin B Complex/Vit C/Vit E 1 EACH TABLET PO SCH (08:20)
[2017-02-09] MEDS: BuPROPion XL (24 HR) 150 MG TABLET PO SCH (08:20)
[2017-02-09] MEDS: ALPRAZolam 0.5 MG TABLET PO PRN ×2 (08:20→19:24)
[2017-02-09] MEDS: Folic Acid 1 MG TABLET PO SCH (08:20)
[2017-02-09] MEDS: Thiamine (B-1) 100 MG TABLET PO SCH (08:20)
[2017-02-09 10:34] LABS: Amphetamine Screen,Urine Negative ng/mL (Cutoff=1000); Barbiturate Screen,Urine Negative ng/mL (Cutoff=200); Benzodiazepines Screen,Urine Negative ng/mL (Cutoff=200); Cannabinoid Screen,Urine Negative ng/mL (Cutoff = 50); Cocaine Screen,Urine Negative ng/mL (Cutoff= 300); Opiate Screen,Urine Positive ng/mL (Cutoff=300); Phencyclidine Screen,Urine Negative ng/mL (Cutoff=25)
[2017-02-09] MEDS: *HR* LORazepam 2 MG/ML VIAL IVP PRN (15:36)
--- NOTE | 2017-02-09 16:16 | Internal Med Progress Note ---
Date of Encounter: 02/09/17 Time of Encounter: 16:14 - Assessment and plan (1) Alcohol withdrawal Current Visit: Yes Status: Acute Assessment and plan: This is a new finding since this morning. Noted that patient has a heavy history of alcohol consumption. Last drink: 3 days back. Tremors noted on both upper extremity, lips and generalized shaking. Plan: Will initiate CIWA protocol close observation 02/09/2017 Patient is still having tremors and agitation. Patient is presently getting Ativan as per CIWA protocol. No seizures noted. Patient is maintaining adequate oxygen saturation and Circulatory status. No signs of aspiration. Plan: Will continue close observation. If patient clinically worsens then he needs to be transferred to inpatient unit/ stepdown unit Qualifiers: Complication of substance-induced condition: with unspecified complication Qualified Code(s): F10.239 - Alcohol dependence with withdrawal, unspecified (2) Cellulitis of finger of right hand Current Visit: Yes Status: Acute Assessment and plan: 26/M Admitted with cellulitis of the finger of the right hand. Failed outpatient antibiotics trial. Patient also complains of pain in his axilla. The pain is excruciating in nature and claims to be 10 out of 10 Plan: Patient has been evaluated by hand surgery. Patient is scheduled for surgery this afternoon. ( I and D) Patient is presently on IV Zosyn. We will continue antibiotics at this time. Depending on the culture we might have to readjust antibiotics. 02/07/2017 Postoperative day#1 On IV Zosyn. Patient underwent incision and drainage by orthopedic surgery. Patient feels much better as compared to yesterday. Noted response from orthopedic surgery. We will continue IV antibiotics tonight. Likely home tomorrow 02/08/2017 Postoperative day 2 On IV Zosyn Patient feels much better but likely in early alcohol withdrawal. Case discussed with infectious disease: Recommended clindamycin on discharge. 02/09/2017 Postoperative day 3 On IV Zosyn Input from orthopedics appreciated. (3) Tobacco abuse Current Visit: No Status: Acute Assessment and plan: Discussed at length and patient is willing to take nicotine patches (4) Bipolar disorder Current Visit: Yes Status: Chronic Assessment and plan: Stable Qualifiers: Active/Remission status: currently active Current bipolar episode type: depressed Current episode severity: moderate Qualified Code(s): F31.32 - Bipolar disorder, current episode depressed, moderate (5) DVT prophylaxis Current Visit: Yes Status: Acute Assessment and plan: Lovenox - Subjective Interval history: Patient seen and examined. Chart reviewed. Patient complains of excruciating pain in his ring finger. Patient denies chest pain, shortness of breath, dizziness, abdominal pain or vomiting 02/07/2017 Seen and examined. Chart reviewed. Patient does not complain of any pain, shortness of breath, dizziness, diarrhea or abdominal pain 02/08/2017 Seen and examined. Chart reviewed. Patient has persistent palpitation, tremors, slurring of speech, Patient claims that he is a heavy alcoholic and the last drink was 3 days back. 02/09/2017 Seen and examined. Chart reviewed. Patient has persistent palpitation, tremors and slurring of speech. - Constitutional Vitals: Temp Pulse Resp BP Pulse Ox 98.4 F 59 15 133/88 97 02/09/17 15:44 02/09/17 15:44 02/09/17 15:44 02/09/17 15:44 02/09/17 15:44 General appearance: Present: A&O X 3, pleasant, no acute distress - Head Head exam: Present: atraumatic, normocephalic - Eye Eye exam: Present: PERRL, conjuntiva pink, sclera anicteric Pupils: Present: PERRL - Neck Neck exam general surgery: Present: supple, trachea midline. Absent: lymphadenopathy - Respiratory Respiratory exam: Present: CTAB. Absent: accessory muscle use, rales, rhonchi, wheezes - Cardiovascular Cardiovascular exam: Present: RRR, +S1, +S2. Absent: diastolic murmur, gallop, rubs, systolic murmur - GI/Abdominal GI/Abdominal exam: Present: normal bowel sounds, soft, no peritoneal signs. Absent: distended, tenderness - Extremities Exam Extremities exam: Present: warm, radial pulses palpable and symetrical. Absent : calf tenderness, cyanotic, pedal edema - Neurological Exam Neurological exam: Present: CN II-XII intact, oriented X3, no focal deficits. Absent: pronater drift, facial droop, speech deficit - Skin Skin exam: Present: dry, intact Internal Medicine: Result - Labs CBC & Chem 7: 02/08/17 05:54 02/08/17 05:54 - VTE Documentation of Mechanical Device: Intermittent pneumatic compression device Consult Discharge Plan - Plan Additional Instructions: Begin local wound care washing incision with soap and water 3xdaily and keep covered until healed. Upon discharge will need to have PO abx, Continue to elevate right hand and finger motion as tolerated. Will follow up in [facility] office with Destinee Nowak PA-C on 02/12/17 at 11:45am. Referrals: Aureliano Beebe, PAC [Primary Care Provider] -
[2017-02-09 16:53] LABS: Alanine Aminotransferase 25 Units/L (0-55); Albumin 3.8 g/dL (3.5-5.0); Albumin/Globulin Ratio 1.1 (1.1-2.2); Alkaline Phosphatase 80 Units/L (38-126); Aspartate Amino Transferase 23 Units/L (5-34); BUN/Creatinine Ratio 9 (6-26); Bilirubin,Total 1.1 mg/dL (0.2-1.2); Blood Urea Nitrogen 9 mg/dL (8-26); Calcium 9.6 mg/dL (8.6-10.8); Carbon Dioxide 24 mEq/L (19-29); Chloride 103 mEq/L (98-109); Globulin 3.4 g/dL (2.4-3.5); Glucose 80 mg/dL (70-99); Osmolality,Calculated 284 (280-300); Potassium 4.2 mEq/L (3.5-4.5); Sodium 138 mEq/L (136-145); Total Protein 7.2 g/dL (6.0-8.3); eGFR For African Americans > 60 (> 60); eGFR For Non-African Americans > 60 (> 60)
[2017-02-09 16:54] LABS: Basophils # 0.1 K/mcL (0.0-0.2); Basophils % 0.8 %; Eosinophils # 0.3 K/mcL (0.0-0.6); Eosinophils % 4.7 %; Hematocrit 44.6 % (37.5-50.1); Hemoglobin 14.6 g/dL (12.9-16.9); Immature Granulocytes % 0.1 % (0-4); Lymphocytes # 1.6 K/mcL (0.6-4.6); Lymphocytes % 21.9 %; Mean Corpuscular HGB Conc 32.7 g/dL (31.6-35.5); Mean Corpuscular Hemoglobin 30.5 pg (28.0-33.3); Mean Corpuscular Volume 93.3 fL (83.0-100.0); Mean Platelet Volume 9.5 fL (9.4-12.4); Monocytes # 0.9 K/mcL (0.0-1.3); Monocytes % 11.7 %; Neutrophils # 4.4 K/mcL (1.6-8.9); Platelet Count 333 K/mcL (140-400); Red Blood Count 4.78 M/mcL (4.19-5.50); Red Cell Distribution Width 12.3 % (11.5-14.5); Segmented Neutrophils % 60.8 %
[2017-02-10 03:22] LABS: Basophils # 0.1 K/mcL (0.0-0.2); Basophils % 0.9 %; Eosinophils # 0.4 K/mcL (0.0-0.6); Eosinophils % 5.5 %; Hematocrit 43.5 % (37.5-50.1); Hemoglobin 13.9 g/dL (12.9-16.9); Immature Granulocytes % 0.3 % (0-4); Lymphocytes # 2.2 K/mcL (0.6-4.6); Lymphocytes % 32.8 %; Mean Corpuscular Hemoglobin 30.7 pg (28.0-33.3); Mean Platelet Volume 9.7 fL (9.4-12.4); Platelet Count 295 K/mcL (140-400); Red Blood Count 4.53 M/mcL (4.19-5.50); Red Cell Distribution Width 12.5 % (11.5-14.5); Segmented Neutrophils % 45.5 %
[2017-02-10 03:41] LABS: Alanine Aminotransferase 25 Units/L (0-55); Albumin 3.4 g/dL (3.5-5.0); Alkaline Phosphatase 83 Units/L (38-126); Aspartate Amino Transferase 22 Units/L (5-34); BUN/Creatinine Ratio 13 (6-26); Bilirubin,Total 0.7 mg/dL (0.2-1.2); Blood Urea Nitrogen 13 mg/dL (8-26); Calcium 9.5 mg/dL (8.6-10.8); Carbon Dioxide 26 mEq/L (19-29); Chloride 103 mEq/L (98-109); Globulin 3.3 g/dL (2.4-3.5); Glucose 119 mg/dL (70-99); Osmolality,Calculated 287 (280-300); Potassium 4.2 mEq/L (3.5-4.5); Sodium 138 mEq/L (136-145); Total Protein 6.7 g/dL (6.0-8.3); eGFR For African Americans > 60 (> 60); eGFR For Non-African Americans > 60 (> 60)
[2017-02-10] MEDS: *HR* HYDROcodone/Acet 5/325 mg TABLET PO PRN (06:10)
[2017-02-10] MEDS: ALPRAZolam 0.5 MG TABLET PO PRN (06:10)
[2017-02-10] MEDS: *HR* Enoxaparin 40 MG/0.4 ML SYRINGE SQ SCH (06:10)
[2017-02-10 07:18] VITALS: BP 106/68
[2017-02-10] MEDS: BuPROPion XL (24 HR) 150 MG TABLET PO SCH (08:06)
[2017-02-10] MEDS: Vitamin B Complex/Vit C/Vit E 1 EACH TABLET PO SCH (08:06)
[2017-02-10] MEDS: Folic Acid 1 MG TABLET PO SCH (08:06)
[2017-02-10] MEDS: Thiamine (B-1) 100 MG TABLET PO SCH (08:07)
[2017-02-10] MEDS: Nicotine 21 MG PATCH.TD24 TD SCH (08:08)
[2017-02-10] MEDS: Piperacillin/Tazobactam 3.375 GM in D5% in Water (Mini-Bag+) 100 ML IVPB SCH (08:25)
--- NOTE | 2017-02-10 10:03 | Discharge Summary ---
Date of Encounter: 02/10/17 Time of Encounter: 09:59 - Discharge Diagnosis (1) Alcohol withdrawal Priority: Primary Status: Acute Qualifiers: Complication of substance-induced condition: with unspecified complication Qualified Code(s): F10.239 - Alcohol dependence with withdrawal, unspecified (2) Cellulitis of finger of right hand Priority: Primary Status: Acute (3) Tobacco abuse Priority: Secondary Status: Acute (4) Bipolar disorder Priority: Secondary Status: Chronic Qualifiers: Active/Remission status: currently active Current bipolar episode type: depressed Current episode severity: moderate Qualified Code(s): F31.32 - Bipolar disorder, current episode depressed, moderate (5) DVT prophylaxis Priority: Secondary Status: Acute - Discharge Medications Prescriptions: Clindamycin [Cleocin] 600 mg PO Q8HR #30 capsule HYDROcodone/Acet 5/325 mg [[place] 5-325 mg] 1 tab PO Q12HR PRN #7 tablet PRN Reason: Moderate Pain (4-6) Nicotine Patch [Nicoderm] 21 mg TD DAILY #30 patch.td24 Home Medications: BuPROPion XL (24 HR) [Wellbutrin Xl] 300 mg PO DAILY #60 tab.er.24h 02/03/17 [Rx ] Quetiapine Fumarate [Seroquel] 100 mg PO HS #30 tablet 02/03/17 [Rx] Citalopram Hydrobromide [Citalopram HBr] 40 mg PO DAILY 02/05/17 [History] Dextroamphetamine/Amphetamine [Adderall 20 mg Tablet] 20 mg PO BID 02/05/17 [ History] Clindamycin [Cleocin] 600 mg PO Q8HR #30 capsule 02/10/17 [Rx] HYDROcodone/Acet 5/325 mg [[place] 5-325 mg] 1 tab PO Q12HR PRN #7 tablet [Rx] Nicotine Patch [Nicoderm] 21 mg TD DAILY #30 patch.td24 02/10/17 [Rx] Allergies/Adverse Reactions: Allergies No Known Allergies Allergy (Verified 01/28/17 18:50) Date of admission: 02/05/17 19:26 Primary care physician: Aureliano Beebe Consults: 02/08/17 15:07 Consult to [employer] Estimator [CONS] Routine Reason for SW Consult: alcohol abuse Discharging clinician: Emilio Heller - Patient Status Disposition: Home, Self-Care Condition: Good Functional capacity at discharge: independent ambulation Overall status at discharge: patient is progressing back to baseline - Discharge Instructions Follow Up With: Aureliano Beebe, PAC [Primary Care Provider] - Grecia Diaz MD [Partnered Physician] - Destinee Nowak PAC [Physician [employer]] - Additional Instructions: Begin local wound care washing incision with soap and water 3xdaily and keep covered until healed. Upon discharge will need to have PO abx, Continue to elevate right hand and finger motion as tolerated. Will follow up in [facility] office with Destinee Nowak PA-C on 02/12/17 at 11:45am. - Diet and Activity Activity: increase activity as tolerated Diet: low fat, low cholesterol Interval History: Mr. Segura is a 26 year old male presented to the ER today with complaints of right fourth finger pain, swelling and redness. Patient was previously admitted with cellulitis and flexor tenosynovitis in his right fourth digit and had an I&D by Dr. Zamora and was discharged on Augmentin. It is unclear whether the patient was compliant with outpatient treatment with oral antibiotics. Patient reports his pain and swelling has been getting worse the last few days she has right came to the ER. He denies any fever, chills, sweats. He denies any nausea, vomiting, abdominal pain or diarrhea. Evaluation in the emergency department revealed normal white blood cell count is 6.6. Finger x-ray showed nonspecific diffuse soft tissue swelling of the fourth digit, in no acute osseous abnormality. He was consulted, and plans to take the patient for an I& D tomorrow and requests patient be on IV vancomycin. On exam, patient alert and oriented, reporting he is anxious about his finger and the procedure. Heart has regular rate and rhythm, lungs are clear bilaterally to auscultation. Right fourth digit has erythema and swelling of the entire digit with oh bilateral area of necrosis tissue on the distal interphalangeal joint. Hospital course: Patient was hospitalized. Patient was seen by hand surgery. Patient was taken to the operating room for incision and drainage for the cellulitis of his right finger. Patient tolerated the procedure well. Patient was started on IV antibiotics, Zosyn 3 times a day. Today's a Day 5, wound culture grew normal skin carlos no apparent pathogen isolated. The right ring finger, at the time of 50 day the culture showed no anaerobic growth. Blood culture is negative so far. Patient bases 5 days of IV Zosyn. Hospitalization patient developed alcohol withdrawal and he was treated as per [facility] protocol. Patient is much better as compared to the yesterday. He does not seem to be in any more in alcohol withdrawal. Plan: Patient is insisting on going home. I had a discussion with infectious disease and they recommended clindamycin for a total of 2 weeks. Patient will follow up with infectious disease as outpatient. Patient will follow up with the hand surgery as outpatient - Time Spent with Patient Total time spent providing and/or coordinating discharge services: - Constitutional Vitals: Temp Pulse Resp BP Pulse Ox 97.4 F L 61 15 106/68 97 02/10/17 07:14 02/10/17 07:14 02/10/17 07:14 02/10/17 07:14 02/10/17 08:00 General appearance: Present: A&O X 3, pleasant, no acute distress - Head Head exam: Present: atraumatic, normocephalic - Eye Eye exam: Present: PERRL, conjuntiva pink, sclera anicteric Pupils: Present: PERRL - Neck Neck exam general surgery: Present: supple, trachea midline. Absent: lymphadenopathy - Respiratory Respiratory exam: Present: CTAB. Absent: accessory muscle use, rales, rhonchi, wheezes - Cardiovascular Cardiovascular exam: Present: RRR, +S1, +S2. Absent: diastolic murmur, gallop, rubs, systolic murmur - GI/Abdominal GI/Abdominal exam: Present: normal bowel sounds, soft, no peritoneal signs. Absent: distended, tenderness - Extremities Exam Extremities exam: Present: warm, radial pulses palpable and symetrical. Absent : calf tenderness, cyanotic, pedal edema - Neurological Exam Neurological exam: Present: CN II-XII intact, oriented X3, no focal deficits. Absent: pronater drift, facial droop, speech deficit - Skin Skin exam: Present: dry, intact - VTE Documentation of Mechanical Device: Intermittent pneumatic compression device
== END 2017-02-10 11:53 | disposition home or self-care (01) | DRG 383 ==
LOC: EMEROO 14:09 → 3BNU 14:09
PROVIDERS: ADMIT Internal Medicine; ATTEND Nurse Practitioner Family

== ENCOUNTER 2017-07-03 22:56 | Inpatient (IN) ==
--- NOTE | 2017-07-03 23:18 | Emergency Department Note ---
Disposition Clinical Impression: Suicidal ideation Disposition: Admitted As Inpatient Condition: Fair Time of Disposition: 05:47 Psych HPI - General Chief Complaint: ED Psychiatric Symptoms Stated Complaint: SI Time Seen by Provider: 07/03/17 22:58 Source: patient Limitations: no limitations Nursing Notes Reviewed: Yes Vital Signs Reviewed: Yes - History of Present Illness HPI Narrative: 26-year-old male history of bipolar presents to the emergency department for suicidal ideation. States for the past few days he is been at a friends house and left his medications and his mom's car. He is been unable to reach her. For past 3 days he has been feeling suicidal. Medications including citalopram. He believes because he has been off these medications he been developing these thoughts. Today he had thoughts of hurting himself by laying on train tracks. He is not have access to a gun. He has had multiple psychiatric hospitalizations here in the past. He called the crisis center and was recommended to come here for further evaluation. He follows that [facility] and [facility]. No new changes to his medications. Does reports some associated nausea and lower abdominal pain. Denies any trauma or injury to the area. He has not eaten much over the past 24 hours. Pt complaint: suicidal ideation - Related Data Home Medications Medication Instructions Recorded Confirmed Citalopram Hydrobromide 40 mg PO DAILY 02/05/17 02/05/17 [Citalopram HBr] Dextroamphetamine/Amphetamine 20 mg PO BID 02/05/17 02/05/17 [Adderall 20 mg Tablet] Previous Rx's Medication Instructions Recorded BuPROPion XL (24 HR) [Wellbutrin 300 mg PO DAILY #60 tab.er.24h 02/03/17 Xl] Quetiapine Fumarate [Seroquel] 100 mg PO HS #30 tablet 02/03/17 Clindamycin [Cleocin] 600 mg PO Q8HR #30 capsule 02/10/17 HYDROcodone/Acet 5/325 mg [Omega 1 tab PO Q12HR PRN #7 tablet 02/10/17 5-325 mg] Nicotine Patch [Nicoderm] 21 mg TD DAILY #30 patch.td24 02/10/17 Allergies Allergy/AdvReac Type Severity Reaction Status Date / Time No Known Allergies Allergy Verified 01/28/17 18:50 All systems ED: reviewed and negative except as stated. Review of Systems: As Per HPI Constitutional: Denies: fever, chills Cardiovascular: Denies: chest pain Respiratory: Denies: cough, dyspnea Gastrointestinal: Reports: abdominal pain, nausea. Denies: vomiting, diarrhea Genitourinary: Denies: urgency, dysuria Musculoskeletal: Denies: back pain, neck pain Integumentary: Denies: rash, abrasion Neurological: Denies: headache Psychiatric: Reports: depression, suicidal thoughts. Denies: anxiety, homicidal thoughts, auditory hallucinations, visual hallucinations Endocrine: Denies: fatigue Past Medical History - Past Medical History Attestation: Yes The following information was validated with the patient. Source: patient Medical history: Reports: arthritis Surgical history: Reports: non-contributory Psychiatric history: Reports: anxiety, bipolar, depression - Social History Smoking Status: Current every day smoker Smokeless Tobacco Status: No Alcohol use: Reports: occasionally Drug use: Reports: marijuana Physical Exam - General Limitations: no limitations General appearance: alert, in no apparent distress - Head Head exam: atraumatic, normocephalic, normal inspection - Eye Eye exam: Present: normal appearance, PERRL, EOMI - ENT ENT exam: normal exam, normal oropharynx, mucous membranes moist - Neck Neck exam: Present: normal inspection, full ROM, trachea midline - Chest Chest inspection: Present: normal inspection, symmetric chest wall rise - Respiratory Respiratory exam: Present: normal lung sounds bilaterally. Absent: respiratory distress, wheezes - Cardiovascular Cardiovascular exam: Present: regular rate, normal rhythm, normal heart sounds - Abdominal Exam Abdominal exam: Present: soft, tenderness, normal bowel sounds. Absent: Non- Tender, distention, guarding, rebound, rigidity Abdominal tenderness: Present: suprapubic - Extremities Exam Extremities exam: Present: normal inspection, full ROM, normal capillary refill. Absent: tenderness, pedal edema, calf tenderness - Back Exam Back exam: Present: normal inspection, full ROM. Absent: tenderness, CVA tenderness (R), CVA tenderness (L), vertebral tenderness - Neurological Exam Neurological exam: Present: alert, oriented X3 - Psychiatric Psychiatric exam: Present: depressed, flat affect, suicidal ideation - Skin Skin exam: Present: warm, dry, intact, normal color Course Course Narrative: 26-year-old male presents with suicidal ideation. Plan was to lay on train tracks to her himself. Reports being without his medications for past 3 days. Does reports on the abdominal discomfort nausea. He has not been eating much over the past 24 hours. His exam is otherwise unremarkable. Some mild tenderness to the lower abdomen otherwise soft nondistended nonrigid. Will get medical clearance and add LFTs and a lipase. - Reevaluation(s) Reevaluation #1: 1A called, medically cleared Time: 01:50 Reevaluation #2: [address] psychiatry service was consulted and evaluated patient in the emergency department and patient is being admitted to the [address] psychiatric unit Vital Signs Temperature 97.8 F 07/03/17 23:00 Pulse Rate 75 07/03/17 23:00 Respiratory Rate 18 07/03/17 23:00 Blood Pressure 131/83 07/03/17 23:00 O2 Sat by Pulse Oximetry 96 07/03/17 23:00 Temperature 98 F 07/04/17 05:10 Pulse Rate 72 07/04/17 02:01 Respiratory Rate 18 07/04/17 05:10 Blood Pressure 124/72 07/04/17 05:10 O2 Sat by Pulse Oximetry 97 07/04/17 02:01 Oxygen Delivery Oxygen Delivery Room Air Psych - Lab Data Result diagrams: 07/04/17 00:58 07/04/17 00:58 Lab Results 07/03/17 07/03/17 07/04/17 Range/Units 23:22 23:22 00:58 WBC 8.0 (4.3-11.1) K/mcL RBC 4.47 (4.19-5.50) M/mcL Hgb 13.6 (12.9-16.9) g/dL Hct 41.4 (37.5-50.1) % MCV 92.6 (83.0-100.0) fL MCH 30.4 (28.0-33.3) pg MCHC 32.9 (31.6-35.5) g/dL RDW 13.8 (11.5-14.5) % Plt Count 312 (140-400) K/mcL MPV 9.9 (9.4-12.4) fL Immature Gran % 0.2 (0-4) % Seg Neutrophils % 70.9 % Lymphocytes % 19.2 % Monocytes % 8.0 % Eosinophils % 1.2 % Basophils % 0.5 % Neutrophils # 5.7 (1.6-8.9) K/mcL Lymphocytes # 1.5 (0.6-4.6) K/mcL Monocytes # 0.6 (0.0-1.3) K/mcL Eosinophils # 0.1 (0.0-0.6) K/mcL Basophils # 0.0 (0.0-0.2) K/mcL Sodium (136-145) mEq/L Potassium (3.5-4.5) mEq/L Chloride (98-109) mEq/L Carbon Dioxide (19-29) mEq/L BUN (8-26) mg/dL Creatinine (0.72-1.25) mg/dL Est GFR ( Amer) (> 60) Est GFR (Non-Af Amer) (> 60) BUN/Creatinine Ratio (6-26) Glucose (70-99) mg/dL Calculated Osmolality (280-300) Calcium (8.6-10.8) mg/dL Total Bilirubin (0.2-1.2) mg/dL Direct Bilirubin (0.0-0.5) mg/dL Indirect Bilirubin (0.0-1.2) mg/dL AST (5-34) Units/L ALT (0-55) Units/L Alkaline Phosphatase (38-126) Units/L Serum Total Protein (6.0-8.3) g/dL Albumin (3.5-5.0) g/dL Globulin (2.4-3.5) g/dL Albumin/Globulin Ratio (1.1-2.2) Urine Color Yellow (Yellow) Urine Clarity Clear (Clear) Urine pH 7.5 (5.0-8.0) pH Units Ur Specific [place] 1.025 (1.010-1.025) Urine Protein Trace (Neg-Trace) mg/dL Urine Glucose (UA) Normal (Normal) mg/dL Urine Ketones Negative (Negative) mg/dL Urine Blood Negative (Negative) Urine Nitrite Negative (Negative) Urine Bilirubin Negative (Negative) Urine Urobilinogen Normal (Normal) mg/dL Ur Leukocyte Esterase Negative (Negative) Urine Microscopic RBC 5-15 H (0-3) per hpf Urine Microscopic WBC 0-3 (0-3) per hpf Ur Squamous Epith Cells Few (None-Few) per lpf Urine Bacteria None Seen (None-Few) per hpf Hyaline Casts None Seen (None-Few) per lpf Salicylates (15-30) mg/dL Urine Opiates Screen Positive H (Vpcrmj=324) ng/mL Acetaminophen (10-30) mcg/mL Ur Barbiturates Screen Negative (Azszyr=665) ng/mL Ur Phencyclidine Scrn Negative (Cutoff=25) ng/mL Ur Amphetamines Screen Negative (Gdmhuo=4326) ng/mL U Benzodiazepines Scrn Negative (Unwfnp=823) ng/mL Urine Cocaine Screen Positive H (Cutoff= 300) ng/mL U Marijuana (THC) Screen Positive H (Cutoff = 50) ng/mL Ethyl Alcohol (0-10) mg/dL 07/04/17 Range/Units 00:58 WBC (4.3-11.1) K/mcL RBC (4.19-5.50) M/mcL Hgb (12.9-16.9) g/dL Hct (37.5-50.1) % MCV (83.0-100.0) fL MCH (28.0-33.3) pg MCHC (31.6-35.5) g/dL RDW (11.5-14.5) % Plt Count (140-400) K/mcL MPV (9.4-12.4) fL Immature Gran % (0-4) % Seg Neutrophils % % Lymphocytes % % Monocytes % % Eosinophils % % Basophils % % Neutrophils # (1.6-8.9) K/mcL Lymphocytes # (0.6-4.6) K/mcL Monocytes # (0.0-1.3) K/mcL Eosinophils # (0.0-0.6) K/mcL Basophils # (0.0-0.2) K/mcL Sodium 141 (136-145) mEq/L Potassium 3.7 (3.5-4.5) mEq/L Chloride 108 (98-109) mEq/L Carbon Dioxide 25 (19-29) mEq/L BUN 8 (8-26) mg/dL Creatinine 0.65 L (0.72-1.25) mg/dL Est GFR ( Amer) > 60 (> 60) Est GFR (Non-Af Amer) > 60 (> 60) BUN/Creatinine Ratio 12 (6-26) Glucose 120 H (70-99) mg/dL Calculated Osmolality 292 (280-300) Calcium 8.6 (8.6-10.8) mg/dL Total Bilirubin 0.9 (0.2-1.2) mg/dL Direct Bilirubin 0.3 (0.0-0.5) mg/dL Indirect Bilirubin 0.6 (0.0-1.2) mg/dL AST 34 (5-34) Units/L ALT 100 H (0-55) Units/L Alkaline Phosphatase 101 (38-126) Units/L Serum Total Protein 6.2 (6.0-8.3) g/dL Albumin 3.0 L (3.5-5.0) g/dL Globulin 3.2 (2.4-3.5) g/dL Albumin/Globulin Ratio 0.9 L (1.1-2.2) Urine Color (Yellow) Urine Clarity (Clear) Urine pH (5.0-8.0) pH Units Ur Specific [place] (1.010-1.025) Urine Protein (Neg-Trace) mg/dL Urine Glucose (UA) (Normal) mg/dL Urine Ketones (Negative) mg/dL Urine Blood (Negative) Urine Nitrite (Negative) Urine Bilirubin (Negative) Urine Urobilinogen (Normal) mg/dL Ur Leukocyte Esterase (Negative) Urine Microscopic RBC (0-3) per hpf Urine Microscopic WBC (0-3) per hpf Ur Squamous Epith Cells (None-Few) per lpf Urine Bacteria (None-Few) per hpf Hyaline Casts (None-Few) per lpf Salicylates < 5.0 L (15-30) mg/dL Urine Opiates Screen (Xocuir=897) ng/mL Acetaminophen < 1.0 L (10-30) mcg/mL Ur Barbiturates Screen (Izxzwu=914) ng/mL Ur Phencyclidine Scrn (Cutoff=25) ng/mL Ur Amphetamines Screen (Nssiti=6706) ng/mL U Benzodiazepines Scrn (Xuerim=990) ng/mL Urine Cocaine Screen (Cutoff= 300) ng/mL U Marijuana (THC) Screen (Cutoff = 50) ng/mL Ethyl Alcohol < 10 (0-10) mg/dL Psychiatric Medical Clearance - Medical Clearance Checklist Medical History: Flexor tenosynovitis of finger (Chronic) Confusion (Acute) Depression (Acute) Hematuria (Acute) Bipolar disorder (Chronic) Tobacco abuse (Acute) Cellulitis of finger of right hand (Acute) Flexor tenosynovitis of finger (Acute) Abscess (Acute) Cellulitis (Acute) DVT prophylaxis (Acute) Anxiety (Acute) Alcohol withdrawal (Acute) Bronchitis (Inactive) Cellulitis of ring finger (Inactive) Diarrhea (Inactive) Drug overdose (Inactive) Encounter for medication refill (Inactive) Finger infection (Inactive) Nausea and vomiting (Inactive) No Social History Section defined Current Vitals: Last Vital Signs Temp 98 F 07/04/17 05:10 Pulse 72 07/04/17 02:01 Resp 18 07/04/17 05:10 BP 124/72 07/04/17 05:10 Pulse Ox 97 07/04/17 02:01 Psychiatric Lab Panel: Drug Levels and Toxicity 07/03/17 07/04/17 23:22 00:58 Urine Opiates Screen Positive H Acetaminophen < 1.0 L Ur Barbiturates Screen Negative Ur Phencyclidine Scrn Negative Ur Amphetamines Screen Negative U Benzodiazepines Scrn Negative Urine Cocaine Screen Positive H U Marijuana (THC) Screen Positive H Ethyl Alcohol < 10 Abnormal Labs: Abnormal lab results Creatinine 0.65 mg/dL (0.72-1.25) L 07/04/17 00:58 Glucose 120 mg/dL (70-99) H 07/04/17 00:58 ALT 100 Units/L (0-55) H 07/04/17 00:58 Albumin 3.0 g/dL (3.5-5.0) L 07/04/17 00:58 Albumin/Globulin Ratio 0.9 (1.1-2.2) L 07/04/17 00:58 Urine Microscopic RBC 5-15 per hpf (0-3) H 07/03/17 23:22 Salicylates < 5.0 mg/dL (15-30) L 07/04/17 00:58 Urine Opiates Screen Positive ng/mL (Dkfkbr=090) H 07/03/17 23:22 Acetaminophen < 1.0 mcg/mL (10-30) L 07/04/17 00:58 Urine Cocaine Screen Positive ng/mL (Cutoff= 300) H 07/03/17 23:22 U Marijuana (THC) Screen Positive ng/mL (Cutoff = 50) H 07/03/17 23:22 Statement of Medical Clearance: I have evaluated the patient, reviewed diagnostic information, and certify that the patient's medical condition is sufficiently stable that transfer to the psychiatric unit does not pose a significant risk of deterioration. Attestation Statement - Attestation Attestation: I, Nam Marroquin MD, personally evaluated this patient and discussed their management with the resident physician. I reviewed the resident's note and agree with the documented findings, medical decision making, and plan of care. 26-year-old male presents to the emergency department complaining of suicidal ideation. Patient states that he has been staying with a friend and has not had his medications for the past several days. On examination patient is a well-developed well-nourished well-appearing male in no acute distress. He is alert and oriented 3. There is no cyanosis or diaphoresis. Chest is nontender to palpation. Breath sounds are clear and equal bilaterally. Heart regular rate and rhythm. Abdomen soft and nontender with normal bowel sounds. No gross focal neurological deficits. Labs reviewed. [address] psychiatry service was consulted and evaluated patient in the emergency department and patient is being admitted to the [address] psychiatric unit.
[2017-07-03 23:36] LABS: Bilirubin,Urine Negative (Negative); Blood,Urine Negative (Negative); Clarity,Urine Clear (Clear); Color,Urine Yellow (Yellow); Glucose,Urine (UA) Normal (Normal); Ketones,Urine Negative (Negative); Leukocyte Esterase,Urine Negative (Negative); Nitrite,Urine Negative (Negative); PH,Urine 7.5 pH Units (5.0-8.0); Protein,Urine Trace mg/dL (Neg-Trace); Specific Gravity,Urine 1.025 (1.010-1.025); Urobilinogen,Urine Normal (Normal)
[2017-07-03 23:38] LABS: Bacteria,Urine None Seen per hpf (None-Few); Hyaline Casts,Urine None Seen per lpf (None-Few); Squamous Epithelial Cell,Urine Few per lpf (None-Few); WBC,Urine 0-3 per hpf (0-3)
[2017-07-03 23:41] LABS: Amphetamine Screen,Urine Negative ng/mL (Cutoff=1000); Barbiturate Screen,Urine Negative ng/mL (Cutoff=200); Benzodiazepines Screen,Urine Negative ng/mL (Cutoff=200); Cannabinoid Screen,Urine Positive ng/mL (Cutoff = 50); Cocaine Screen,Urine Positive ng/mL (Cutoff= 300); Opiate Screen,Urine Positive ng/mL (Cutoff=300); Phencyclidine Screen,Urine Negative ng/mL (Cutoff=25)
[2017-07-04 01:05] LABS: Basophils % 0.5 %; Eosinophils # 0.1 K/mcL (0.0-0.6); Eosinophils % 1.2 %; Hematocrit 41.4 % (37.5-50.1); Hemoglobin 13.6 g/dL (12.9-16.9); Immature Granulocytes % 0.2 % (0-4); Lymphocytes # 1.5 K/mcL (0.6-4.6); Lymphocytes % 19.2 %; Mean Corpuscular HGB Conc 32.9 g/dL (31.6-35.5); Mean Corpuscular Hemoglobin 30.4 pg (28.0-33.3); Mean Corpuscular Volume 92.6 fL (83.0-100.0); Mean Platelet Volume 9.9 fL (9.4-12.4); Monocytes # 0.6 K/mcL (0.0-1.3); Neutrophils # 5.7 K/mcL (1.6-8.9); Platelet Count 312 K/mcL (140-400); Red Blood Count 4.47 M/mcL (4.19-5.50); Red Cell Distribution Width 13.8 % (11.5-14.5); Segmented Neutrophils % 70.9 %
[2017-07-04 01:20] LABS: Alanine Aminotransferase 100 Units/L (0-55); Albumin/Globulin Ratio 0.9 (1.1-2.2); Aspartate Amino Transferase 34 Units/L (5-34); BUN/Creatinine Ratio 12 (6-26); Bilirubin,Direct 0.3 mg/dL (0.0-0.5); Bilirubin,Indirect 0.6 mg/dL (0.0-1.2); Bilirubin,Total 0.9 mg/dL (0.2-1.2); Blood Urea Nitrogen 8 mg/dL (8-26); Calcium 8.6 mg/dL (8.6-10.8); Carbon Dioxide 25 mEq/L (19-29); Chloride 108 mEq/L (98-109); Globulin 3.2 g/dL (2.4-3.5); Glucose 120 mg/dL (70-99); Osmolality,Calculated 292 (280-300); Potassium 3.7 mEq/L (3.5-4.5); Sodium 141 mEq/L (136-145); Total Protein 6.2 g/dL (6.0-8.3); eGFR For African Americans > 60 (> 60); eGFR For Non-African Americans > 60 (> 60)
[2017-07-04 01:21] LABS: Acetaminophen < 1.0 mcg/mL (10-30); Ethanol < 10 mg/dL (0-10)
[2017-07-04 01:22] LABS: Salicylate < 5.0 mg/dL (15-30)
[2017-07-04 01:30] LABS: Alkaline Phosphatase 101 Units/L (38-126)
[2017-07-04] MEDS ORDERED: *HR* LORazepam 1 MG TABLET PO PRN (05:21)
[2017-07-04] MEDS ORDERED: Mag Hydrox/Al Hydrox/Simeth 30 ML UDC PO PRN (05:21)
[2017-07-04] MEDS ORDERED: MOM Conc 10 ML UD.LIQ PO PRN (05:21)
[2017-07-04] MEDS ORDERED: *HR* LORazepam 2 MG/ML VIAL IM PRN (05:21)
[2017-07-04] MEDS ORDERED: Haloperidol Lactate 5 MG/ML VIAL IM PRN (05:21)
--- NOTE | 2017-07-04 11:22 | Psychiatry History & Physical ---
Date of Encounter: 07/04/17 Time of Encounter: 11:17 History of Present Illness Patient Stated Chief Complaint: suicidal ideation Medicare Admission Attestation: For traditional Medicare patients the provided hospital inpatient services are reasonable and necessary and in the case of services not specified as inpatient -only under 42 CFR 419.22 (n), that they are appropriately provided as inpatient services in accordance 42 CFR 412.3. For Critical Access Hospital the patient may reasonably be expected to be discharged or transferred to a hospital within 96 hours after admission to the Critical Access Hospital. Admitted From: Home Plans for Post Hospital Care: Home History of Present Illness: Mr. Segura is a 26 year old male who was admitted secondary to SI. Claims he is diagnosed with Bipolar Disorder and linked with SPV. States he normally takes Celexa and Seroquel and that these meds work for him. Reports he has been out of these meds for four days and wants restarted on them. Denies any physical health problems but states he feels unwell this morning. Tox screen positive for THC, Cocaine, and Opiates. Client states he was at a alliance party the other night and did all three. Denies heavy alcohol use. May not feel well due to drugs leaving system. Per nursing staff he is homeless and staying with friends. No real supports. Recent job loss. Past Med Surg Social Fam HX - Past Medical History Medical history: arthritis - Past Psychiatric History Psychiatric history: Reports: bipolar, previous psychiatric hospitalization Family psychiatric history: Unknown Family History of Suicide: Unknown - Past Surgical History Surgical History: non-contributory - Social History Smoking Status: Current every day smoker Smokeless Tobacco Status: No Alcohol use: occasionally Drug use: marijuana - Family History Mother Adopted: [place]: Tia Segura Age: 55 Family Member Ethnicity: Non- Living Status: Still Living Hx Family Cardiac Disorders: No Hx Family Respiratory Disorders: No Hx Family Cancer: No Hx Family GI Disorders: No Hx Family Genitourinary Disorders: No Hx Family Endocrine Disorder: No Hx Family Musculoskeletal Disorders: No Hx Family Neuromuscular Disorders: No Hx Family Neurologic Disorders: No Hx Family HEENT Disorders: No Hx Family Autoimmune Disorders: No Hx Family Reproductive Disorders: No Hx Family Psychosocial Disorders: No Hx Family Medical Disorders: No Father Living Status: Hx Family Cardiac Disorders: Yes Medications & Allergies Quetiapine Fumarate [Seroquel] 100 mg PO HS #30 tablet 02/03/17 [Rx] Citalopram Hydrobromide [Citalopram HBr] 40 mg PO DAILY 02/05/17 [History] Gabapentin [Neurontin] 300 mg PO TID 07/04/17 [History] 3 Allergy/AdvReac Type Severity Reaction Status Date / Time No Known Allergies Allergy Verified 07/04/17 06:59 Review of Systems Constitutional: Denies: fever, chills, weakness, weight change Eyes: Denies: eye pain, vision change Ears, Nose, Throat: Denies: ear pain, throat pain, dental pain, hearing loss, congestion Cardiovascular: Denies: chest pain, palpitations, dyspnea on exertion Respiratory: Denies: cough, dyspnea, wheezes Gastrointestinal: Denies: abdominal pain, nausea, vomiting, diarrhea, constipation Genitourinary male: Denies: urgency, dysuria, frequency, genital lesions Genitourinary female: Denies: urgency, dysuria, frequency, abnormal menses, dyspareunia Musculoskeletal: Denies: joint swelling, joint pain Integumentary: Denies: rash, lesions, pruritus Neurological: Denies: headache, weakness, numbness, memory loss Endocrine: Denies: fatigue, heat or cold intolerance Hematologic/Lymphatic: Denies: easy bruising, lymphadenopathy Allergic/Immunologic: Denies: urticaria, itchy eyes Mental Status Exam Patient orientation: Yes Person, Yes Time, Yes Place Level of alertness: Alert Patient appearance: Disheveled Behavior: calm, cooperative Psychomotor activity: Normal Eye contact: Maintains Eye Contact Mood description: Depressed Affect description: congruent with mood Speech pattern: Normal rate, Normal rhythm, Normal tone Speech volume: Normal Thought process: Linear Thought content: Yes Suicidal ideation, No Homicidal ideation, No Overt delusions Perceptual disturbances: No Auditory hallucinations, No Visual hallucinations Attention span: Capable of Focused Attention Memory description: Grossly Intact Patient reliability: Questionable Historian Intelligence estimate: Average Judgment: Limited Insight: Partial Exam - HEENT Head exam IM: Present: atraumatic Eye exam IM: Present: EOMI ENT exam IM: Present: mucous membranes moist - Neurological Neurological exam IM: Present: alert, oriented X3 - Respiratory Respiratory exam IM: Present: CTAB - GI/Abdominal GI/Abdominal exam IM: Present: normal bowel sounds - Extremities Extremities exam IM: Present: full ROM - Skin Skin exam IM: Present: normal color Results - Vital Signs Vital signs: Temp Pulse Resp BP Pulse Ox 98 F 61 16 121/87 97 07/04/17 09:00 07/04/17 09:00 07/04/17 09:00 07/04/17 09:00 07/04/17 02:01 - Labs Labs: Laboratory Last Values WBC 8.0 K/mcL (4.3-11.1) 07/04/17 00:58 RBC 4.47 M/mcL (4.19-5.50) 07/04/17 00:58 Hgb 13.6 g/dL (12.9-16.9) 07/04/17 00:58 Hct 41.4 % (37.5-50.1) 07/04/17 00:58 MCV 92.6 fL (83.0-100.0) 07/04/17 00:58 MCH 30.4 pg (28.0-33.3) 07/04/17 00:58 MCHC 32.9 g/dL (31.6-35.5) 07/04/17 00:58 RDW 13.8 % (11.5-14.5) 07/04/17 00:58 Plt Count 312 K/mcL (140-400) 07/04/17 00:58 MPV 9.9 fL (9.4-12.4) 07/04/17 00:58 Immature Gran % 0.2 % (0-4) 07/04/17 00:58 Seg Neutrophils % 70.9 % 07/04/17 00:58 Lymphocytes % 19.2 % 07/04/17 00:58 Monocytes % 8.0 % 07/04/17 00:58 Eosinophils % 1.2 % 07/04/17 00:58 Basophils % 0.5 % 07/04/17 00:58 Neutrophils # 5.7 K/mcL (1.6-8.9) 07/04/17 00:58 Lymphocytes # 1.5 K/mcL (0.6-4.6) 07/04/17 00:58 Monocytes # 0.6 K/mcL (0.0-1.3) 07/04/17 00:58 Eosinophils # 0.1 K/mcL (0.0-0.6) 07/04/17 00:58 Basophils # 0.0 K/mcL (0.0-0.2) 07/04/17 00:58 Sodium 141 mEq/L (136-145) 07/04/17 00:58 Potassium 3.7 mEq/L (3.5-4.5) 07/04/17 00:58 Chloride 108 mEq/L (98-109) 07/04/17 00:58 Carbon Dioxide 25 mEq/L (19-29) 07/04/17 00:58 BUN 8 mg/dL (8-26) 07/04/17 00:58 Creatinine 0.65 mg/dL (0.72-1.25) L 07/04/17 00:58 Est GFR ( Amer) > 60 (> 60) 07/04/17 00:58 Est GFR (Non-Af Amer) > 60 (> 60) 07/04/17 00:58 BUN/Creatinine Ratio 12 (6-26) 07/04/17 00:58 Glucose 120 mg/dL (70-99) H 07/04/17 00:58 Calculated Osmolality 292 (280-300) 07/04/17 00:58 Calcium 8.6 mg/dL (8.6-10.8) 07/04/17 00:58 Total Bilirubin 0.9 mg/dL (0.2-1.2) 07/04/17 00:58 Direct Bilirubin 0.3 mg/dL (0.0-0.5) 07/04/17 00:58 Indirect Bilirubin 0.6 mg/dL (0.0-1.2) 07/04/17 00:58 AST 34 Units/L (5-34) 07/04/17 00:58 ALT 100 Units/L (0-55) H 07/04/17 00:58 Alkaline Phosphatase 101 Units/L (38-126) 07/04/17 00:58 Serum Total Protein 6.2 g/dL (6.0-8.3) 07/04/17 00:58 Albumin 3.0 g/dL (3.5-5.0) L 07/04/17 00:58 Globulin 3.2 g/dL (2.4-3.5) 07/04/17 00:58 Albumin/Globulin Ratio 0.9 (1.1-2.2) L 07/04/17 00:58 Urine Color Yellow (Yellow) 07/03/17 23:22 Urine Clarity Clear (Clear) 07/03/17 23:22 Urine pH 7.5 pH Units (5.0-8.0) 07/03/17 23:22 Ur Specific [place] 1.025 (1.010-1.025) 07/03/17 23:22 Urine Protein Trace mg/dL (Neg-Trace) 07/03/17 23:22 Urine Glucose (UA) Normal mg/dL (Normal) 07/03/17 23:22 Urine Ketones Negative mg/dL (Negative) 07/03/17 23:22 Urine Blood Negative (Negative) 07/03/17 23:22 Urine Nitrite Negative (Negative) 07/03/17 23:22 Urine Bilirubin Negative (Negative) 07/03/17 23:22 Urine Urobilinogen Normal mg/dL (Normal) 07/03/17 23:22 Ur Leukocyte Esterase Negative (Negative) 07/03/17 23:22 Urine Microscopic RBC 5-15 per hpf (0-3) H 07/03/17 23:22 Urine Microscopic WBC 0-3 per hpf (0-3) 07/03/17 23:22 Ur Squamous Epith Cells Few per lpf (None-Few) 07/03/17 23:22 Urine Bacteria None Seen per hpf (None-Few) 07/03/17 23:22 Hyaline Casts None Seen per lpf (None-Few) 07/03/17 23:22 Salicylates < 5.0 mg/dL (15-30) L 07/04/17 00:58 Urine Opiates Screen Positive ng/mL (Cbavyr=204) H 07/03/17 23:22 Acetaminophen < 1.0 mcg/mL (10-30) L 07/04/17 00:58 Ur Barbiturates Screen Negative ng/mL (Xleztr=260) 07/03/17 23:22 Ur Phencyclidine Scrn Negative ng/mL (Cutoff=25) 07/03/17 23:22 Ur Amphetamines Screen Negative ng/mL (Fegupk=8511) 07/03/17 23:22 U Benzodiazepines Scrn Negative ng/mL (Vkfhff=650) 07/03/17 23:22 Urine Cocaine Screen Positive ng/mL (Cutoff= 300) H 07/03/17 23:22 U Marijuana (THC) Screen Positive ng/mL (Cutoff = 50) H 11/23/17 23:22 Ethyl Alcohol < 10 mg/dL (0-10) 07/04/17 00:58 Assessment and Plan (1) Bipolar disorder Current visit: No Status: Chronic Plan: Admit inpatient for safety and stabilization, Close observation, Suicide Precautions per unit protocol, Encourage participation in unit milieu, Group Therapy, Monitor sleep, Monitor appetite Risks, benefits, side effects, alternatives discussed w/pt: Yes Patient agreeable to treatment: Yes Plans for Post Hospital Care: Home Estimated Length of Stay (Days): 4 Qualifiers: Active/Remission status: currently active Current bipolar episode type: depressed Current episode severity: moderate Qualified Code(s): F31.32 - Bipolar disorder, current episode depressed, moderate
[2017-07-04] MEDS: hydrOXYzine pamoate 25 MG CAPSULE PO PRN ×3 (12:00→21:52)
[2017-07-04] MEDS: Nicotine 2 MG GUM BC PRN ×4 (12:00→22:50)
[2017-07-04] MEDS: Acetaminophen 325 MG TABLET PO PRN ×2 (15:37→20:07)
[2017-07-04] MEDS ORDERED: Ondansetron Oral Soln 2 MG/2.5 ML ORAL.SYG PO ONE (22:38)
[2017-07-04] MEDS ORDERED: cloNIDine HCl 0.1 MG TABLET PO ONE (22:40)
[2017-07-04] MEDS ORDERED: Ondansetron ODT 4 MG TAB.RAPDIS SL ONE (22:53)
[2017-07-05] MEDS: hydrOXYzine pamoate 25 MG CAPSULE PO PRN ×3 (09:03→20:32)
--- NOTE | 2017-07-05 10:30 | Psychiatry Progress Note ---
Date of Encounter: 07/05/17 Time of Encounter: 10:27 Subjective Interval history: Still feeling unwell. Vomited twice yesterday, Likely withdrawing from opiates. Vital signs have been stable but he required Clonidine and Zofran to feel better. Still nauseated today but improving. Started on Seroquel and Celexa but may not have received much benefit from them secondary to his GI issues. Mood has not improved any which is not surprising. Will likely take a couple of days to finish withdrawing and for meds to take effect. No behavior issues. Generally pleasant. Review of Systems Constitutional: Denies: fever, chills, weakness, weight change Eyes: Denies: eye pain, vision change Ears, Nose, Throat: Denies: ear pain, throat pain, dental pain, hearing loss, congestion Cardiovascular: Denies: chest pain, palpitations, dyspnea on exertion Respiratory: Denies: cough, dyspnea, wheezes Gastrointestinal: Reports: nausea, vomiting Musculoskeletal: Reports: myalgia Neurological: Denies: headache, weakness, numbness, memory loss Objective: Exam Patient orientation: Yes Person, Yes Time, Yes Place Level of alertness: Alert Patient appearance: Disheveled Behavior: calm, cooperative Psychomotor activity: Normal Eye contact: Minimal Contact Mood description: Depressed Affect description: congruent with mood Speech pattern: Normal rate, Normal rhythm, Normal tone Speech volume: Normal Thought process: Linear Thought content: Yes Suicidal ideation, No Homicidal ideation, No Overt delusions Perceptual disturbances: No Auditory hallucinations, No Visual hallucinations Judgment: Limited Insight: Partial Results - Vital Signs Vital Signs: Temp Pulse Resp BP Pulse Ox 97.4 F L 69 16 135/77 97 07/04/17 20:23 07/04/17 20:23 07/04/17 20:23 07/04/17 20:23 07/04/17 02:01 Assessment and Plan (1) Bipolar disorder Current visit: No Status: Chronic Plan: Continue hospitalization, Close observation, Suicide Precautions per unit protocol, Encourage participation in unit milieu, Group Therapy, Monitor sleep, Monitor appetite Risks, benefits, side effects, alternatives discussed w/pt: Yes Patient agreeable to treatment: Yes Qualifiers: Active/Remission status: currently active Current bipolar episode type: depressed Current episode severity: moderate Qualified Code(s): F31.32 - Bipolar disorder, current episode depressed, moderate Consult Discharge Plan - Plan Referrals: NONE,PCP [Primary Care Provider] -
[2017-07-05] MEDS ORDERED: cloNIDine HCl 0.1 MG TABLET PO PRN (10:32)
[2017-07-05] MEDS: Ondansetron ODT 4 MG TAB.RAPDIS SL PRN ×2 (12:37→20:32)
[2017-07-05] MEDS: Nicotine 2 MG GUM BC PRN ×3 (12:37→20:33)
[2017-07-05] MEDS: cloNIDine HCl 0.1 MG TABLET PO PRN (20:32)
[2017-07-05] MEDS: Acetaminophen 325 MG TABLET PO PRN (20:33)
[2017-07-06] MEDS: hydrOXYzine pamoate 25 MG CAPSULE PO PRN ×3 (09:04→21:29)
--- NOTE | 2017-07-06 09:42 | Psychiatry Progress Note ---
Date of Encounter: 07/06/17 Time of Encounter: 09:35 Subjective Interval history: Client reports he is feeling better. Acute withdrawals have passed. However, he is still rather med seeking. Asking for prns. Also craving food. Tries to take extra snacks. Not really participating in treatment groups. Spends most of day in his room. Client did say today that Wellbutrin used to be part of his med regimen in the past and that it really helped him. Discussed how Wellbutrin might give him the extra motivation he is lacking right now but that it can lower his seizure risk and that it can be dangerous if his seizure risk is already heightened by substance intoxication/withdrawal. Client expressed understanding and indicated he had no trouble with it before and that he intends to stay away from substances of abuse. Will go ahead and order Wellbutrin today. Anticipate he will be ready for discharge tomorrow or soon after. SI has lessened. Review of Systems Constitutional: Denies: fever, chills, weakness, weight change Eyes: Denies: eye pain, vision change Ears, Nose, Throat: Denies: ear pain, throat pain, dental pain, hearing loss, congestion Cardiovascular: Denies: chest pain, palpitations, dyspnea on exertion Respiratory: Denies: cough, dyspnea, wheezes Gastrointestinal: Denies: abdominal pain, nausea, vomiting, diarrhea, constipation Musculoskeletal: Denies: joint swelling, joint pain Neurological: Denies: headache, weakness, numbness, memory loss Objective: Exam Patient orientation: Yes Person, Yes Time, Yes Place Level of alertness: Alert Patient appearance: Disheveled Behavior: calm, cooperative Psychomotor activity: Normal Eye contact: Maintains Eye Contact Mood description: Depressed Affect description: congruent with mood Speech pattern: Normal rate, Normal rhythm, Normal tone Speech volume: Normal Thought process: Linear Thought content: Yes Suicidal ideation, No Homicidal ideation, No Overt delusions Perceptual disturbances: No Auditory hallucinations, No Visual hallucinations Judgment: Limited Insight: Partial Results - Vital Signs Vital Signs: Temp Pulse Resp BP Pulse Ox 97.8 F 78 16 104/66 97 07/06/17 08:48 07/06/17 08:48 07/06/17 08:48 07/06/17 08:48 07/04/17 02:01 Assessment and Plan (1) Bipolar disorder Current visit: No Status: Chronic Plan: Continue hospitalization, Close observation, Suicide Precautions per unit protocol, Encourage participation in unit milieu, Group Therapy, Monitor sleep, Monitor appetite Risks, benefits, side effects, alternatives discussed w/pt: Yes Patient agreeable to treatment: Yes Qualifiers: Active/Remission status: currently active Current bipolar episode type: depressed Current episode severity: moderate Qualified Code(s): F31.32 - Bipolar disorder, current episode depressed, moderate Consult Discharge Plan - Plan Referrals: NONE,PCP [Primary Care Provider] -
[2017-07-06] MEDS: BuPROPion XL (24 HR) 150 MG TABLET PO SCH (10:47)
[2017-07-06] MEDS: Nicotine 2 MG GUM BC PRN ×3 (10:53→21:30)
[2017-07-06] MEDS: Acetaminophen 325 MG TABLET PO PRN (21:23)
[2017-07-06] MEDS: Ondansetron ODT 4 MG TAB.RAPDIS SL PRN (21:27)
[2017-07-06] MEDS: cloNIDine HCl 0.1 MG TABLET PO PRN (21:28)
[2017-07-06] MEDS ORDERED: traZODone 50 MG TABLET PO ONE (22:52)
[2017-07-07] MEDS: Nicotine 2 MG GUM BC PRN ×3 (07:34→12:44)
[2017-07-07] MEDS: BuPROPion XL (24 HR) 150 MG TABLET PO SCH (08:08)
[2017-07-07] MEDS ORDERED: BuPROPion XL (24 HR) 150 MG TABLET PO SCH (09:00)
[2017-07-07] MEDS: cloNIDine HCl 0.1 MG TABLET PO PRN (10:03)
--- NOTE | 2017-07-07 11:28 | Discharge Summary ---
Date of Encounter: 07/07/17 Time of Encounter: 11:26 Diagnosis - Discharge Diagnosis (1) Bipolar disorder Status: Chronic Qualifiers: Active/Remission status: currently active Current bipolar episode type: depressed Current episode severity: moderate Qualified Code(s): F31.32 - Bipolar disorder, current episode depressed, moderate Medications - Discharge Medications Prescriptions: BuPROPion XL (24 HR) [Wellbutrin Xl] 150 mg PO DAILY #30 tab.er.24h Citalopram [CeleXA] 40 mg PO DAILY #60 tablet Quetiapine Fumarate [Seroquel] 100 mg PO HS #30 tablet Gabapentin [Neurontin] 300 mg PO TID 07/04/17 [History] BuPROPion XL (24 HR) [Wellbutrin Xl] 150 mg PO DAILY #30 tab.er.24h 07/07/17 [Rx ] Citalopram [CeleXA] 40 mg PO DAILY #60 tablet 07/07/17 [Rx] Quetiapine Fumarate [Seroquel] 100 mg PO HS #30 tablet 07/07/17 [Rx] cloNIDine HCl [CloNIDine HCl] 0.1 mg PO TID PRN tablet 07/07/17 [Rx] 3 Allergy/AdvReac Type Severity Reaction Status Date / Time No Known Allergies Allergy Verified 07/04/17 06:59 Provider Date of admission: 07/04/17 05:05 Primary care physician: PCP NONE Discharging clinician: Josse Kelsey Assessment and Plan - Follow up Plan Follow up with: NONE,PCP [Primary Care Provider] - Functional capacity at discharge: independent ambulation Overall status at discharge: Stable Disposition: Home, Self-Care Hospital Course Hospital course: Mr. Segura is a 26 year old male admitted for depression and suicidal ideation and noncompliance with medication. For details of the admission please see H&P On the units patient medication were adjusted, Wellbutrin XL 150 mg was added to her Seroquel and Celexa. Patient responded well to this combination and reported improved sleep denied any side effects or problem was anxiety. He attended group and participated in activities. He denied any suicidal ideation. His discharge medicines were completed by social work. On discharge he was medically stable tolerated the medication without any side effects and motivated to stay off drugs and opiates and THC and cocaine. Discharge in stable condition - Time Spent with Patient Total time spent providing and/or coordinating discharge services: Greater than 30 minutes Quality - Multiple Antipsychotics Patient discharged on 2 or more antipsychotic medications: No Procedures - Procedures Procedures: Medication Management, Crisis Stabilization, Supportive Therapy, Group Therapy, Psychoeducational Therapy Mental Status Exam - Mental Status Exam Patient orientation: Yes Person, Yes Time, Yes Place Level of alertness: Alert Patient appearance: Appropriate, Well Groomed Behavior: calm, cooperative Psychomotor activity: Normal Eye contact: Maintains Eye Contact Mood description: Euthymic/stable Affect description: congruent with mood, full range Speech pattern: Normal rate, Normal rhythm, Normal tone Speech Volume: Normal Thought process: Linear, Goal Oriented Thought Content: No Suicidal ideation, No Homicidal ideation, No Overt delusions Perceptual Disturbances: No Auditory hallucinations, No Visual hallucinations Judgment: Limited Insight: Partial
[2017-07-07 11:48] VITALS: BP 100/66
== END 2017-07-07 14:15 | disposition home or self-care (01) | DRG 753 ==
LOC: EMEROO 22:56 → SUATTDRO 07-04 05:05 → 1ANU 07-04 05:05
PROVIDERS: ADMIT Psychiatry & Neurology Psychiatry; ATTEND Psychiatry & Neurology Psychiatry

== ENCOUNTER 2019-06-27 09:35 | Observation (INO) ==
[2019-06-27] MEDS ORDERED: Naloxone 0.4 MG/ML INJ IM ONE (09:41)
[2019-06-27 10:37] LABS: BUN/Creatinine Ratio 16 (6-26); Blood Urea Nitrogen 15 mg/dL (6-20); Calcium 9.4 mg/dL (8.6-10.3); Carbon Dioxide 23 mEq/L (23-29); Chloride 109 mEq/L (98-107); Ethanol < 10 mg/dL (Less than 10); Glucose 83 mg/dL (70-105); Osmolality,Calculated 296 (280-300); Sodium 143 mEq/L (136-145); eGFR For African Americans > 60 (> 60); eGFR For Non-African Americans > 60 (> 60)
[2019-06-27] MEDS ORDERED: 0.9 % Sodium Chloride 1,000 ML IVC ONE (10:50)
[2019-06-27] MEDS ORDERED: Naloxone 0.4 MG/ML INJ IVP ONE (10:50)
[2019-06-27 11:33] LABS: Basophils # 0.1 K/mcL (0.0-0.2); Basophils % 0.5 %; Eosinophils % 0.4 %; Hematocrit 39.4 % (37.5-50.1); Hemoglobin 13.4 g/dL (12.9-16.9); Immature Granulocytes % 0.3 % (0-4); Lymphocytes # 1.2 K/mcL (0.6-4.6); Lymphocytes % 12.6 %; Mean Corpuscular Hemoglobin 31.1 pg (28.0-33.3); Mean Corpuscular Volume 91.4 fL (83.0-100.0); Mean Platelet Volume 9.8 fL (9.4-12.4); Monocytes # 0.7 K/mcL (0.0-1.3); Monocytes % 7.4 %; Neutrophils # 7.7 K/mcL (1.6-8.9); Platelet Count 292 K/mcL (140-400); Red Blood Count 4.31 M/mcL (4.19-5.50); Red Cell Distribution Width 12.6 % (11.5-14.5); Segmented Neutrophils % 78.8 %; White Blood Count 9.8 K/mcL (4.3-11.1)
[2019-06-27 12:12] LABS: Bilirubin,Urine Small (Negative); Blood,Urine Large (Negative); Clarity,Urine Cloudy (Clear); Color,Urine Dark Yellow (Yellow); Glucose,Urine (UA) Normal (Normal); Ketones,Urine 15 mg/dL (Negative); Leukocyte Esterase,Urine Trace (Negative); Nitrite,Urine Negative (Negative); PH,Urine 5.5 pH Units (5.0-8.0); Protein,Urine 100 mg/dL (Neg-Trace); Specific Gravity,Urine 1.025 (1.010-1.025); Urobilinogen,Urine Normal (Normal)
[2019-06-27 12:14] LABS: Bacteria,Urine None Seen per hpf (None-Few); RBC,Urine 30-50 per hpf (0-3); Squamous Epithelial Cell,Urine Many per lpf (None-Few); WBC,Urine 15-30 per hpf (0-3)
[2019-06-27 12:19] LABS: Amphetamine Screen,Urine Positive ng/mL (Cutoff=1000); Barbiturate Screen,Urine Negative ng/mL (Cutoff=200); Benzodiazepines Screen,Urine Positive ng/mL (Cutoff=200); Cannabinoid Screen,Urine Positive ng/mL (Cutoff = 50); Cocaine Screen,Urine Negative ng/mL (Cutoff= 300); Opiate Screen,Urine Negative ng/mL (Cutoff=300); Phencyclidine Screen,Urine Negative ng/mL (Cutoff=25)
[2019-06-27] MEDS ORDERED: Ondansetron 4 MG/2 ML VIAL IVP PRN (13:07)
[2019-06-27] MEDS ORDERED: Naloxone 0.4 MG/ML INJ IVP PRN (13:07)
[2019-06-27] MEDS ORDERED: Haloperidol Lactate 5 MG/ML VIAL IVP PRN (13:09)
[2019-06-27] MEDS ORDERED: Potassium Chloride 40 MEQ, Lidocaine 1% 2 ML in 0.9 % Sodium Chloride 500 ML IVPB ONE (13:28)
[2019-06-27] MEDS: Ringers Solution, Lactated 1,000 ML IVC SCH (15:00)
[2019-06-28] MEDS: Ringers Solution, Lactated 1,000 ML IVC SCH (02:38)
[2019-06-28 06:41] LABS: Basophils % 0.4 %; Eosinophils # 0.2 K/mcL (0.0-0.6); Eosinophils % 2.7 %; Hematocrit 37.9 % (37.5-50.1); Hemoglobin 12.4 g/dL (12.9-16.9); Immature Granulocytes % 0.3 % (0-4); Lymphocytes # 1.3 K/mcL (0.6-4.6); Mean Corpuscular HGB Conc 32.7 g/dL (31.6-35.5); Mean Corpuscular Hemoglobin 31.3 pg (28.0-33.3); Mean Corpuscular Volume 95.7 fL (83.0-100.0); Mean Platelet Volume 10.1 fL (9.4-12.4); Monocytes # 0.6 K/mcL (0.0-1.3); Monocytes % 8.7 %; Neutrophils # 4.6 K/mcL (1.6-8.9); Platelet Count 250 K/mcL (140-400); Red Blood Count 3.96 M/mcL (4.19-5.50); Red Cell Distribution Width 13.1 % (11.5-14.5); Segmented Neutrophils % 68.9 %; White Blood Count 6.7 K/mcL (4.3-11.1)
[2019-06-28 07:14] LABS: BUN/Creatinine Ratio 19 (6-26); Blood Urea Nitrogen 13 mg/dL (6-20); Calcium 8.7 mg/dL (8.6-10.3); Carbon Dioxide 25 mEq/L (23-29); Chloride 109 mEq/L (98-107); Glucose 112 mg/dL (70-105); Osmolality,Calculated 297 (280-300); Potassium 3.4 mEq/L (3.5-5.1); Sodium 143 mEq/L (136-145); eGFR For African Americans > 60 (> 60); eGFR For Non-African Americans > 60 (> 60)
[2019-06-28] MEDS: Nicotine 14 MG PATCH.TD24 TD SCH (22:18)
[2019-06-29 06:42] LABS: Hematocrit 37.9 % (37.5-50.1); Hemoglobin 12.5 g/dL (12.9-16.9); Mean Corpuscular Hemoglobin 31.5 pg (28.0-33.3); Mean Corpuscular Volume 95.5 fL (83.0-100.0); Mean Platelet Volume 10.3 fL (9.4-12.4); Platelet Count 242 K/mcL (140-400); Red Blood Count 3.97 M/mcL (4.19-5.50); Red Cell Distribution Width 12.9 % (11.5-14.5); White Blood Count 8.3 K/mcL (4.3-11.1)
[2019-06-29 07:06] LABS: BUN/Creatinine Ratio 19 (6-26); Blood Urea Nitrogen 10 mg/dL (6-20); Calcium 8.3 mg/dL (8.6-10.3); Carbon Dioxide 28 mEq/L (23-29); Chloride 107 mEq/L (98-107); Glucose 112 mg/dL (70-105); Osmolality,Calculated 294 (280-300); Potassium 3.3 mEq/L (3.5-5.1); Sodium 142 mEq/L (136-145); eGFR For African Americans > 60 (> 60); eGFR For Non-African Americans > 60 (> 60)
[2019-06-29] MEDS ORDERED: BUPRENORPHINE NALOXONE SL SCH (09:00)
[2019-06-29] MEDS: Nicotine 14 MG PATCH.TD24 TD SCH (09:19)
[2019-06-29] MEDS: Gabapentin 100 MG CAPSULE PO SCH ×3 (12:20→21:28)
[2019-06-29] MEDS: *HR* Buprenorphine HCl 8 MG TAB.SUBL SL SCH (12:20)
[2019-06-30 01:32] LABS: BUN/Creatinine Ratio 19 (6-26); Blood Urea Nitrogen 13 mg/dL (6-20); Calcium 8.8 mg/dL (8.6-10.3); Carbon Dioxide 27 mEq/L (23-29); Chloride 108 mEq/L (98-107); Glucose 104 mg/dL (70-105); Magnesium 1.8 mg/dL (1.6-2.6); Osmolality,Calculated 292 (280-300); Potassium 3.4 mEq/L (3.5-5.1); Sodium 141 mEq/L (136-145); eGFR For African Americans > 60 (> 60); eGFR For Non-African Americans > 60 (> 60)
[2019-06-30] MEDS: *HR* Buprenorphine HCl 8 MG TAB.SUBL SL SCH (10:15)
[2019-06-30] MEDS: Nicotine 14 MG PATCH.TD24 TD SCH (10:16)
[2019-06-30] MEDS: Gabapentin 100 MG CAPSULE PO SCH (10:16)
[2019-06-30 11:31] VITALS: BP 121/78
== END 2019-06-30 12:49 | disposition home or self-care (01) ==
LOC: 3BNU 09:35 → EMEROOARM 09:35 → 3BNU 13:35
PROVIDERS: ADMIT Internal Medicine; ATTEND Internal Medicine

== ENCOUNTER 2019-10-26 16:34 | Observation (INO) ==
[2019-10-26 17:24] LABS: Basophils % 0.5 %; Eosinophils # 0.4 K/mcL (0.0-0.6); Eosinophils % 5.7 %; Hematocrit 44.5 % (37.5-50.1); Hemoglobin 14.7 g/dL (12.9-16.9); Immature Granulocytes % 0.1 % (0-4); Lymphocytes # 2.3 K/mcL (0.6-4.6); Lymphocytes % 30.2 %; Mean Corpuscular Hemoglobin 30.7 pg (28.0-33.3); Mean Corpuscular Volume 92.9 fL (83.0-100.0); Monocytes # 0.7 K/mcL (0.0-1.3); Monocytes % 9.1 %; Neutrophils # 4.2 K/mcL (1.6-8.9); Platelet Count 259 K/mcL (140-400); Red Blood Count 4.79 M/mcL (4.19-5.50); Red Cell Distribution Width 12.5 % (11.5-14.5); Segmented Neutrophils % 54.4 %; White Blood Count 7.7 K/mcL (4.3-11.1)
[2019-10-26 17:44] LABS: Acetaminophen < 10 mcg/mL (10-20); BUN/Creatinine Ratio 18 (6-26); Blood Urea Nitrogen 12 mg/dL (6-20); Calcium 9.5 mg/dL (8.6-10.3); Carbon Dioxide 28 mEq/L (23-29); Chloride 103 mEq/L (98-107); Ethanol < 10 mg/dL (Less than 10); Glucose 89 mg/dL (70-105); Osmolality,Calculated 283 (280-300); Potassium 4.2 mEq/L (3.5-5.1); Salicylate < 2.5 mg/dL (15.0-30.0); Sodium 137 mEq/L (136-145); eGFR For African Americans > 60 (> 60); eGFR For Non-African Americans > 60 (> 60)
[2019-10-26 18:19] LABS: Bilirubin,Urine Small (Negative); Blood,Urine Negative (Negative); Clarity,Urine Clear (Clear); Color,Urine Yellow (Yellow); Glucose,Urine (UA) Normal (Normal); Ketones,Urine Negative (Negative); Leukocyte Esterase,Urine Trace (Negative); Nitrite,Urine Negative (Negative); PH,Urine 6.5 pH Units (5.0-8.0); Protein,Urine Negative (Neg-Trace); Specific Gravity,Urine 1.028 (1.010-1.025)
[2019-10-26 18:21] LABS: Bacteria,Urine None Seen per hpf (None-Few); Hyaline Casts,Urine None Seen per lpf (None-Few); Squamous Epithelial Cell,Urine Many per lpf (None-Few)
[2019-10-26 18:35] LABS: Amphetamine Screen,Urine Positive ng/mL (Cutoff=1000); Barbiturate Screen,Urine Negative ng/mL (Cutoff=200); Benzodiazepines Screen,Urine Negative ng/mL (Cutoff=200); Cannabinoid Screen,Urine Positive ng/mL (Cutoff = 50); Cocaine Screen,Urine Negative ng/mL (Cutoff= 300); Opiate Screen,Urine Negative ng/mL (Cutoff=300); Phencyclidine Screen,Urine Negative ng/mL (Cutoff=25)
[2019-10-26] MEDS ORDERED: Acetaminophen 325 MG TABLET PO PRN (21:57)
[2019-10-26] MEDS ORDERED: Mag Hydrox/Al Hydrox/Simeth 30 ML UDC PO PRN (21:57)
[2019-10-26] MEDS ORDERED: hydrOXYzine pamoate 25 MG CAPSULE PO PRN (21:57)
[2019-10-26] MEDS ORDERED: *HR* LORazepam 2 MG/ML VIAL IM PRN (21:57)
[2019-10-26] MEDS ORDERED: MOM Conc 10 ML UD.LIQ PO PRN (21:57)
[2019-10-26] MEDS ORDERED: haloperidoL 5 MG TABLET PO PRN (21:57)
[2019-10-26] MEDS ORDERED: Haloperidol Lactate 5 MG/ML VIAL IM PRN (21:57)
[2019-10-26] MEDS ORDERED: *HR* LORazepam 1 MG TABLET PO PRN (21:57)
[2019-10-26] MEDS ORDERED: traZODone 50 MG TABLET PO PRN (21:57)
[2019-10-26] MEDS: Gabapentin 300 MG CAPSULE PO SCH (23:43)
[2019-10-26] MEDS: *HR* Buprenorphine HCl 8 MG TAB.SUBL SL SCH (23:44)
[2019-10-27] MEDS: Gabapentin 300 MG CAPSULE PO SCH ×2 (10:04→16:02)
[2019-10-27] MEDS: *HR* Buprenorphine HCl 8 MG TAB.SUBL SL SCH (10:04)
[2019-10-27 10:09] VITALS: BP 122/81
[2019-10-27] MEDS ORDERED: Nicotine 21 MG PATCH.TD24 TD PRN (11:45)
[2019-10-27] MEDS ORDERED: risperiDONE 1 MG TABLET PO SCH (21:00)
== END 2019-10-27 16:50 | disposition home or self-care (01) ==
LOC: 1ANU 16:34 → EMEROOARM 16:34 → 1ANU 22:46
PROVIDERS: ADMIT Psychiatry & Neurology Forensic Psychiatry; ATTEND Psychiatry & Neurology Forensic Psychiatry

== ENCOUNTER 2020-02-17 20:53 | Observation (INO) ==
[2020-02-17] MEDS ORDERED: Tdap (Boostrix) Vaccine 0.5 ML SYRINGE IM ONE (21:37)
[2020-02-17 21:59] LABS: Amphetamine Screen,Urine Positive ng/mL (Cutoff=1000); Barbiturate Screen,Urine Negative ng/mL (Cutoff=200); Benzodiazepines Screen,Urine Positive ng/mL (Cutoff=200); Cannabinoid Screen,Urine Positive ng/mL (Cutoff = 50); Cocaine Screen,Urine Negative ng/mL (Cutoff= 300); Opiate Screen,Urine Negative ng/mL (Cutoff=300); Phencyclidine Screen,Urine Negative ng/mL (Cutoff=25)
[2020-02-17] MEDS ORDERED: *HR* LORazepam 2 MG/ML VIAL IVP ONE (22:15)
[2020-02-17 22:18] LABS: Alanine Aminotransferase 42 Units/L (7-52); Albumin 4.8 g/dL (3.5-5.7); Albumin/Globulin Ratio 1.8 (1.1-2.2); Alkaline Phosphatase 84 Units/L (34-104); Aspartate Amino Transferase 37 Units/L (13-39); BUN/Creatinine Ratio 21 (6-26); Bilirubin,Direct 0.3 mg/dL (0.0-0.2); Bilirubin,Indirect 1.2 mg/dL (0.0-1.0); Bilirubin,Total 1.5 mg/dL (0.3-1.0); Blood Urea Nitrogen 21 mg/dL (6-20); Calcium 9.5 mg/dL (8.6-10.3); Carbon Dioxide 26 mEq/L (23-29); Chloride 99 mEq/L (98-107); Creatine Kinase 333 Units/L (30-223); Globulin 2.7 g/dL (2.4-3.5); Glucose 182 mg/dL (70-105); Magnesium 1.9 mg/dL (1.6-2.6); Osmolality,Calculated 294 (280-300); Sodium 138 mEq/L (136-145); Total Protein 7.5 g/dL (6.4-8.9); eGFR For African Americans > 60 (> 60); eGFR For Non-African Americans > 60 (> 60)
[2020-02-18] MEDS ORDERED: Naloxone 0.4 MG/ML INJ IVP PRN (01:59)
[2020-02-18] MEDS ORDERED: Ringers Solution, Lactated 1,000 ML IVC SCH ×2 (02:00)
[2020-02-18 03:05] LABS: Prothrombin Time 11.3 Seconds (9.4-12.1)
[2020-02-18 03:06] LABS: Eosinophils % 0.1 %; Hematocrit 43.8 % (37.5-50.1); Hemoglobin 14.5 g/dL (12.9-16.9); Immature Granulocytes % 0.4 % (0-4); Lymphocytes # 1.2 K/mcL (0.6-4.6); Lymphocytes % 8.4 %; Mean Corpuscular HGB Conc 33.1 g/dL (31.6-35.5); Mean Corpuscular Hemoglobin 30.4 pg (28.0-33.3); Mean Corpuscular Volume 91.8 fL (83.0-100.0); Mean Platelet Volume 9.6 fL (9.4-12.4); Monocytes # 0.6 K/mcL (0.0-1.3); Monocytes % 4.1 %; Platelet Count 323 K/mcL (140-400); Red Blood Count 4.77 M/mcL (4.19-5.50); Red Cell Distribution Width 12.1 % (11.5-14.5); White Blood Count 13.8 K/mcL (4.3-11.1)
[2020-02-18 03:07] LABS: Activated Partial Thrombo Time 28.3 Seconds (26.0-36.0)
[2020-02-18 03:08] LABS: Alanine Aminotransferase 41 Units/L (7-52); Albumin 4.8 g/dL (3.5-5.7); Albumin/Globulin Ratio 1.8 (1.1-2.2); Alkaline Phosphatase 83 Units/L (34-104); Aspartate Amino Transferase 36 Units/L (13-39); BUN/Creatinine Ratio 27 (6-26); Bilirubin,Total 1.5 mg/dL (0.3-1.0); Blood Urea Nitrogen 20 mg/dL (6-20); Calcium 9.2 mg/dL (8.6-10.3); Carbon Dioxide 27 mEq/L (23-29); Chloride 101 mEq/L (98-107); Globulin 2.7 g/dL (2.4-3.5); Glucose 106 mg/dL (70-105); Magnesium 2.2 mg/dL (1.6-2.6); Osmolality,Calculated 289 (280-300); Phosphorous 2.5 mg/dL (2.7-4.5); Potassium 3.4 mEq/L (3.5-5.1); Sodium 138 mEq/L (136-145); Total Protein 7.5 g/dL (6.4-8.9); eGFR For African Americans > 60 (> 60); eGFR For Non-African Americans > 60 (> 60)
[2020-02-18 05:35] LABS: Bacteria,Urine Few per hpf (None-Few); Bilirubin,Urine Negative (Negative); Blood,Urine Small (Negative); Clarity,Urine Clear (Clear); Color,Urine Yellow (Yellow); Glucose,Urine (UA) Normal (Normal); Hyaline Casts,Urine Moderate per lpf (None Seen); Ketones,Urine 20 mg/dL (Negative); Leukocyte Esterase,Urine Negative (Negative); Mucus,Urine Few per lpf (None-Few); Nitrite,Urine Negative (Negative); Protein,Urine 100 mg/dL (Neg-Trace); RBC,Urine 30-50 per hpf (0-3); Specific Gravity,Urine > 1.030 (1.010-1.025); Sperm,Urine Present (None Seen); Squamous Epithelial Cell,Urine Few per hpf (None-Few); Urobilinogen,Urine Normal (Normal)
[2020-02-18] MEDS ORDERED: Potassium Phosphate 44 MEQ in 0.9 % Sodium Chloride 250 ML IVPB ONE (14:57)
[2020-02-18] MEDS ORDERED: QUEtiapine Fumarate 25 MG TABLET PO SCH (21:00)
[2020-02-19 06:25] LABS: Basophils % 0.5 %; Eosinophils # 0.1 K/mcL (0.0-0.6); Eosinophils % 1.8 %; Hematocrit 41.3 % (37.5-50.1); Hemoglobin 13.8 g/dL (12.9-16.9); Immature Granulocytes % 0.2 % (0-4); Lymphocytes # 2.1 K/mcL (0.6-4.6); Mean Corpuscular HGB Conc 33.4 g/dL (31.6-35.5); Mean Corpuscular Hemoglobin 31.4 pg (28.0-33.3); Mean Corpuscular Volume 93.9 fL (83.0-100.0); Mean Platelet Volume 9.8 fL (9.4-12.4); Monocytes # 0.5 K/mcL (0.0-1.3); Monocytes % 8.7 %; Neutrophils # 3.3 K/mcL (1.6-8.9); Platelet Count 245 K/mcL (140-400); Red Cell Distribution Width 12.3 % (11.5-14.5); Segmented Neutrophils % 53.8 %
[2020-02-19 06:28] LABS: White Blood Count 6.1 K/mcL (4.3-11.1)
[2020-02-19 06:45] LABS: BUN/Creatinine Ratio 24 (6-26); Blood Urea Nitrogen 15 mg/dL (6-20); Carbon Dioxide 25 mEq/L (23-29); Chloride 102 mEq/L (98-107); Glucose 99 mg/dL (70-105); Osmolality,Calculated 283 (280-300); Potassium 3.4 mEq/L (3.5-5.1); Sodium 136 mEq/L (136-145); eGFR For African Americans > 60 (> 60); eGFR For Non-African Americans > 60 (> 60)
[2020-02-19 08:02] VITALS: BP 136/85
[2020-02-19] MEDS ORDERED: (Buprenorphine Hcl/Naloxone Hcl [Buprenorphin-Naloxon SL SCH (10:30)
[2020-02-19] MEDS ORDERED: *HR* Buprenorphine HCl 8 MG TAB.SUBL SL SCH (12:00)
== END 2020-02-19 17:12 | disposition home or self-care (01) ==
LOC: 2NNU 20:53 → EMEROOARM 20:53 → SUATTDRO 02-18 01:23 → 2NNU 02-18 01:53 → 3ANU 02-18 16:50
PROVIDERS: ADMIT Internal Medicine; ATTEND Internal Medicine

== ENCOUNTER 2020-04-03 17:47 | Inpatient (IN) ==
[2020-04-03 18:13] LABS: Basophils % 0.6 %; Eosinophils # 0.1 K/mcL (0.0-0.6); Eosinophils % 1.5 %; Hematocrit 40.8 % (37.5-50.1); Hemoglobin 13.8 g/dL (12.9-16.9); Immature Granulocytes % 0.1 % (0-4); Lymphocytes # 1.8 K/mcL (0.6-4.6); Lymphocytes % 24.7 %; Mean Corpuscular HGB Conc 33.8 g/dL (31.6-35.5); Mean Corpuscular Hemoglobin 30.9 pg (28.0-33.3); Mean Corpuscular Volume 91.5 fL (83.0-100.0); Mean Platelet Volume 10.2 fL (9.4-12.4); Monocytes # 0.9 K/mcL (0.0-1.3); Monocytes % 12.5 %; Neutrophils # 4.4 K/mcL (1.6-8.9); Platelet Count 244 K/mcL (140-400); Red Blood Count 4.46 M/mcL (4.19-5.50); Red Cell Distribution Width 12.5 % (11.5-14.5); Segmented Neutrophils % 60.6 %; White Blood Count 7.2 K/mcL (4.3-11.1)
[2020-04-03 18:31] LABS: Acetaminophen < 10 mcg/mL (10-20); BUN/Creatinine Ratio 17 (6-26); Blood Urea Nitrogen 13 mg/dL (6-20); Calcium 9.5 mg/dL (8.6-10.3); Carbon Dioxide 25 mEq/L (23-29); Chloride 105 mEq/L (98-107); Ethanol < 10 mg/dL (Less than 10); Glucose 108 mg/dL (70-105); Osmolality,Calculated 287 (280-300); Potassium 3.1 mEq/L (3.5-5.1); Salicylate < 2.5 mg/dL (15.0-30.0); Sodium 138 mEq/L (136-145); eGFR For African Americans > 60 (> 60); eGFR For Non-African Americans > 60 (> 60)
[2020-04-03] MEDS ORDERED: Potassium Chloride Elixir 20 MEQ/15 ML UDC PO ONE (18:34)
[2020-04-03 19:07] LABS: Albumin 4.7 g/dL (3.5-5.7); Albumin/Globulin Ratio 1.8 (1.1-2.2); Bilirubin,Direct 0.2 mg/dL (0.0-0.2); Bilirubin,Indirect 1.2 mg/dL (0.0-1.0); Bilirubin,Total 1.4 mg/dL (0.3-1.0); Globulin 2.6 g/dL (2.4-3.5); Magnesium 2.2 mg/dL (1.6-2.6); Thyroid Stimulating Hormone 3.914 mcIU/mL (0.340-5.600); Total Protein 7.3 g/dL (6.4-8.9)
[2020-04-03 20:16] LABS: Bilirubin,Urine Negative (Negative); Blood,Urine Small (Negative); Clarity,Urine Clear (Clear); Color,Urine Yellow (Yellow); Glucose,Urine (UA) Normal (Normal); Hyaline Casts,Urine Few per lpf (None Seen); Ketones,Urine Negative (Negative); Leukocyte Esterase,Urine Negative (Negative); Mucus,Urine Few per lpf (None-Few); Nitrite,Urine Negative (Negative); PH,Urine 5.5 pH Units (5.0-8.0); Protein,Urine Trace mg/dL (Neg-Trace); Specific Gravity,Urine 1.019 (1.010-1.025); Squamous Epithelial Cell,Urine Few per hpf (None-Few); Urobilinogen,Urine Normal (Normal)
[2020-04-03 20:22] LABS: Amphetamine Screen,Urine Positive ng/mL (Cutoff=1000); Barbiturate Screen,Urine Negative ng/mL (Cutoff=200); Benzodiazepines Screen,Urine Positive ng/mL (Cutoff=200); Cannabinoid Screen,Urine Negative ng/mL (Cutoff = 50); Cocaine Screen,Urine Negative ng/mL (Cutoff= 300); Opiate Screen,Urine Negative ng/mL (Cutoff=300); Phencyclidine Screen,Urine Negative ng/mL (Cutoff=25)
[2020-04-03] MEDS ORDERED: Naloxone 0.4 MG/ML INJ IVP PRN (21:49)
[2020-04-03] MEDS ORDERED: *HR* LORazepam 2 MG/ML VIAL IVP ONE (23:47)
[2020-04-04] MEDS ORDERED: Dexmedetomidine HCl 400 MCG/100 ML MLS IVC SCH (00:15)
[2020-04-04] MEDS ORDERED: Dexmedetomidine HCl 400 MCG/100 ML MLS IVC ONE (00:15)
[2020-04-04] MEDS ORDERED: diazePAM 5 MG TABLET PO PRN (00:40)
[2020-04-04] MEDS ORDERED: QUEtiapine Fumarate 25 MG TABLET PO SCH (00:45)
[2020-04-04] MEDS ORDERED: *HR* Buprenorphine HCl 8 MG TAB.SUBL SL SCH (00:45)
[2020-04-04] MEDS: *HR* Buprenorphine HCl 8 MG TAB.SUBL SL SCH ×2 (00:55→08:03)
[2020-04-04 02:34] LABS: Hematocrit 37.4 % (37.5-50.1); Hemoglobin 12.9 g/dL (12.9-16.9); Mean Corpuscular HGB Conc 34.5 g/dL (31.6-35.5); Mean Corpuscular Volume 92.8 fL (83.0-100.0); Mean Platelet Volume 10.4 fL (9.4-12.4); Platelet Count 242 K/mcL (140-400); Red Blood Count 4.03 M/mcL (4.19-5.50); Red Cell Distribution Width 12.6 % (11.5-14.5); White Blood Count 6.9 K/mcL (4.3-11.1)
[2020-04-04 02:51] LABS: Alanine Aminotransferase 31 Units/L (7-52); Albumin 4.2 g/dL (3.5-5.7); Albumin/Globulin Ratio 1.8 (1.1-2.2); Alkaline Phosphatase 62 Units/L (34-104); Aspartate Amino Transferase 33 Units/L (13-39); BUN/Creatinine Ratio 17 (6-26); Bilirubin,Total 1.7 mg/dL (0.3-1.0); Blood Urea Nitrogen 11 mg/dL (6-20); Calcium 8.7 mg/dL (8.6-10.3); Carbon Dioxide 26 mEq/L (23-29); Chloride 103 mEq/L (98-107); Globulin 2.3 g/dL (2.4-3.5); Glucose 108 mg/dL (70-105); Osmolality,Calculated 284 (280-300); Potassium 3.1 mEq/L (3.5-5.1); Sodium 137 mEq/L (136-145); Total Protein 6.5 g/dL (6.4-8.9); eGFR For African Americans > 60 (> 60); eGFR For Non-African Americans > 60 (> 60)
[2020-04-04] MEDS ORDERED: Gabapentin 400 MG CAPSULE PO SCH (09:00)
[2020-04-04] MEDS ORDERED: *HR* Atropine Sulfate 1 MG/10 ML SYRINGE ONE (11:05)
[2020-04-05 02:27] LABS: Basophils % 0.3 %; Eosinophils # 0.3 K/mcL (0.0-0.6); Eosinophils % 2.7 %; Hematocrit 42.8 % (37.5-50.1); Hemoglobin 14.1 g/dL (12.9-16.9); Immature Granulocytes % 0.3 % (0-4); Lymphocytes # 1.4 K/mcL (0.6-4.6); Lymphocytes % 11.9 %; Mean Corpuscular HGB Conc 32.9 g/dL (31.6-35.5); Mean Corpuscular Hemoglobin 30.7 pg (28.0-33.3); Mean Corpuscular Volume 93.2 fL (83.0-100.0); Mean Platelet Volume 10.1 fL (9.4-12.4); Monocytes # 0.8 K/mcL (0.0-1.3); Monocytes % 6.6 %; Platelet Count 209 K/mcL (140-400); Red Blood Count 4.59 M/mcL (4.19-5.50); Red Cell Distribution Width 12.7 % (11.5-14.5); Segmented Neutrophils % 78.2 %; White Blood Count 11.5 K/mcL (4.3-11.1)
[2020-04-05 02:33] LABS: INR 1.1; Prothrombin Time 12.1 Seconds (9.4-12.1)
[2020-04-05 02:47] LABS: Alanine Aminotransferase 30 Units/L (7-52); Albumin 4.1 g/dL (3.5-5.7); Albumin/Globulin Ratio 1.8 (1.1-2.2); Alkaline Phosphatase 77 Units/L (34-104); Aspartate Amino Transferase 26 Units/L (13-39); BUN/Creatinine Ratio 21 (6-26); Bilirubin,Direct 0.2 mg/dL (0.0-0.2); Bilirubin,Total 1.2 mg/dL (0.3-1.0); Blood Urea Nitrogen 14 mg/dL (6-20); Calcium 8.9 mg/dL (8.6-10.3); Carbon Dioxide 25 mEq/L (23-29); Chloride 106 mEq/L (98-107); Globulin 2.3 g/dL (2.4-3.5); Glucose 73 mg/dL (70-105); Osmolality,Calculated 289 (280-300); Potassium 3.4 mEq/L (3.5-5.1); Sodium 140 mEq/L (136-145); Total Protein 6.4 g/dL (6.4-8.9); eGFR For African Americans > 60 (> 60); eGFR For Non-African Americans > 60 (> 60)
[2020-04-06 05:36] LABS: Basophils % 0.4 %; Eosinophils # 0.3 K/mcL (0.0-0.6); Eosinophils % 4.5 %; Hematocrit 43.6 % (37.5-50.1); Hemoglobin 14.6 g/dL (12.9-16.9); Immature Granulocytes % 0.3 % (0-4); Lymphocytes % 30.5 %; Mean Corpuscular HGB Conc 33.5 g/dL (31.6-35.5); Mean Corpuscular Hemoglobin 31.5 pg (28.0-33.3); Mean Corpuscular Volume 94.2 fL (83.0-100.0); Mean Platelet Volume 10.6 fL (9.4-12.4); Monocytes # 0.6 K/mcL (0.0-1.3); Monocytes % 9.3 %; Neutrophils # 3.7 K/mcL (1.6-8.9); Platelet Count 241 K/mcL (140-400); Red Blood Count 4.63 M/mcL (4.19-5.50); Red Cell Distribution Width 12.5 % (11.5-14.5); White Blood Count 6.7 K/mcL (4.3-11.1)
[2020-04-06 05:57] LABS: Alanine Aminotransferase 25 Units/L (7-52); Albumin 4.1 g/dL (3.5-5.7); Albumin/Globulin Ratio 1.6 (1.1-2.2); Alkaline Phosphatase 78 Units/L (34-104); Aspartate Amino Transferase 21 Units/L (13-39); BUN/Creatinine Ratio 24 (6-26); Bilirubin,Direct 0.2 mg/dL (0.0-0.2); Bilirubin,Indirect 0.8 mg/dL (0.0-1.0); Blood Urea Nitrogen 14 mg/dL (6-20); Calcium 9.1 mg/dL (8.6-10.3); Carbon Dioxide 25 mEq/L (23-29); Chloride 105 mEq/L (98-107); Globulin 2.5 g/dL (2.4-3.5); Glucose 80 mg/dL (70-105); Magnesium 1.8 mg/dL (1.6-2.6); Osmolality,Calculated 285 (280-300); Potassium 3.8 mEq/L (3.5-5.1); Sodium 138 mEq/L (136-145); Total Protein 6.6 g/dL (6.4-8.9); eGFR For African Americans > 60 (> 60); eGFR For Non-African Americans > 60 (> 60)
[2020-04-06] MEDS: *HR* Enoxaparin 40 MG/0.4 ML SYRINGE SQ SCH (05:57)
[2020-04-06] MEDS: *HR* Buprenorphine HCl 8 MG TAB.SUBL SL SCH ×2 (10:06→20:16)
[2020-04-06] MEDS: Gabapentin 400 MG CAPSULE PO SCH ×3 (10:06→20:15)
[2020-04-06] MEDS: Nicotine 21 MG PATCH.TD24 TD SCH (10:06)
[2020-04-06] MEDS ORDERED: QUEtiapine Fumarate 25 MG TABLET PO SCH (21:00)
[2020-04-06] MEDS ORDERED: QUEtiapine Fumarate 100 MG TABLET PO SCH (21:00)
[2020-04-07] MEDS: *HR* Enoxaparin 40 MG/0.4 ML SYRINGE SQ SCH (04:39)
[2020-04-07 06:37] LABS: Basophils # 0.1 K/mcL (0.0-0.2); Basophils % 0.9 %; Eosinophils # 0.4 K/mcL (0.0-0.6); Hematocrit 43.4 % (37.5-50.1); Immature Granulocytes % 0.2 % (0-4); Lymphocytes # 2.3 K/mcL (0.6-4.6); Lymphocytes % 38.9 %; Mean Corpuscular HGB Conc 32.3 g/dL (31.6-35.5); Mean Corpuscular Hemoglobin 30.4 pg (28.0-33.3); Mean Corpuscular Volume 94.1 fL (83.0-100.0); Monocytes # 0.6 K/mcL (0.0-1.3); Monocytes % 9.4 %; Neutrophils # 2.6 K/mcL (1.6-8.9); Platelet Count 254 K/mcL (140-400); Red Blood Count 4.61 M/mcL (4.19-5.50); Red Cell Distribution Width 12.4 % (11.5-14.5); Segmented Neutrophils % 44.6 %; White Blood Count 5.8 K/mcL (4.3-11.1)
[2020-04-07 06:56] LABS: BUN/Creatinine Ratio 23 (6-26); Blood Urea Nitrogen 17 mg/dL (6-20); Calcium 9.4 mg/dL (8.6-10.3); Carbon Dioxide 28 mEq/L (23-29); Chloride 105 mEq/L (98-107); Glucose 91 mg/dL (70-105); Magnesium 1.7 mg/dL (1.6-2.6); Osmolality,Calculated 287 (280-300); Potassium 3.8 mEq/L (3.5-5.1); Sodium 138 mEq/L (136-145); eGFR For African Americans > 60 (> 60); eGFR For Non-African Americans > 60 (> 60)
[2020-04-07] MEDS: Gabapentin 400 MG CAPSULE PO SCH (09:01)
[2020-04-07] MEDS: Nicotine 21 MG PATCH.TD24 TD SCH (09:02)
[2020-04-07] MEDS: *HR* Buprenorphine HCl 8 MG TAB.SUBL SL SCH (09:05)
[2020-04-07 14:46] VITALS: BP 111/71
== END 2020-04-07 15:14 | disposition home or self-care (01) | DRG 817 ==
LOC: EMEROOARM 17:47 → 3BNU 17:47 → SUATTDRO 21:23 → 3BNU 21:52 → 2NNU 04-04 00:18 → 3ANU 04-05 16:51
PROVIDERS: ADMIT Family Medicine; ATTEND Pharmacist

== ENCOUNTER 2021-08-01 02:40 | Observation (INO) ==
[2021-08-01 04:01] LABS: Basophils # 0.1 K/mcL (0.0-0.2); Basophils % 0.6 %; Eosinophils # 0.2 K/mcL (0.0-0.6); Eosinophils % 2.9 %; Hematocrit 42.1 % (37.5-50.1); Immature Granulocytes % 0.2 % (0-4); Lymphocytes # 2.3 K/mcL (0.6-4.6); Lymphocytes % 28.3 %; Mean Corpuscular HGB Conc 33.3 g/dL (31.6-35.5); Mean Corpuscular Hemoglobin 30.6 pg (28.0-33.3); Mean Corpuscular Volume 91.9 fL (83.0-100.0); Mean Platelet Volume 10.5 fL (9.4-12.4); Monocytes # 0.9 K/mcL (0.0-1.3); Monocytes % 10.6 %; Neutrophils # 4.6 K/mcL (1.6-8.9); Platelet Count 225 K/mcL (140-400); Red Blood Count 4.58 M/mcL (4.19-5.50); Red Cell Distribution Width 12.9 % (11.5-14.5); Segmented Neutrophils % 57.4 %
[2021-08-01 04:15] LABS: Acetaminophen < 10 mcg/mL (10-20); Alanine Aminotransferase 39 Units/L (7-52); Albumin 4.4 g/dL (3.5-5.7); Albumin/Globulin Ratio 1.8 (1.1-2.2); Alkaline Phosphatase 89 Units/L (34-104); Aspartate Amino Transferase 48 Units/L (13-39); BUN/Creatinine Ratio 11 (6-26); Bilirubin,Direct 0.1 mg/dL (0.0-0.2); Bilirubin,Indirect 0.3 mg/dL (0.0-1.0); Bilirubin,Total 0.4 mg/dL (0.3-1.0); Blood Urea Nitrogen 9 mg/dL (6-20); Calcium 8.8 mg/dL (8.6-10.3); Carbon Dioxide 23 mEq/L (23-29); Chloride 105 mEq/L (98-107); Ethanol < 10 mg/dL (Less than 10); Globulin 2.4 g/dL (2.4-3.5); Glucose 109 mg/dL (70-105); Osmolality,Calculated 277 (280-300); Potassium 4.2 mEq/L (3.5-5.1); Salicylate < 2.5 mg/dL (15.0-30.0); Sodium 134 mEq/L (136-145); Total Protein 6.8 g/dL (6.4-8.9); eGFR For African Americans > 60 (> 60); eGFR For Non-African Americans > 60 (> 60)
[2021-08-01] MEDS ORDERED: Haloperidol Lactate 5 MG/ML VIAL IM ONE ×2 (04:41→05:08)
[2021-08-01] MEDS ORDERED: *HR* LORazepam 2 MG/ML VIAL IM ONE (04:42)
[2021-08-01 04:48] LABS: Bilirubin,Urine Negative (Negative); Blood,Urine Negative (Negative); Clarity,Urine Clear (Clear); Color,Urine Light-Yellow (Yellow); Glucose,Urine (UA) Normal (Normal); Ketones,Urine Negative (Negative); Leukocyte Esterase,Urine Negative (Negative); Nitrite,Urine Negative (Negative); PH,Urine 6.5 pH Units (5.0-8.0); Protein,Urine Negative (Neg-Trace); Specific Gravity,Urine 1.017 (1.010-1.025); Urobilinogen,Urine Normal (Normal)
[2021-08-01 05:08] LABS: Amphetamine Screen,Urine Negative ng/mL (Cutoff=1000); Barbiturate Screen,Urine Negative ng/mL (Cutoff=200); Benzodiazepines Screen,Urine Positive ng/mL (Cutoff=200); Cannabinoid Screen,Urine Negative ng/mL (Cutoff = 50); Cocaine Screen,Urine Negative ng/mL (Cutoff= 300); Opiate Screen,Urine Negative ng/mL (Cutoff=300); Phencyclidine Screen,Urine Negative ng/mL (Cutoff=25)
[2021-08-01] MEDS ORDERED: Haloperidol Lactate 5 MG/ML VIAL IVP ONE (08:23)
[2021-08-01] MEDS ORDERED: 0.9 % Sodium Chloride 1,000 ML IVC ONE (08:41)
[2021-08-01] MEDS ORDERED: Nicotine 2 MG GUM BC PRN (08:44)
[2021-08-01] MEDS ORDERED: Ondansetron 4 MG/2 ML VIAL IVP PRN (08:44)
[2021-08-01] MEDS ORDERED: Naloxone 0.4 MG/ML INJ IVP PRN (08:44)
[2021-08-01] MEDS ORDERED: Melatonin 3 MG TABLET PO PRN (08:44)
[2021-08-01] MEDS ORDERED: Acetaminophen 325 MG TABLET PO PRN (08:44)
[2021-08-01] MEDS: Gabapentin 300 MG CAPSULE PO SCH ×3 (09:17→21:13)
[2021-08-01] MEDS: Nicotine 21 MG PATCH.TD24 TD SCH (09:18)
[2021-08-01] MEDS: *HR* Buprenorphine HCl 8 MG TAB.SUBL SL SCH ×2 (09:25→21:13)
[2021-08-01 11:52] LABS: Adenovirus Not Detected (Not Detect); Coronavirus 229E Not Detected (Not Detect); Coronavirus HKU1 Not Detected (Not Detect)
[2021-08-01 11:53] LABS: Bordetella Pertussis Not Detected (Not Detect); Chlamydophila pneumoniae Not Detected (Not Detect); Coronavirus NL63 Not Detected (Not Detect); Coronavirus OC43 Not Detected (Not Detect); Human Metapneumovirus Not Detected (Not Detect); Human Rhinovirus/Enterovirus Not Detected (Not Detect); Influenza A Subtype 2009 H1 Not Detected (Not Detect); Influenza B Not Detected (Not Detect); Mycoplasma pneumoniae Not Detected (Not Detect); Parainfluenza Virus 1 Not Detected (Not Detect); Parainfluenza Virus 2 Not Detected (Not Detect); Parainfluenza Virus 3 Not Detected (Not Detect); Parainfluenza Virus 4 Not Detected (Not Detect); Respiratory Syncytial Virus Not Detected (Not Detect); SARS-CoV-2 Not Detected (Not Detect)
[2021-08-01] MEDS ORDERED: *HR* LORazepam 2 MG/ML VIAL IVP PRN (13:41)
[2021-08-01] MEDS ORDERED: QUEtiapine Fumarate 100 MG TABLET PO SCH (21:00)
[2021-08-01] MEDS ORDERED: QUEtiapine Fumarate 25 MG TABLET PO SCH (21:00)
[2021-08-02] MEDS: Nicotine 21 MG PATCH.TD24 TD SCH (08:11)
[2021-08-02] MEDS: *HR* Buprenorphine HCl 8 MG TAB.SUBL SL SCH (08:12)
[2021-08-02] MEDS: Gabapentin 300 MG CAPSULE PO SCH (08:12)
[2021-08-02 10:08] VITALS: BP 127/77; PULSE 78; TEMP 98.3; O2SAT 96
== END 2021-08-02 14:42 | disposition home or self-care (01) ==
LOC: 3BNU 02:40 → EMEROOARM 02:40 → SUATTDRO 10:15 → 3BNU 12:00
PROVIDERS: ADMIT Internal Medicine; ATTEND Internal Medicine